=== PATIENT | female | born 1940 | race Caucasian/White ===

== ENCOUNTER 2018-04-22 18:18 | Inpatient (IN) | payer OTHER, MEDICARE ==
[2018-04-22] MEDS ORDERED: ACETAMINOPHEN 500 MG TAB PO PRN (19:53)
[2018-04-22] MEDS ORDERED: MAGNESIUM HYDROXIDE 8% 30 ML PO PRN (19:53)
[2018-04-22] MEDS ORDERED: MAGNES/ALUMIN/SIMET 30ML UCUP PO PRN (19:53)
[2018-04-22] MEDS ORDERED: ONDANSETRON 4 MG (ODT) TAB PO PRN (19:53)
[2018-04-22 20:25] LABS: Absolute Lymphocytes (CBC) 1.5 K/uL (0.7-4.9); Absolute Monocytes 0.5 K/uL (0.1-1.3); Absolute Neutrophil 3.7 K/uL (1.8-8.0); Basophils % 0.6 % (0-1.3); Eosinophils % 1.9 % (0-4.4); Hematocrit 38.8 % (36.0-45.0); MPV 8.1 fL (7.6-11.3); Monocytes % 8.4 % (3.3-12.3)
[2018-04-22] MEDS: IPRATROPIUM BROM 0.5MG/2.5ML NEB SCH (20:35)
[2018-04-22] MEDS: ALBUTEROL 2.5 MG/3 ML NEB SOL NEB SCH (20:35)
--- NOTE | 2018-04-22 20:47 | RAD REPORT ---
EXAM DESCRIPTION: Makenzie Sanderson (2 Views)04/22/2018 8:24 pm CLINICAL HISTORY: Cough COMPARISON: April 2017 FINDINGS: The lungs appear clear of acute infiltrate. The heart is borderline enlarged IMPRESSION: No acute abnormalities displayed
[2018-04-22 20:55] LABS: Albumin 3.6 g/dL (3.4-5.0); Bilirubin Total 0.2 mg/dL (0.2-1.0); Magnesium 2.1 mg/dL (1.8-2.4); Potassium 4.1 mmol/L (3.5-5.1); Protein, Total 7.3 g/dL (6.4-8.2); Thyroid Stimulating Hormone 0.398 uIU/mL (0.360-3.740)
[2018-04-22] MEDS ORDERED: CEFTRIAXONE 1 GM/NS 50 ML 1 GM/50 ML BAG IV SCH (21:00)
[2018-04-22] MEDS: DULERA 200/5 (MOMETASONE/FORMOTEROL) INHALER IH SCH (21:00)
[2018-04-22] MEDS: LISINOPRIL 20 MG TAB PO SCH (22:00)
[2018-04-22] MEDS: CEFTRIAXONE/SWI 1gm 1 GM/10 ML SYR IV SCH (22:43)
[2018-04-22] MEDS: ENOXAPARIN 40 MG/0.4 ML SQ SCH (22:55)
[2018-04-22] MEDS: METHYLPREDNISOLONE 40 MG INJ IV SCH (23:31)
[2018-04-22 23:47] VITALS: BMI 27.3
[2018-04-23 00:22] LABS: Urine Appearance CLOUDY; Urine Bilirubin NEGATIVE (NEG); Urine Blood NEGATIVE (NEG); Urine Color YELLOW; Urine Glucose NEGATIVE (NEG); Urine Protein NEGATIVE (NEG)
[2018-04-23 00:24] LABS: Urine Microscopic Reflex ORDER UMIC
[2018-04-23 00:35] LABS: Urine Bacteria LOADED /HPF (<20); Urine Culture Reflex Order REFLEXED; Urine RBC NONE SEEN /HPF (NONE SEEN)
[2018-04-23] MEDS: ALBUTEROL 2.5 MG/3 ML NEB SOL NEB SCH ×4 (02:25→20:50)
[2018-04-23] MEDS: IPRATROPIUM BROM 0.5MG/2.5ML NEB SCH ×4 (02:25→20:50)
[2018-04-23] MEDS: METHYLPREDNISOLONE 40 MG INJ IV SCH ×3 (06:10→17:15)
--- NOTE | 2018-04-23 07:15 | EKG ---
Test Date: 2018-04-22 Test Time: 20:35:57 Yard Hand: RT Zuniga MEASUREMENT RESULTS: Intervals: Rate: 65 MN: 202 QRSD: 86 QT: 404 QTc: 420 Nelson: P: 73 MN: 202 QRS: 12 T: 43 INTERPRETIVE STATEMENTS: Normal sinus rhythm Normal ECG Compared to ECG 12/29/2015 22:14:21 Ventricular premature complex(es) no longer present First degree AV block no longer present Left ventricular hypertrophy no longer present Myocardial infarct finding no longer present Electronically Signed On 04-23-18 07:14:55 [employer] WORK[employer] by Markel Salgado
--- NOTE | 2018-04-23 08:35 | HP ---
Date of Admission: 04/22/2018 Chief Complaint: Cough, congestion, shortness of breath. History Of Present Illness: This is an 78-year-old pleasant female patient who came into office toda y with almost 1-month history of cough, chest congestion, coughing up yellowish to greenish-colored m ucus, shortness of breath, and wheezing. The patient reported that she is having symptoms in last 1 month that some days she feels like she is better, other day she feels like she is worse, and in last few days she is increasingly getting worse, so she came into office today. [facility] until today when she called the office, she was asked to come in. After I evaluated h er, decision was made to admit her to hospital. The patient feels weaker than normal. Walking acros s the room causes her to have shortness of breath. She takes her medications regularly. Allergies: NO KNOWN ALLERGIES. Medications: Advair 500/50 one puff 2 times a day, Spiriva 1 puff daily, Tricor 145 mg daily, vitami n D 1000 unit daily, lisinopril 20 mg twice a day, ProAir inhaler p.r.n., diltiazem CD 240 mg p.o. da britton, Claritin 10 mg daily, Boniva 150 mg once a month, aspirin 81 mg daily, hydrochlorothiazide 12.5 mg p.o. daily. Review of Systems: Respiratory: As mentioned above. All other systems reviewed and negative. Social History: Prior history of smoking, not at present time. Family History: Significant for cervical cancer, lung cancer, and breast cancer. Past Surgical History: Significant for hysterectomy. Past Medical History: Significant for asthma, hypertension, hyperlipidemia, diverticulosis. Physical Examination: Vital Signs: When she came into office today, vital signs included height 62 inches, weight 153.8 po unds, blood pressure 127/81, pulse 100, respiratory rate 20, temperature 98. General: The patient awake, alert, appearing weaker than normal, not in any distress at rest, but wh ile talking to me she was getting into mild respiratory distress. HEENT: Head atraumatic, normocephalic. Conjunctivae nonerythematous. Sclerae white. Mouth, no thr ush or edema noted. Ears/Nose, no mass, lesion, discharge noted. Neck: Supple. No JVD, lymph nodes, bruit, thyromegaly noted. Lungs: Bilateral scattered wheezing and some rales in lower lung nicholson noted. Heart: Normal heart sounds, no murmur or gallop. Abdomen: Soft, bowel sounds normal. No guarding, rigidity, tenderness, mass, hepatosplenomegaly, dis tention, or bruit noted. Extremities: No leg edema. No calf tenderness. Skin: No rash, ulcer, cellulitis. Lymphatics: No lymph node enlargement in neck, supraclavicular, infraclavicular region. Neuro: No focal neurological deficit. Chest: Unremarkable. External Genitalia: Deferred. Rectal: Deferred. Labs: EKG normal sinus rhythm. White count 5.8, hemoglobin 13, platelets 304. Sodium 141, potassiu m 4.1, chloride 105, bicarb 29, BUN 24, creatinine 1.04, glucose 100. Liver function tests unremarka ble. Troponin less than 0.05. TSH 0.398. Chest x-ray, no acute abnormality detected. Impression: 1.Acute exacerbation of asthma. 2.Rule out pneumonia. 3.Hypertension. 4.Hyperlipidemia. 5.Diverticulosis. Plan: Admit the patient to hospital for further evaluation and management of this problem. The kal ent is appropriate for inpatient and is expected to spend 2 midnights in hospital. We will go ahead and continue her home medications per order. Give her oxygen nebulizer treatment, IV steroid, IV ant ibiotic. Sputum culture was ordered. DVT prophylaxis will be given using Lovenox. I will see her t omorrow for followup. The patient is appropriate for inpatient and is expected to spend 2 midnights in the hospital. Details and plan of treatment discussed with her. EMEKA/MODL Voice ID: [id number]
[2018-04-23] MEDS ORDERED: CEFTRIAXONE/SWI 1gm 1 GM/10 ML SYR IV SCH (09:00)
[2018-04-23] MEDS: DILTIAZEM HCL 120 MG SR CAP PO SCH (09:49)
[2018-04-23] MEDS: hydroCHLOROthiazide 12.5 MG CAP PO SCH (09:49)
[2018-04-23] MEDS: LISINOPRIL 20 MG TAB PO SCH ×2 (09:49→20:51)
[2018-04-23] MEDS: CEFTRIAXONE/SWI 1gm 1 GM/10 ML SYR IV SCH ×2 (09:50→21:00)
[2018-04-23] MEDS: TIOTROPIUM 5 SPRAYS/INHALER IH SCH (09:50)
[2018-04-23] MEDS: DULERA 200/5 (MOMETASONE/FORMOTEROL) INHALER IH SCH ×2 (09:50→20:53)
[2018-04-23] MEDS: ENOXAPARIN 40 MG/0.4 ML SQ SCH (20:51)
[2018-04-24] MEDS: METHYLPREDNISOLONE 40 MG INJ IV SCH ×4 (00:43→17:04)
--- NOTE | 2018-04-24 01:17 | PN ---
Date of Progress Note: 04/23/2018 Subjective: The patient was seen this morning for followup. She did get some sleep last night and f eels better today than yesterday. Still has lot of cough, chest congestion, wheezing, but overall sh marco antonio is doing better this morning compared to yesterday. Objective: Vital Signs: Reviewed. HEENT Examination: Unremarkable. Lungs: Bilateral good equal air entry. Scattered wheezing noted in all the lung nicholson which is bet ter today than yesterday. Some rales in lower lung nicholson, better today than yesterday. Heart: Sounds normal. Abdomen: Soft. Bowel sounds normal. No guarding, rigidity, tenderness, distention. Extremity Exam: No leg edema. Impression: 1.Acute exacerbation of asthma. 2.Acute bronchitis. 3.Hypertension. Plan: We will continue current medications. Continue antibiotic, IV steroid, nebulizer daily. Home medications per order. Ambulation was encouraged. I will see her tomorrow for followup. Possible discharge to go home in next 1 or 2 days depending on her condition. EMEKA/MODL Voice ID: [id number] Report ID: [id number]
[2018-04-24] MEDS: ALBUTEROL 2.5 MG/3 ML NEB SOL NEB SCH ×4 (01:55→20:45)
[2018-04-24] MEDS: IPRATROPIUM BROM 0.5MG/2.5ML NEB SCH ×4 (01:55→20:45)
[2018-04-24] MEDS: DULERA 200/5 (MOMETASONE/FORMOTEROL) INHALER IH SCH ×2 (08:38→20:43)
[2018-04-24] MEDS: CEFTRIAXONE/SWI 1gm 1 GM/10 ML SYR IV SCH ×2 (08:39→20:42)
[2018-04-24] MEDS: TIOTROPIUM 5 SPRAYS/INHALER IH SCH (08:40)
[2018-04-24] MEDS: SERTRALINE HCL 50 MG TAB PO SCH (10:06)
[2018-04-24] MEDS: DILTIAZEM HCL 120 MG SR CAP PO SCH (10:07)
[2018-04-24] MEDS: hydroCHLOROthiazide 12.5 MG CAP PO SCH (10:07)
[2018-04-24] MEDS: LISINOPRIL 20 MG TAB PO SCH ×2 (10:08→20:40)
[2018-04-24 18:23] VITALS: O2SAT 92
[2018-04-24] MEDS: ENOXAPARIN 40 MG/0.4 ML SQ SCH (20:42)
[2018-04-25] MEDS: METHYLPREDNISOLONE 40 MG INJ IV SCH ×2 (00:25→06:01)
--- NOTE | 2018-04-25 01:15 | PN ---
Date of Progress Note: 04/24/2018 Subjective: The patient was seen this morning for followup. Her cough, congestion, wheezing, and sh ortness of breath are improving on a nebulizer treatment. She did ambulate well yesterday, 2 to 3 bl ocks. The patient is reporting having some depression problem and tends to cry easily, has been unde r lot of stress lately, and is requesting some medications to help her with this difficult time. No homicidal or suicidal ideation. Objective: Vital Signs: Reviewed. HEENT: Unremarkable. Lungs: Clear to auscultation except bilateral scattered wheezing noted. No rales, not in any respir atory distress, and her wheezing is better today compared to yesterday. Heart: Heart sounds are normal. Abdomen: Soft. Bowel sounds are normal. No guarding, rigidity, tenderness, or distention. Extremities: No leg edema. Impression: 1.Acute exacerbation of asthma. 2.Depression. 3.Acute bronchitis. 4.Hypertension. Plan: We will continue current medication, steroid, antibiotics, nebulizer treatment, inhaler; and w e will go ahead and add Zoloft 25 mg p.o. daily. I will see her tomorrow for followup and possible d ischarge to home tomorrow depending on her condition. EMEKA/MODL Voice ID: [id number] Report ID: [id number]
[2018-04-25] MEDS: IPRATROPIUM BROM 0.5MG/2.5ML NEB SCH ×2 (02:20→07:35)
[2018-04-25] MEDS: ALBUTEROL 2.5 MG/3 ML NEB SOL NEB SCH ×2 (02:20→07:35)
[2018-04-25] MEDS: CEFTRIAXONE/SWI 1gm 1 GM/10 ML SYR IV SCH (08:53)
[2018-04-25] MEDS: DILTIAZEM HCL 120 MG SR CAP PO SCH (08:54)
[2018-04-25] MEDS: LISINOPRIL 20 MG TAB PO SCH (08:55)
[2018-04-25] MEDS: hydroCHLOROthiazide 12.5 MG CAP PO SCH (08:55)
[2018-04-25] MEDS: SERTRALINE HCL 50 MG TAB PO SCH (08:56)
[2018-04-25] MEDS: DULERA 200/5 (MOMETASONE/FORMOTEROL) INHALER IH SCH (08:56)
[2018-04-25] MEDS: TIOTROPIUM 5 SPRAYS/INHALER IH SCH (08:57)
[2018-04-25 08:59] VITALS: BP 148/71
[2018-04-25 10:12] VITALS: TEMP 98
[2018-04-25] MEDS ORDERED: ALBUTEROL 2.5 MG/3 ML NEB SOL NEB ONE (10:44)
== END 2018-04-25 11:50 | disposition home or self-care (01) | DRG 203 ==
LOC: 2ND 18:55
PROVIDERS: ADMIT Internal Medicine; ATTEND Internal Medicine
DX: J45.901 Unspecified asthma with (acute) exacerbation (principal); J20.9 Acute bronchitis, unspecified; I10 Essential (primary) hypertension; E78.5 Hyperlipidemia, unspecified; K57.90 Diverticulosis of intestine, part unspecified, without perforation or abscess without bleeding; F32.9 Major depressive disorder, single episode, unspecified
CPT/HCPCS: 36415; 71046; 80053; 81003; 81015; 83735; 84145; 84443; 85025; 87077; 87086; 87088; 87186; 93005; 94640; J0696; J1650; J2920; J7606

== ENCOUNTER 2018-06-26 14:01 | Emergency (ER) | payer OTHER, MEDICARE ==
[2018-06-26] MEDS ORDERED: CIPROFLOXACIN 400mg IV 400 MG/200 ML BAG IV ONE (18:31)
[2018-06-26] MEDS ORDERED: PANTOPRAZOLE 40 MG INJ ONE (18:31)
[2018-06-26] MEDS ORDERED: NA CHLORIDE 0.9% 1,000 ML ONE (18:31)
[2018-06-26] MEDS ORDERED: NA CHLORIDE 0.9% 250 ML ONE (18:31)
[2018-06-26] MEDS ORDERED: METRONIDAZOLE 500mg IVPB 500 MG/100 ML BAG IV ONE (18:31)
[2018-06-26 18:41] LABS: Absolute Lymphocytes (CBC) 1.6 K/uL (0.7-4.9); Absolute Monocytes 0.5 K/uL (0.1-1.3); Absolute Neutrophil 3.7 K/uL (1.8-8.0); Basophils % 0.8 % (0-1.3); Eosinophils % 1.6 % (0-4.4); Hematocrit 32.7 % (36.0-45.0); Lymphocytes % 26.2 % (15.3-44.8); MPV 9.5 fL (7.6-11.3); RBC Red Blood Cell Count 3.53 M/uL (3.86-4.86)
--- NOTE | 2018-06-26 18:45 | EDPHYS ---
Physician Documentation [facility] Name: Radha Corcoran Age: 78 yrs Sex: Female : 1940 Arrival Date: 06/26/2018 Time: 14:07 Bed 25 Private MD: ED Physician Sam Montiel HPI: 06/26 18:10 This 78 yrs old Female presents to ER via Ambulatory with complaints of checo Bloody Stools. 18:10 The patient presents with abdominal pain in the upper abdomen. Onset: The checo symptoms/episode began/occurred 2 day(s) ago. The patient presents to the emergency department with rectal bleeding, melena. Onset: The symptoms/episode began/occurred. Abdominal pain: none is appreciated. Modifying factors: The symptoms are alleviated by nothing, the symptoms are aggravated by nothing. Associated signs and symptoms: Pertinent positives: dizziness when standing. Modifying factors: The symptoms are alleviated by nothing, the symptoms are aggravated by nothing. Historical: - Allergies: 15:36 No Known Allergies; ph - PMHx: 15:36 Asthma; Hypertension; ph - PSHx: 15:36 Hysterectomy; ph - Immunization history:: Adult Immunizations unknown. - Social history:: Smoking status: Patient uses tobacco products. - Ebola Screening: : Patient negative for fever greater than or equal to 101.5 degrees Fahrenheit, and additional compatible Ebola Virus Disease symptoms Patient denies exposure to infectious person Patient denies travel to an Ebola-affected area in the 21 days before illness onset. ROS: 18:10 Constitutional: Negative for fever, chills, and weight loss, Eyes: Negative for injury, checo pain, redness, and discharge, ENT: Negative for injury, pain, and discharge, Neck: Negative for injury, pain, and swelling, Cardiovascular: Negative for chest pain, palpitations, and edema, Respiratory: Negative for shortness of breath, cough, wheezing, and pleuritic chest pain, Back: Negative for injury and pain, : Negative for injury, bleeding, discharge, and swelling, MS/Extremity: Negative for injury and deformity, Skin: Negative for injury, rash, and discoloration, Neuro: Negative for headache, weakness, numbness, tingling, and seizure. 18:10 Abdomen/GI: Positive for abdominal pain, black/tarry stool. Exam: 18:10 Constitutional: This is a well developed, well nourished patient who is awake, alert, checo and in no acute distress. Head/Face: Normocephalic, atraumatic. Eyes: Pupils equal round and reactive to light, extra-ocular motions intact. Lids and lashes normal. Conjunctiva and sclera are non-icteric and not injected. Cornea within normal limits. Periorbital areas with no swelling, redness, or edema. ENT: Nares patent. No nasal discharge, no septal abnormalities noted. Tympanic membranes are normal and external auditory canals are clear. Oropharynx with no redness, swelling, or masses, exudates, or evidence of obstruction, uvula midline. Mucous membranes moist. Neck: Trachea midline, no thyromegaly or masses palpated, and no cervical lymphadenopathy. Supple, full range of motion without nuchal rigidity, or vertebral point tenderness. No Meningismus. Chest/axilla: Normal chest wall appearance and motion. Nontender with no deformity. No lesions are appreciated. Cardiovascular: Regular rate and rhythm with a normal S1 and S2. No gallops, murmurs, or rubs. Normal PMI, no JVD. No pulse deficits. Respiratory: Lungs have equal breath sounds bilaterally, clear to auscultation and percussion. No rales, rhonchi or wheezes noted. No increased work of breathing, no retractions or nasal flaring. Back: No spinal tenderness. No costovertebral tenderness. Full range of motion. Female : Normal external genitalia. Skin: Warm, dry with normal turgor. Normal color with no rashes, no lesions, and no evidence of cellulitis. MS/ Extremity: Pulses equal, no cyanosis. Neurovascular intact. Full, normal range of motion. Neuro: Awake and alert, GCS 15, oriented to person, place, time, and situation. Cranial nerves II-XII grossly intact. Motor strength 5/5 in all extremities. Sensory grossly intact. Cerebellar exam normal. Normal gait. Psych: Awake, alert, with orientation to person, place and time. Behavior, mood, and affect are within normal limits. 18:10 Abdomen/GI: Inspection: abdomen appears normal, Bowel sounds: normal, Palpation: mild abdominal tenderness, in the epigastric area, right upper quadrant and left upper quadrant. Vital Signs: 15:36 BP 189 / 61; Pulse 76; Resp 18; Temp 98.2; Pulse Ox 97% on R/A; Weight 68.04 kg; Height ph 5 ft. 1 in. (154.94 cm); 17:59 BP 133 / 61 RA; Pulse 64; Resp 16 S; Pulse Ox 98% on R/A; rv 18:55 BP 148 / 82; Pulse 66; Resp 21; Pulse Ox 94% on R/A; ca1 19:50 BP 139 / 59; Pulse 69; Resp 19; Pulse Ox 100% on 2 lpm NC; ca1 20:55 BP 158 / 70; Pulse 70; Resp 19; Pulse Ox 100% on 2 lpm NC; ca1 21:50 BP 143 / 72; Pulse 71; Resp 19; Pulse Ox 100% on 2 lpm NC; ca1 15:36 Body Mass Index 28.34 (68.04 kg, 154.94 cm) ph MDM: 17:50 Patient medically screened. [facility] 18:14 Data reviewed: vital signs, nurses notes, lab test result(s), EKG, radiologic studies, [facility] CT scan, plain films. 06/26 18:10 Order name: Basic Metabolic Panel; Complete Time: 19:13 [facility] 06/26 18:10 Order name: CBC with Diff; Complete Time: 19:13 [facility] 06/26 18:10 Order name: LFT's; Complete Time: 19:13 [facility] 06/26 18:10 Order name: Magnesium; Complete Time: 19:13 [facility] 06/26 18:10 Order name: NT PRO-BNP; Complete Time: 19:13 [facility] 06/26 18:10 Order name: PT-INR; Complete Time: 19:13 [facility] 06/26 18:10 Order name: Troponin (emerg Dept Use Only); Complete Time: 19:13 [facility] 06/26 18:10 Order name: XRAY Chest (1 view); Complete Time: 19:13 [facility] 06/26 18:10 Order name: Lipase; Complete Time: 19:13 [facility] 06/26 18:10 Order name: CT Abd/Pelvis - W/Contrast [facility] 06/26 18:10 Order name: Type And Screen [facility] 06/26 19:55 Order name: ABO/RH no charge [facility] 06/26 20:20 Order name: Urine Dipstick--Ancillary (enter results) mw2 06/26 18:10 Order name: EKG; Complete Time: 18:11 [facility] 06/26 18:10 Order name: Cardiac monitoring; Complete Time: 18:46 [facility] 06/26 18:10 Order name: EKG - Nurse/Tech; Complete Time: 20:21 [facility] 06/26 18:10 Order name: IV Saline Lock; Complete Time: 18:47 [facility] 06/26 18:10 Order name: Labs collected and sent; Complete Time: 18:47 [facility] 06/26 18:10 Order name: O2 Per Protocol; Complete Time: 18:47 [facility] 06/26 18:10 Order name: O2 Sat Monitoring; Complete Time: 18:47 [facility] 06/26 18:10 Order name: Urine Dipstick-Ancillary (obtain specimen); Complete Time: 20:21 [facility] 06/26 18:10 Order name: IV Saline Lock - Large Bore; Complete Time: 18:32 [facility] Administered Medications: Discontinued: NS 0.9% 1000 ml IV at 125 ml/hr continuous 09:50 Drug: NS 0.9% 500 ml Route: IV; Rate: bolus; Site: right antecubital; ca1 21:27 Follow up: Response: No adverse reaction; IV Status: Completed infusion ca1 18:30 Drug: ProTONIX 80 mg Route: IVP; Site: left antecubital; rv 21:28 Follow up: Response: No adverse reaction ca1 18:33 Drug: ProTONIX 8 mg/hr Route: IV; Rate: 25 ml/hr; Site: left antecubital; rv 21:28 Follow up: Response: No adverse reaction; IV Status: Infusion continued upon transfer ca1 18:33 Drug: NS 0.9% 1000 ml Route: IV; Rate: 125 ml/hr; Site: left antecubital; rv 18:35 Drug: Flagyl 500 mg Volume: 100 ml; Route: IVPB; Rate: 200 ml/hr; Infused Over: 30 ca1 mins; Site: right antecubital; 19:10 Follow up: Response: No adverse reaction; IV Status: Completed infusion ca1 19:30 Drug: Cipro 400 mg Volume: 200 ml; Route: IVPB; Infused Over: 60 mins; Site: right ca1 antecubital; 21:27 Follow up: Response: No adverse reaction; IV Status: Completed infusion ca1 19:53 Drug: NS 0.9% with KCl 20 mEq/L 1000 ml Route: IV; Rate: 125 ml/hr; Site: left ca1 antecubital; 21:28 Follow up: IV Status: Infusion continued upon transfer ca1 22:01 Drug: Zofran 4 mg Route: IVP; Site: right antecubital; ca1 22:00 Follow up: Response: Medication administered at discharge. ca1 Disposition: 06/26/18 18:45 Transfer ordered to [facility]. Diagnosis are Abdominal tenderness, Gastrointestinal hemorrhage, unspecified, Anemia, unspecified. - Reason for transfer: Higher level of care. - Accepting physician is to [facility]. - Condition is Stable. - Problem is new. - Symptoms have improved. Signatures: Dispatcher [employer] EDSam Roberts MD MD cha Hall, Patricia, RN RN Richie Higgins RN RN Beba Astudillo RN RN ca1 Corrections: (The following items were deleted from the chart) 19:15 18:45 06/26/2018 18:45 Transfer ordered to [facility]. Diagnosis is checo Abdominal tenderness; Gastrointestinal hemorrhage, unspecified. Reason for transfer: Higher level of care. Accepting physician is to [facility]. Condition is Stable. Problem is new. Symptoms have improved. checo 22:03 19:15 06/26/2018 18:45 Transfer ordered to [facility]. Diagnosis is ca1 Abdominal tenderness; Gastrointestinal hemorrhage, unspecified; Anemia, unspecified. Reason for transfer: Higher level of care. Accepting physician is to [facility]. Condition is Stable. Problem is new. Symptoms have improved. checo
--- NOTE | 2018-06-26 18:45 | ER ---
Nurse's Notes [facility] Name: Radha Corcoran Age: 78 yrs Sex: Female : 1940 Arrival Date: 06/26/2018 Time: 14:07 Bed 25 Private MD: Diagnosis: Abdominal tenderness;Gastrointestinal hemorrhage, unspecified;Anemia, unspecified Presentation: 06/26 15:32 Presenting complaint: Patient states: Abdominal bloating x 1 week and diarrhea, last ph night stools were normal consistency w/ some blood noted, today stools normal w/ " a lot" of bright red in toilet, reports diffuse abdominal pain, worse in RLQ, and dizziness. Transition of care: patient was not received from another setting of care. Onset of symptoms was June 26, 2018. Risk Assessment: Do you want to hurt yourself or someone else? Patient reports no desire to harm self or others. Care prior to arrival: None. 15:32 Method Of Arrival: Ambulatory ph 15:32 Acuity: [facility]I 3 ph 17:36 Initial Sepsis Screen: Does the patient meet any 2 criteria? No. Patient's initial rv sepsis screen is negative. Does the patient have a suspected source of infection? No. Patient's initial sepsis screen is negative. Historical: - Allergies: 15:36 No Known Allergies; ph - PMHx: 15:36 Asthma; Hypertension; ph - PSHx: 15:36 Hysterectomy; ph - Immunization history:: Adult Immunizations unknown. - Social history:: Smoking status: Patient uses tobacco products. - Ebola Screening: : Patient negative for fever greater than or equal to 101.5 degrees Fahrenheit, and additional compatible Ebola Virus Disease symptoms Patient denies exposure to infectious person Patient denies travel to an Ebola-affected area in the 21 days before illness onset. Screenin:35 Abuse screen: Denies threats or abuse. Denies injuries from another. Nutritional rv screening: No deficits noted. Tuberculosis screening: No symptoms or risk factors identified. Fall Risk None identified. Assessment: 17:34 General: Appears in no apparent distress. comfortable, Behavior is calm, cooperative. rv Pain: Denies pain. Neuro: Level of Consciousness is awake, alert, obeys commands, Oriented to person, place, time, situation. Cardiovascular: Capillary refill < 3 seconds. Respiratory: Reports Airway is patent. GI: Reports diarrhea, bloody stool. : No signs and/or symptoms were reported regarding the genitourinary system. EENT: No signs and/or symptoms were reported regarding the EENT system. Derm: Skin is intact. Musculoskeletal: No signs and/or symptoms reported regarding the musculoskeletal system. 18:20 Reassessment: Patient appears in no apparent distress at this time. Patient and/or ca1 family updated on plan of care and expected duration. Pain level reassessed. Patient is alert, oriented x 3, equal unlabored respirations, skin warm/dry/pink. Patient denies pain at this time. 19:25 Reassessment: Patient appears in no apparent distress at this time. Patient and/or ca1 family updated on plan of care and expected duration. Pain level reassessed. Patient is alert, oriented x 3, equal unlabored respirations, skin warm/dry/pink. 20:20 Reassessment: Patient appears in no apparent distress at this time. Patient and/or ca1 family updated on plan of care and expected duration. Pain level reassessed. Patient is alert, oriented x 3, equal unlabored respirations, skin warm/dry/pink. 20:25 Reassessment: Pt to CT scan. ca1 20:35 Reassessment: Called report to Fauzia Green RN at [facility]. ca1 21:21 Reassessment: Patient appears in no apparent distress at this time. Patient and/or ca1 family updated on plan of care and expected duration. Pain level reassessed. Patient is alert, oriented x 3, equal unlabored respirations, skin warm/dry/pink. Awaiting ambulance. 22:01 Reassessment: Patient appears in no apparent distress at this time. Hand off to EMS ca1 [place]. Vital Signs: 15:36 BP 189 / 61; Pulse 76; Resp 18; Temp 98.2; Pulse Ox 97% on R/A; Weight 68.04 kg; Height ph 5 ft. 1 in. (154.94 cm); 17:59 BP 133 / 61 RA; Pulse 64; Resp 16 S; Pulse Ox 98% on R/A; rv 18:55 BP 148 / 82; Pulse 66; Resp 21; Pulse Ox 94% on R/A; ca1 19:50 BP 139 / 59; Pulse 69; Resp 19; Pulse Ox 100% on 2 lpm NC; ca1 20:55 BP 158 / 70; Pulse 70; Resp 19; Pulse Ox 100% on 2 lpm NC; ca1 21:50 BP 143 / 72; Pulse 71; Resp 19; Pulse Ox 100% on 2 lpm NC; ca1 15:36 Body Mass Index 28.34 (68.04 kg, 154.94 cm) ph ED Course: 14:07 Patient arrived in ED. tw3 15:36 Triage completed. ph 15:36 Arm band placed on Patient placed in waiting room, Patient notified of wait time. ph 17:29 Beba Astudillo, RN is Primary Nurse. ca1 17:35 Patient has correct armband on for positive identification. Bed in low position. Call rv light in reach. Side rails up X 1. Pulse ox on. NIBP on. 17:50 Sam Montiel MD is Attending Physician. checo 18:18 Oral contrast given. vm2 18:20 Inserted saline lock: 18 gauge in left antecubital area, using aseptic technique. Blood rv collected. 18:45 XRAY Chest (1 view) In Process Unspecified. EDMS 19:00 Inserted saline lock: 20 gauge in right antecubital area, using aseptic technique. ca1 20:[address] via wheelchair. nj 20:36 CT completed. Patient tolerated procedure well. Patient moved back from CT. nj 20:36 CT Abd/Pelvis - W/Contrast In Process Unspecified. EDMS 22:02 No provider procedures requiring assistance completed. Patient transferred, IV remains ca1 in place. Administered Medications: Discontinued: NS 0.9% 1000 ml IV at 125 ml/hr continuous 09:50 Drug: NS 0.9% 500 ml Route: IV; Rate: bolus; Site: right antecubital; ca1 21:27 Follow up: Response: No adverse reaction; IV Status: Completed infusion ca1 18:30 Drug: ProTONIX 80 mg Route: IVP; Site: left antecubital; rv 21:28 Follow up: Response: No adverse reaction ca1 18:33 Drug: ProTONIX 8 mg/hr Route: IV; Rate: 25 ml/hr; Site: left antecubital; rv 21:28 Follow up: Response: No adverse reaction; IV Status: Infusion continued upon transfer ca1 18:33 Drug: NS 0.9% 1000 ml Route: IV; Rate: 125 ml/hr; Site: left antecubital; rv 18:35 Drug: Flagyl 500 mg Volume: 100 ml; Route: IVPB; Rate: 200 ml/hr; Infused Over: 30 ca1 mins; Site: right antecubital; 19:10 Follow up: Response: No adverse reaction; IV Status: Completed infusion ca1 19:30 Drug: Cipro 400 mg Volume: 200 ml; Route: IVPB; Infused Over: 60 mins; Site: right ca1 antecubital; 21:27 Follow up: Response: No adverse reaction; IV Status: Completed infusion ca1 19:53 Drug: NS 0.9% with KCl 20 mEq/L 1000 ml Route: IV; Rate: 125 ml/hr; Site: left ca1 antecubital; 21:28 Follow up: IV Status: Infusion continued upon transfer ca1 22:01 Drug: Zofran 4 mg Route: IVP; Site: right antecubital; ca1 22:00 Follow up: Response: Medication administered at discharge. ca1 Outcome: 18:45 ER care complete, transfer ordered by . checo 22:03 Transferred by ground EMS to [facility], Transfer form completed. ca1 X-rays sent w/ patient. 22:03 Condition: stable 22:03 Instructed on the need for transfer. 22:03 Patient left the ED. ca1 Signatures: Dispatcher [employer] EDMS Sam Montiel MD MD cha Hall, Patricia, RN RN [facility], Erica Reza 3 Nyla Love 2 Richie Higgins RN RN rv Acob, Cheryl, RN RN ca1 Corrections: (The following items were deleted from the chart) 21:20 17:34 GI: Reports diarrhea, bloody stool, rv ca1 06/27 00:04 00:02 Response: Medication administered at discharge. ca1 ca1
[2018-06-26 18:49] LABS: Protime INR 0.97
--- NOTE | 2018-06-26 18:51 | RAD REPORT ---
EXAM DESCRIPTION: RAD - Chest Single View - 06/26/2018 6:45 pm CLINICAL HISTORY: Cough;Abdominal distention Chest pain. COMPARISON: Chest Pa And Lat (2 Views) dated 04/22/2018; Chest Pa And Lat (2 Views) dated 05/03/2017; C hest Single View dated 12/29/2015; CHEST PA AND LAT 2 VIEW dated 01/20/2014 FINDINGS: Portable technique limits examination quality. The lungs are grossly clear. The heart is normal in size. No displaced fractures.Aortic atheroscleros is. IMPRESSION: No acute intrathoracic process suspected.
[2018-06-26 19:04] LABS: ALT/SGPT 24 U/L (12-78); AST/SGOT 16 U/L (15-37); Albumin 3.5 g/dL (3.4-5.0); Alkaline Phosphatase 25 U/L (45-117); BUN Blood Urea Nitrogen 35 mg/dL (7-18); Bicarbonate 30 mmol/L (21-32); Bilirubin Direct < 0.1 mg/dL (0-0.2); Bilirubin Total 0.2 mg/dL (0.2-1.0); Glucose Level 118 mg/dL (74-106); Lipase 85 U/L (73-393); Magnesium 2.2 mg/dL (1.8-2.4); NT PRO-BNP 280 pg/mL (<450); Potassium 3.2 mmol/L (3.5-5.1); Protein, Total 6.5 g/dL (6.4-8.2); Sodium Level 141 mmol/L (136-145); Troponin (Emerg Dept Use Only) 0.02 ng/mL (0.0-0.045)
[2018-06-26] MEDS ORDERED: NS KCL 20MEQ 1,000 ML IV ONE (20:00)
[2018-06-26] MEDS ORDERED: NA CHLORIDE 0.9% 500 ML ONE ×2 (20:00→20:01)
[2018-06-26 20:36] LABS: Urine Blood 1+ (NEG); Urine Glucose NEGATIVE (NEG); Urine Protein NEGATIVE (NEG); Urine Specific Gravity 1.015 (1.005-1.030); Urine pH 5.5 (5.0-7.0)
--- NOTE | 2018-06-26 20:47 | RAD REPORT ---
EXAM DESCRIPTION: CTAbdomen Pelvis W Contrast - 06/26/2018 8:36 pm CLINICAL HISTORY: Abdominal pain. ABD PAIN COMPARISON: CT ABD PELVIS W CONTRAST dated 08/31/2008 TECHNIQUE: Biphasic CT imaging of the abdomen and pelvis was performed with 100 ml non-ionic IV cont rast. All CT scans are performed using dose optimization technique as appropriate and may include automated exposure control or mA/KV adjustment according to patient size. FINDINGS: The lung bases are clear. Mild diffuse fatty liver is present. No aggressive liver lesion or biliary dilatation. The spleen, ad renal glands are normal. Several cysts are present in both kidneys. No hydronephrosis. The pancreas c ontains a few calcifications likely indicating chronic pancreatitis. No pancreatic ductal dilatation. No bowel obstruction, free air, free fluid or abscess. Prominent diverticulosis is present throughout the colon. No evidence of diverticulitis. The appendix is not identified as a discrete structure, ho wever, no secondary findings of appendicitis are identified. Aortic atherosclerosis is present. No e vidence of significant lymphadenopathy. Moderate lumbosacral degenerative changes. IMPRESSION: Extensive colonic diverticulosis without diverticulitis. No acute intra-abdominal or pel lexx abnormality seen.
[2018-06-26] MEDS ORDERED: ONDANSETRON 4 MG/2 ML VIAL ONE (22:09)
[2018-06-26 23:31] VITALS: TEMP 98.2
[2018-06-26 23:37] VITALS: O2SAT 100
[2018-06-26 23:39] VITALS: BP 158/70
--- NOTE | 2018-06-27 05:32 | EKG ---
Test Date: 2018-06-26 Test Time: 19:24:26 Human Resources Operations Specialist: MILTON MEASUREMENT RESULTS: Intervals: Rate: 65 IN: 134 QRSD: 98 QT: 452 QTc: 470 [place]: P: IN: 134 QRS: 26 T: 158 INTERPRETIVE STATEMENTS: Normal sinus rhythm T wave abnormality, consider anterolateral ischemia Prolonged QT Abnormal ECG Compared to ECG 04/22/2018 20:35:57 T-wave abnormality now present Possible ischemia now present Prolonged QT interval now present Electronically Signed On 06-27-18 05:31:26 CDT by Markel Salgado
== END 2018-06-26 22:03 | disposition short-term general hospital (02) ==
LOC: ER 14:01
DX: D64.9 Anemia, unspecified (principal); K92.2 Gastrointestinal hemorrhage, unspecified; I10 Essential (primary) hypertension; Z72.0 Tobacco use
CPT/HCPCS: 93005; 85025; 80048; 36415; 86900; 83735; 86850; 85610; 86901; 80076; 81003; 84484; 83690; 83880; 74177; 71045; 99285; Q9967; C9113; J7030; J2405; J0744

== ENCOUNTER 2019-02-16 13:17 | Inpatient (IN) | payer OTHER, MEDICARE ==
[2019-02-16 14:11] LABS: Absolute Lymphocytes (CBC) 1.1 K/uL (0.7-4.9); Basophils % 0.7 % (0-1.3); Hematocrit 39.8 % (36.0-45.0); MPV 8.8 fL (7.6-11.3); RBC Red Blood Cell Count 4.47 M/uL (3.86-4.86)
[2019-02-16 14:29] LABS: Albumin 3.9 g/dL (3.4-5.0); Bilirubin Total 0.4 mg/dL (0.2-1.0); Magnesium 1.9 mg/dL (1.8-2.4); Potassium 3.7 mmol/L (3.5-5.1); Protein, Total 6.9 g/dL (6.4-8.2)
--- NOTE | 2019-02-16 14:36 | RAD REPORT ---
EXAM DESCRIPTION: RAD - Chest Pa And Lat (2 Views) - 02/16/2019 2:31 pm CLINICAL HISTORY: afib Chest pain. COMPARISON: Chest Single View dated 06/26/2018; Chest Pa And Lat (2 Views) dated 04/22/2018; Chest Pa A nd Lat (2 Views) dated 05/03/2017; Chest Single View dated 12/29/2015 FINDINGS: The lungs are mildly emphysematous but clear. The heart is mildly enlarged in size. No dis placed fractures. Aortic atherosclerosis.
[2019-02-16 14:38] VITALS: BMI 27.2
[2019-02-16 15:14] LABS: Troponin I < 0.02 ng/mL (0.0-0.045)
[2019-02-16] MEDS: APIXABAN 5 MG TABLET PO SCH ×2 (15:14→22:30)
[2019-02-16] MEDS: SOTALOL HCL 80 MG TAB PO SCH ×2 (15:14→22:30)
--- NOTE | 2019-02-16 15:54 | ECHO ---
HEIGHT: 5 ft 2 in WEIGHT: 149 lb 0 oz DATE OF STUDY: 02/16/[address]: Todd Hameed MD 2-DIMENSIONAL: YES M.MODE: YES DOPPLER: YES COLOR FLOW: YES TDS: NO PORTABLE: NO DEFINITY: NO BUBBLE STUDY: NO DIAGNOSIS: ATRIAL FIBRILLATION CARDIAC HISTORY: CATHERIZATION: NO SURGERY: NO PROSTHETIC VALVE: NO PACEMAKER: NO MEASUREMENTS (cm) DIASTOLIC (NORMALS) SYSTOLIC (NORMALS) IVSd 0.9 (0.6-1.2) LA Diam 3.2 (1.9-4.0) LVEF 52% LVIDd 5.1 (3.5-5.7) LVIDs 3.7 (2.0-3.5) %FS 27% LVPWd 1.0 (0.6-1.2) Ao Diam 2.9 (2.0-3.7) 2 DIMENSIONAL ASSESSMENT: RIGHT ATRIUM: NORAML LEFT ATRIUM: NORMAL RIGHT VENTRICLE: NORMAL LEFT VENTRICLE: NORMAL TRICUSPID VALVE: NORMAL MITRAL VALVE: NORMAL PULMONIC VALVE: NORMAL AORTIC VALVE: MILD SCLEROSIS PERICARDIAL EFFUSION: NONE AORTIC ROOT: NORMAL LEFT VENTRICULAR WALL MOTION: NORMAL DOPPLER/COLOR FLOW: MILD MITRAL AND TRICUSPID REGURGITATION. NORMAL RIGHT VENTRICULAR SYSTOLIC PRESSURE. COMMENTS: NORMAL LEFT VENTRICULAR EJECTION FRACTION. AORTIC SCLEROSIS WITH NO AORTIC STENOSIS OR AORTIC REGURGITATION. MILD MITRAL AND TRICUSPID REGURGITATION. TECHNOLOGIST: Sammy MARTINEZ
--- NOTE | 2019-02-16 21:15 | CON ---
History Of Present Illness: Ms. Corcoran was feeling a little dyspneic for several days. She thought she had a cold, but no fevers or chills or sore throat. She was just more short of breath and fatigued than usual. She saw Dr. Hameed and was found to be in atrial fib. We do not know how long she might have been in atrial fib. We do have electrocardiograms from June of this year when she was in sinus rhythm and she is in atrial fib now. She denies having any diagnosis of atrial fib in the past. She has asthma, onset age 23. She was a cigarette smoker, but stopped more than 30 years ago. Outpatient Medications: Albuterol, diltiazem, fenofibrate, hydrochlorothiazide , tiotropium bromide, vitamin D, acetaminophen, lisinopril, omega-3 fatty acids , fluticasone with salmeterol, sertraline, lansoprazole, multivitamin with iron , benzonatate, lactobacillus acidophilus, probiotic capsules, and docusate sodium. About 10 months ago she had GI bleeding, was found to have severe diverticulosis , diverticulitis. She was transferred to one of the hospitals in [place], underwent a procedure, but she does not know what was done. I assume resection of the worst part of the colon was done. It was a surgical procedure with general anesthesia, laparoscopic, but I do not have any of the results. Physical Examination: General: Patient is 5 feet 2, 149 pounds. Alert, oriented, pleasant, not in distress. Vital Signs: Her heart rate is about 110, irregularly irregular. Abdomen: Soft. Extremities: Trace edema, distal pulses normal. Heart: Irregularly irregular, otherwise normal. An echocardiogram was in progress while I was examining her. Her ejection fraction is normal. She seemed to have mild mitral and tricuspid regurgitation without pulmonary hypertension. Impression: The patient has atrial fibrillation, duration unknown. I would not recommend doing a cardioversion, although she has already received Betapace and Eliquis. I think that is fine, but I would not recommend doing a cardioversion until she has been on Eliquis for a couple of weeks and demonstrated her ability to tolerate it. I say that given her history of diverticulitis, diverticulosis. Her hemoglobin today was 13.4, creatinine 0.72 , blood sugar 91. Troponins are normal. TSH is normal. Thank you very much for your kind referral of Ms. Corcoran. I will follow her with you. CHRISTY Voice ID: [id number] Report ID: [id number]
[2019-02-17 00:59] VITALS: O2SAT 94
[2019-02-17] MEDS: SOTALOL HCL 80 MG TAB PO SCH (10:21)
[2019-02-17] MEDS: APIXABAN 5 MG TABLET PO SCH (10:21)
--- NOTE | 2019-02-17 15:31 | PN ---
Date of Progress Note: 02/17/2019 Ms. Corcoran was admitted by Dr. Hameed on 02/16/[address] Salgado for new onset atrial fibrillat ion. She has a history of asthma and hypertension. There was some question of GI bleed, but her hem oglobin was 13.8. Her EKG showed atrial fibrillation at a rate of 100, but she is now on sotalol and Eliquis. Her heart rate today is in the 80s. She is still in atrial fibrillation. She has receive d 2 doses of that. Echocardiogram with normal ejection fraction with aortic sclerosis, mitral annula r calcification. Chest x-ray shows COPD. She is fairly asymptomatic today from an atrial fibrillati on standpoint. We will give her 1 more dose of sotalol. After that, she can go home on sotalol and Eliquis and if she remains in atrial fibrillation over the next 2 to 3 weeks, we will plan a cardiove rsion then. I will discuss the case further with Dr. Hameed. MARCIA/JADE Voice ID: [id number] Report ID: [id number]
[2019-02-17 17:05] VITALS: BP 119/86; TEMP 97.9
--- NOTE | 2019-02-18 03:47 | DS ---
Date of Discharge: 02/17/2019 Disposition: Discharged home. Physical Examination: HEENT: Unremarkable. Lungs: Clear to auscultation. Heart: Sounds normal. Abdomen: Soft. Bowel sounds normal. No guarding, rigidity, tenderness, or distention. Extremities: No leg edema. Laboratory Data: Labs done during this hospitalization, sodium 142, potassium 3.7, chloride 105, bic arb 31, BUN 17, creatinine 0.82, glucose 91. Liver function tests unremarkable. TSH normal. Tropon ins normal. White count 4.5, hemoglobin 13.4, platelets 236. Echocardiogram done during this hospital stay shows normal ejection fraction 52%. Discharge Medications: Continue prior home medications except stop diltiazem, start sotalol 80 mg tw ice a day, Eliquis 5 mg twice a day. Followup: Follow up with [facility] in 2-3 weeks and follow up in my office on 02/23/2019, at 9 a.m. Discharge Diagnoses: 1.Atrial fibrillation, chronic. 2.Chronic obstructive pulmonary disease. 3.Hypertension. 4.Hyperlipidemia. 5.Diverticulosis. EMEKA/MODL Voice ID: [id number] Report ID: [id number]
--- NOTE | 2019-02-18 04:56 | HP ---
Date of Admission: 02/16/2019 Chief Complaint: Irregular heartbeats. History Of Present Illness: An 78-year-old very pleasant female, regular followup visit. She did no t have any chest pain, palpitations, shortness of breath, or any other specific complaints. Upon exa mination, she was noted to have irregular heartbeats and rapid heart rate. She was sent for a stat E KG. EKG came back atrial fibrillation and she was admitted to the hospital. She denies any recent f ebrile illness. No vomiting or diarrhea type of problem. Medications: List reviewed. Review of Systems: Cardiovascular: As mentioned above, all other systems reviewed and negative. Allergies: NO KNOWN DRUG ALLERGIES. Social History: Prior history of smoking, not at present time. Use of alcohol, negative. Family History: Significant for cervical cancer, lung cancer, breast cancer. Past Surgical History: Significant for hysterectomy. Past Medical History: Asthma, COPD, hypertension, hyperlipidemia, diverticulosis. Physical Examination: Vital Signs: Temperature 98.2, pulse 109, respiratory rate 18, blood pressure 143/103, oxygen satura tion 97%, height 5 feet 3 inches, weight 149 pounds, blood pressure . General: Awake, alert, oriented, not in distress. HEENT: Head atraumatic, normocephalic. Conjunctivae nonerythematous. Sclerae white. Mouth, no thr ush or edema noted. Ears/Nose, no mass, lesion, discharge noted. Neck: Supple. No JVD, lymph nodes, bruit, thyromegaly noted. Lungs: Bilateral good equal air entry. Clear to auscultation. No rhonchi. No rales. Heart: Presence of irregular heartbeats. Abdomen: Soft, bowel sounds normal. No guarding, rigidity, tenderness, mass, hepatosplenomegaly, dis tention, or bruit noted. Extremities: No leg edema. No calf tenderness. Skin: No rash, ulcer, cellulitis. Lymphatics: No lymph node enlargement in neck, supraclavicular, infraclavicular region. Neuro: No focal neurological deficit. Chest: Unremarkable. External Genitalia: Deferred. Rectal: Deferred. Laboratory Data: White count 4.5, hemoglobin 13.4, platelets 236. Sodium 132, potassium 3.7, chlori de 105, bicarb 31, BUN 17, creatinine 0.82, glucose 91. Liver function tests unremarkable. Troponin less than 0.03. TSH 1.67. Chest x-ray, no acute cardiopulmonary changes. Impression: 1.Atrial fibrillation . 2.Hypertension. 3.Hyperlipidemia. 4.Chronic obstructive pulmonary disease. 5.Asthma. 6.Diverticulosis. Plan: Admit the patient to the hospital for further evaluation and management of this problem. The patient is appropriate for inpatient. An injection of start her on anticoagulant medicati on Eliquis and risk and benefit of anticoagulation therapy explained to her. We will start her on an tiarrhythmic medication sotalol. Monitor on telemetry unit. If her condition is stable after 3 dose s, we will plan to discharge her to go home if okay with the paediatric thoracic physician. Echocardiogram was ordere d to be done today. Details of plan of treatment discussed with the patient. I will see her tomorrow for followup. EMEKA/MODL Voice ID: [id number]
--- OUTSIDE RECORDS SUMMARY | 2019-02-22 21:24 | XMS REPORT ---
:1940 [facility] Address [address] [place] [address] Care Team Providers Name Role Phone CHITRA FRENCH Unavailable Unavailable Problems This patient has no known problems. Allergies, Adverse Reactions, Alerts This patient has no known allergies or adverse reactions. Medications This patient has no known medications. Results Test Description Test Time Test Comments Text Results Atomic Results Result Comments BLOOD CULTURE 2018-07-10 20:01:00 Test Item Value Reference Range Comments CULTURE (BEAKER) (test vvsb=3884) No growth in 5 days BLOOD [id number] 20:01:00 Test Item Value Reference Range Comments CULTURE (BEAKER) (test lfua=8404) No growth in 5 days BASIC METABOLIC [id number] 07:48:00 Test Item Value Reference Range Comments SODIUM (BEAKER) (test 134 meq/L 136-145 gvvz=321) POTASSIUM (BEAKER) (test 4.9 meq/L 3.5-5.1 stoc=237) CHLORIDE (BEAKER) (test 101 meq/L 98-107 ezqj=799) CO2 (BEAKER) (test 26 meq/L 22-29 bruz=432) BLOOD UREA NITROGEN 27 mg/dL 7-21 (BEAKER) (test knnc=957) CREATININE (BEAKER) (test 0.67 mg/dL 0.57-1.25 gjcx=119) GLUCOSE RANDOM (BEAKER) 161 mg/dL 70-105 (test cpss=717) CALCIUM (BEAKER) (test 9.1 mg/dL 8.4-10.2 kact=518) EGFR (BEAKER) (test 85 mL/min/1.73 sq m ESTIMATED GFR IS NOT pnpq=8946) ACCURATE CREATININE CLEARANCE IN PREDICTING GLOMERULAR FILTRATION RATE. ESTIMATED GFR IS NOT APPLICABLE FOR DIALYSIS PATIENTS. CBC (HEMOGRAM ONLY)2018-07-09 06:36:00 Test Item Value Reference Range Comments WHITE BLOOD CELL COUNT (BEAKER) (test kewb=085) 5.9 K/ L 3.5-10.5 RED BLOOD CELL COUNT (BEAKER) (test qszl=447) 3.11 M/ L 3.93-5.22 HEMOGLOBIN (BEAKER) (test jcxs=496) 9.7 GM/DL 11.2-15.7 HEMATOCRIT (BEAKER) (test icfi=798) 29.9 % 34.1-44.9 MEAN CORPUSCULAR VOLUME (BEAKER) (test ufwv=855) 96.1 fL 79.4-94.8 MEAN CORPUSCULAR HEMOGLOBIN (BEAKER) (test 31.2 pg 25.6-32.2 gmkm=563) MEAN CORPUSCULAR HEMOGLOBIN CONC (BEAKER) (test 32.4 GM/DL 32.2-35.5 yhpx=533) RED CELL DISTRIBUTION WIDTH (BEAKER) (test 14.9 % 11.7-14.4 xhun=490) PLATELET COUNT (BEAKER) (test kgfx=512) 422 K/CU MM 150-450 MEAN PLATELET VOLUME (BEAKER) (test bhvb=833) 10.4 fL 9.4-12.3 NUCLEATED RED BLOOD CELLS (BEAKER) (test 0 /100 WBC 0-0 eltb=642) BASIC METABOLIC [id number] 05:52:00 Test Item Value Reference Range Comments SODIUM (BEAKER) (test 134 meq/L 136-145 ediq=352) POTASSIUM (BEAKER) (test 4.3 meq/L 3.5-5.1 mlop=060) CHLORIDE (BEAKER) (test 100 meq/L 98-107 pvjn=270) CO2 (BEAKER) (test 25 meq/L 22-29 rjfe=983) BLOOD UREA NITROGEN 21 mg/dL 7-21 (BEAKER) (test rnau=243) CREATININE (BEAKER) (test 0.74 mg/dL 0.57-1.25 usbx=525) GLUCOSE RANDOM (BEAKER) 176 mg/dL 70-105 (test bebe=062) CALCIUM (BEAKER) (test 9.2 mg/dL 8.4-10.2 jaln=242) EGFR (BEAKER) (test 76 mL/min/1.73 sq m ESTIMATED GFR IS NOT rfcg=2181) ACCURATE CREATININE CLEARANCE IN PREDICTING GLOMERULAR FILTRATION RATE. ESTIMATED GFR IS NOT APPLICABLE FOR DIALYSIS PATIENTS. CBC (HEMOGRAM ONLY)2018-07-08 05:16:00 Test Item Value Reference Range Comments WHITE BLOOD CELL COUNT (BEAKER) (test gcah=862) 5.7 K/ L 3.5-10.5 RED BLOOD CELL COUNT (BEAKER) (test xlgi=185) 3.26 M/ L 3.93-5.22 HEMOGLOBIN (BEAKER) (test xaro=224) 10.1 GM/DL 11.2-15.7 HEMATOCRIT (BEAKER) (test ytzz=248) 31.5 % 34.1-44.9 MEAN CORPUSCULAR VOLUME (BEAKER) (test yttw=842) 96.6 fL 79.4-94.8 MEAN CORPUSCULAR HEMOGLOBIN (BEAKER) (test 31.0 pg 25.6-32.2 pbdr=850) MEAN CORPUSCULAR HEMOGLOBIN CONC (BEAKER) (test 32.1 GM/DL 32.2-35.5 eoas=011) RED CELL DISTRIBUTION WIDTH (BEAKER) (test 14.7 % 11.7-14.4 spys=224) PLATELET COUNT (BEAKER) (test emut=356) 386 K/CU MM 150-450 MEAN PLATELET VOLUME (BEAKER) (test qpzj=039) 10.7 fL 9.4-12.3 NUCLEATED RED BLOOD CELLS (BEAKER) (test 0 /100 WBC 0-0 csug=286) BLOOD GAS, [id number] 18:38:00 Test Item Value Reference Range Comments PH ARTERIAL (BEAKER) (test qchb=626) 7.49 7.35-7.45 PCO2 ARTERIAL (BEAKER) (test rhki=723) 37 mmHg 35-45 PO2 ARTERIAL (BEAKER) (test tqjs=261) 76 mmHg 80-90 O2 SATURATION ARTERIAL (BEAKER) (test xpij=573) 95.8 % 96.0-97.0 HCO3 ARTERIAL (BEAKER) (test zrgz=134) 27 mmol/L 21-29 BASE EXCESS ARTERIAL (BEAKER) (test mjrj=074) 3.8 mmol/L -2.0-3.0 PATIENT TEMPERATURE (BEAKER) (test krnz=1433) 37.7 C FIO2 (BEAKER) (test shey=7187) 28.0 % B-TYPE NATRIURETIC FACTOR (BNP)2018-07-06 18:34:00 Test Item Value Reference Range Comments B-TYPE NATRIURETIC PEPTIDE (BEAKER) (test 248 pg/mL 0-100 yvbp=114) RAD, CHEST, 1 VIEW, NON [id number] 17:51:00Reason for exam:->SOBShould this be performed at the bedside?->YesFINAL REPORT History: Shortness of breath. Comparison: 07/02/2018 Findings: Asingle view of the chest is submitted. The patient is rotated to the right. The cardiac silhouette is within normal limits for size. There is atherosclerotic calcification of the elongated aorta. Blunting of the right costophrenic sulcus is similar to previous and suggests a small effusion versus pleural thickening. Adjacent opacity may reflect atelectasis but pneumonitis should be excluded clinically. There is no pneumothorax, evidence of overt pulmonary edema or acute bony abnormality. Signed: Liane Arora MDReport Verified Date/ Time: 07/06/2018 17:51:18 Reading Location: [address] Reading Room BASI METABOLIC [id number] 06:27:00 Test Item Value Reference Range Comments SODIUM (BEAKER) (test 133 meq/L 136-145 aayd=711) POTASSIUM (BEAKER) (test 3.4 meq/L 3.5-5.1 Specimen slightly khei=722) hemolyzed CHLORIDE (BEAKER) (test 97 meq/L 98-107 rhkt=496) CO2 (BEAKER) (test 25 meq/L 22-29 ilfa=059) BLOOD UREA NITROGEN 14 mg/dL 7-21 (BEAKER) (test fhln=127) CREATININE (BEAKER) (test 0.70 mg/dL 0.57-1.25 Specimen slightly xotr=085) hemolyzed GLUCOSE RANDOM (BEAKER) 100 mg/dL 70-105 (test ghxz=716) CALCIUM (BEAKER) (test 9.0 mg/dL 8.4-10.2 vzae=844) EGFR (BEAKER) (test 81 mL/min/1.73 sq m ESTIMATED GFR IS NOT pjyz=2872) ACCURATE CREATININE CLEARANCE IN PREDICTING GLOMERULAR FILTRATION RATE. ESTIMATED GFR IS NOT APPLICABLE FOR DIALYSIS PATIENTS. CBC W/PLT COUNT & AUTO [id number] 05:54:00 Test Item Value Reference Range Comments WHITE BLOOD CELL COUNT (BEAKER) (test aath=767) 6.9 K/ L 3.5-10.5 RED BLOOD CELL COUNT (BEAKER) (test phio=244) 3.18 M/ L 3.93-5.22 HEMOGLOBIN (BEAKER) (test lcje=366) 9.7 GM/DL 11.2-15.7 HEMATOCRIT (BEAKER) (test eltd=692) 30.2 % 34.1-44.9 MEAN CORPUSCULAR VOLUME (BEAKER) (test cdvt=063) 95.0 fL 79.4-94.8 MEAN CORPUSCULAR HEMOGLOBIN (BEAKER) (test 30.5 pg 25.6-32.2 zghi=195) MEAN CORPUSCULAR HEMOGLOBIN CONC (BEAKER) (test 32.1 GM/DL 32.2-35.5 acxq=797) RED CELL DISTRIBUTION WIDTH (BEAKER) (test 14.3 % 11.7-14.4 nlcv=169) PLATELET COUNT (BEAKER) (test daga=173) 327 K/CU MM 150-450 MEAN PLATELET VOLUME (BEAKER) (test tacw=742) 10.5 fL 9.4-12.3 NUCLEATED RED BLOOD CELLS (BEAKER) (test 0 /100 WBC 0-0 zgja=284) NEUTROPHILS RELATIVE PERCENT (BEAKER) (test 74 % zezq=584) LYMPHOCYTES RELATIVE PERCENT (BEAKER) (test 15 % hrem=212) MONOCYTES RELATIVE PERCENT (BEAKER) (test 8 % swgt=724) EOSINOPHILS RELATIVE PERCENT (BEAKER) (test 2 % rxyu=794) BASOPHILS RELATIVE PERCENT (BEAKER) (test 1 % jmtx=655) NEUTROPHILS ABSOLUTE COUNT (BEAKER) (test 5.06 K/ L 1.56-6.13 rmub=517) LYMPHOCYTES ABSOLUTE COUNT (BEAKER) (test 1.04 K/ L 1.18-3.74 mztk=458) MONOCYTES ABSOLUTE COUNT (BEAKER) (test 0.58 K/ L 0.24-0.36 crfx=380) EOSINOPHILS ABSOLUTE COUNT (BEAKER) (test 0.12 K/ L 0.04-0.36 jncg=064) BASOPHILS ABSOLUTE COUNT (BEAKER) (test 0.04 K/ L 0.01-0.08 vgeo=658) IMMATURE GRANULOCYTES-RELATIVE PERCENT (BEAKER) 0 % 0-1 (test ewby=2163) [id number] 09:53:00 Test Item Value Reference Range Comments PROCALCITONIN (BEAKER) (test whkn=8179) 0.12 ng/mL <0.05 SEPSIS RISK (ng/mL)Low: 0.05-0.50Intermediate: 0.51-2.00High: & gt;=2.01CBC W/PLT COUNT & AUTO [id number] 06:33:00 Test Item Value Reference Range Comments WHITE BLOOD CELL COUNT (BEAKER) (test prbh=738) 5.5 K/ L 3.5-10.5 RED BLOOD CELL COUNT (BEAKER) (test dpgy=048) 2.85 M/ L 3.93-5.22 HEMOGLOBIN (BEAKER) (test cjss=182) 8.7 GM/DL 11.2-15.7 HEMATOCRIT (BEAKER) (test xfqz=906) 26.8 % 34.1-44.9 MEAN CORPUSCULAR VOLUME (BEAKER) (test nsyt=046) 94.0 fL 79.4-94.8 MEAN CORPUSCULAR HEMOGLOBIN (BEAKER) (test 30.5 pg 25.6-32.2 jdie=490) MEAN CORPUSCULAR HEMOGLOBIN CONC (BEAKER) (test 32.5 GM/DL 32.2-35.5 vjet=102) RED CELL DISTRIBUTION WIDTH (BEAKER) (test 14.5 % 11.7-14.4 xmvb=425) PLATELET COUNT (BEAKER) (test zyba=976) 292 K/CU MM 150-450 MEAN PLATELET VOLUME (BEAKER) (test avwz=110) 10.6 fL 9.4-12.3 NUCLEATED RED BLOOD CELLS (BEAKER) (test 0 /100 WBC 0-0 dzhx=188) NEUTROPHILS RELATIVE PERCENT (BEAKER) (test 72 % sazx=621) LYMPHOCYTES RELATIVE PERCENT (BEAKER) (test 15 % xypz=129) MONOCYTES RELATIVE PERCENT (BEAKER) (test 10 % grwp=958) EOSINOPHILS RELATIVE PERCENT (BEAKER) (test 2 % taxr=604) BASOPHILS RELATIVE PERCENT (BEAKER) (test 1 % hlis=302) NEUTROPHILS ABSOLUTE COUNT (BEAKER) (test 3.96 K/ L 1.56-6.13 kksi=473) LYMPHOCYTES ABSOLUTE COUNT (BEAKER) (test 0.80 K/ L 1.18-3.74 ztrd=734) MONOCYTES ABSOLUTE COUNT (BEAKER) (test 0.53 K/ L 0.24-0.36 jzxe=773) EOSINOPHILS ABSOLUTE COUNT (BEAKER) (test 0.13 K/ L 0.04-0.36 cutq=070) BASOPHILS ABSOLUTE COUNT (BEAKER) (test 0.04 K/ L 0.01-0.08 cxue=404) IMMATURE GRANULOCYTES-RELATIVE PERCENT (BEAKER) 0 % 0-1 (test mfto=5111) CBC W/PLT COUNT & AUTO [id number] 04:59:00 Test Item Value Reference Range Comments WHITE BLOOD CELL COUNT (BEAKER) (test frbr=204) 6.7 K/ L 3.5-10.5 RED BLOOD CELL COUNT (BEAKER) (test hlti=833) 3.04 M/ L 3.93-5.22 HEMOGLOBIN (BEAKER) (test wbwu=168) 9.3 GM/DL 11.2-15.7 HEMATOCRIT (BEAKER) (test sryg=292) 29.1 % 34.1-44.9 MEAN CORPUSCULAR VOLUME (BEAKER) (test wjcm=947) 95.7 fL 79.4-94.8 MEAN CORPUSCULAR HEMOGLOBIN (BEAKER) (test 30.6 pg 25.6-32.2 onmr=140) MEAN CORPUSCULAR HEMOGLOBIN CONC (BEAKER) (test 32.0 GM/DL 32.2-35.5 lylu=135) RED CELL DISTRIBUTION WIDTH (BEAKER) (test 14.8 % 11.7-14.4 zwjt=148) PLATELET COUNT (BEAKER) (test mqvk=603) 296 K/CU MM 150-450 MEAN PLATELET VOLUME (BEAKER) (test wbcp=278) 10.6 fL 9.4-12.3 NUCLEATED RED BLOOD CELLS (BEAKER) (test 0 /100 WBC 0-0 nwji=782) NEUTROPHILS RELATIVE PERCENT (BEAKER) (test 67 % ohxu=780) LYMPHOCYTES RELATIVE PERCENT (BEAKER) (test 19 % fmiv=395) MONOCYTES RELATIVE PERCENT (BEAKER) (test 10 % dsbe=368) EOSINOPHILS RELATIVE PERCENT (BEAKER) (test 3 % oslk=575) BASOPHILS RELATIVE PERCENT (BEAKER) (test 1 % zxau=842) NEUTROPHILS ABSOLUTE COUNT (BEAKER) (test 4.49 K/ L 1.56-6.13 hxyn=679) LYMPHOCYTES ABSOLUTE COUNT (BEAKER) (test 1.27 K/ L 1.18-3.74 vlqj=395) MONOCYTES ABSOLUTE COUNT (BEAKER) (test 0.66 K/ L 0.24-0.36 ukwz=785) EOSINOPHILS ABSOLUTE COUNT (BEAKER) (test 0.22 K/ L 0.04-0.36 htpm=102) BASOPHILS ABSOLUTE COUNT (BEAKER) (test 0.04 K/ L 0.01-0.08 xbui=248) IMMATURE GRANULOCYTES-RELATIVE PERCENT (BEAKER) 0 % 0-1 (test vujg=3600) B-TYPE NATRIURETIC FACTOR (BNP)2018-07-03 12:21:00 Test Item Value Reference Range Comments B-TYPE NATRIURETIC PEPTIDE (BEAKER) (test 385 pg/mL 0-100 dkgi=165) BASIC METABOLIC [id number] 03:44:00 Test Item Value Reference Range Comments SODIUM (BEAKER) (test 133 meq/L 136-145 bnwa=119) POTASSIUM (BEAKER) (test 4.1 meq/L 3.5-5.1 bvzq=313) CHLORIDE (BEAKER) (test 103 meq/L 98-107 sfsg=057) CO2 (BEAKER) (test 22 meq/L 22-29 hbbt=046) BLOOD UREA NITROGEN 12 mg/dL 7-21 (BEAKER) (test pylw=285) CREATININE (BEAKER) (test 0.62 mg/dL 0.57-1.25 rpls=780) GLUCOSE RANDOM (BEAKER) 102 mg/dL 70-105 (test krgz=869) CALCIUM (BEAKER) (test 8.4 mg/dL 8.4-10.2 ysqg=435) EGFR (BEAKER) (test 93 mL/min/1.73 sq m ESTIMATED GFR IS NOT szeo=9603) ACCURATE CREATININE CLEARANCE IN PREDICTING GLOMERULAR FILTRATION RATE. ESTIMATED GFR IS NOT APPLICABLE FOR DIALYSIS PATIENTS. LACTIC ACID, [id number] 03:39:00 Test Item Value Reference Range Comments LACTATE BLOOD VENOUS (2) (BEAKER) (test 0.7 mmol/L 0.5-2.2 awzu=3370) CBC W/PLT COUNT & AUTO [id number] 03:22:00 Test Item Value Reference Range Comments WHITE BLOOD CELL COUNT (BEAKER) (test evfz=549) 7.2 K/ L 3.5-10.5 RED BLOOD CELL COUNT (BEAKER) (test oyes=147) 2.87 M/ L 3.93-5.22 HEMOGLOBIN (BEAKER) (test swhu=869) 8.8 GM/DL 11.2-15.7 HEMATOCRIT (BEAKER) (test symy=454) 27.0 % 34.1-44.9 MEAN CORPUSCULAR VOLUME (BEAKER) (test nuda=281) 94.1 fL 79.4-94.8 MEAN CORPUSCULAR HEMOGLOBIN (BEAKER) (test 30.7 pg 25.6-32.2 bvdy=334) MEAN CORPUSCULAR HEMOGLOBIN CONC (BEAKER) (test 32.6 GM/DL 32.2-35.5 siub=904) RED CELL DISTRIBUTION WIDTH (BEAKER) (test 14.6 % 11.7-14.4 hehl=633) PLATELET COUNT (BEAKER) (test otxu=946) 224 K/CU MM 150-450 MEAN PLATELET VOLUME (BEAKER) (test swjr=283) 10.3 fL 9.4-12.3 NUCLEATED RED BLOOD CELLS (BEAKER) (test 0 /100 WBC 0-0 ynzb=018) NEUTROPHILS RELATIVE PERCENT (BEAKER) (test 76 % mynt=304) LYMPHOCYTES RELATIVE PERCENT (BEAKER) (test 13 % gbzj=596) MONOCYTES RELATIVE PERCENT (BEAKER) (test 9 % rqfj=246) EOSINOPHILS RELATIVE PERCENT (BEAKER) (test 1 % gpwt=281) BASOPHILS RELATIVE PERCENT (BEAKER) (test 0 % dmka=346) NEUTROPHILS ABSOLUTE COUNT (BEAKER) (test 5.45 K/ L 1.56-6.13 hnqk=568) LYMPHOCYTES ABSOLUTE COUNT (BEAKER) (test 0.91 K/ L 1.18-3.74 msxf=956) MONOCYTES ABSOLUTE COUNT (BEAKER) (test 0.64 K/ L 0.24-0.36 civj=700) EOSINOPHILS ABSOLUTE COUNT (BEAKER) (test 0.08 K/ L 0.04-0.36 gldk=663) BASOPHILS ABSOLUTE COUNT (BEAKER) (test 0.03 K/ L 0.01-0.08 ytbu=264) IMMATURE GRANULOCYTES-RELATIVE PERCENT (BEAKER) 1 % 0-1 (test uyhw=8390) RAD, CHEST, 1 VIEW, NON [id number] 00:41:00Reason for exam:->acute hypoxiaShould this be performed at the bedside?->YesFINAL REPORT History: Hypoxia. Comparison: Same date at 1300 hours Findings:A single view of the chest is submitted. The examination is limited by low lung volumes and rotationto the left. The cardiac silhouette is within normal limits for size. There is atherosclerotic calcification of the aorta. Central pulmonary vascular prominence and bilateral perihilar interstitial opacities suggest pulmonary edema. There is a small right pleural effusion. Hazy opacity in the right lung base may reflect a combination of atelectasis and edema but pneumonitis should be excluded clinically. There is no pneumothorax or acute bony abnormality. Signed: Liane Arora MDReport Verified Date/Time: 2018 00:41:40 Reading Location: [address] Reading Room POCT- LACTIC ACID, [id number] 20:45:00 Test Item Value Reference Range Comments POC-LACTIC ACID, ARTERIAL 2.1 mmol/L 0.4-1.3 TESTED AT [address] ([place]) (test jnzr=9610) [facility] [address] POCT-BLOOD GASES, [id number] 20:45:00 Test Item Value Reference Range Comments TEMP, CELSIUS-POC (BEAKER) 37.0 (test sxji=5967) FIO2-POC (BEAKER) (test TESTED AT [address] suyt=5265) [place] [id number] PH, ARTERIAL-POC (BEAKER) 7.371 7.350-7.450 (test fjnn=9524) PCO2, ARTERIAL-POC (BEAKER) 37.7 mm Hg 35.0-45.0 (test ppck=5331) PO2, ARTERIAL-POC (BEAKER) 78.0 mm Hg 80.0-90.0 (test qqli=6590) SO2, ARTERIAL-POC (BEAKER) 95.0 % 96.0-97.0 (test fbuv=1410) HCO3, ARTERIAL-POC (BEAKER) 21.9 meq/L 21.0-29.0 (test nbfm=5034) BASE EXCESS, ARTERIAL-POC -3.0 meq/L -2.0-3.0 (BEAKER) (test kkrf=2082) [id number] 20:45:00 Test Item Value Reference Range Comments POC-SODIUM (BEAKER) (test 133 meq/L 135-148 TESTED AT [address] eqzl=1015) [place] [address] [id number] 20:45:00 Test Item Value Reference Range Comments POC-POTASSIUM (BEAKER) (test 3.9 meq/L 3.6-5.5 TESTED AT [address] ckwc=1552) [place] [address] [id number] 20:45:00 Test Item Value Reference Range Comments POC-GLUCOSE (BEAKER) (test 142 mg/dL 70-110 TESTED AT [address] lriz=6966) [place] [address] POCT-CALCIUM [id number] 20:45:00 Test Item Value Reference Range Comments POC-CALCIUM IONIZED (BEAKER) 1.18 mmol/L 1.12-1.27 TESTED AT [address] (test vllp=2956) [place] [address] [id number] 20:45:00 Test Item Value Reference Range Comments POC-HEMATOCRIT (BEAKER) (test 28 % 36-45 TESTED AT [address] piti=3714) [place] [address] [id number] 20:45:00 Test Item Value Reference Range Comments POC-HEMOGLOBIN (BEAKER) 9.5 g/dL 12.0-15.0 TESTED AT [address] (test suer=8317) [place] [address]TESTED AT [place] [address] RESPIRATORY PANEL [id number] 17:58:00 Test Item Value Reference Range Comments HUMAN METAPNEUMOVIRUS (BEAKER) (test Not detected Not detected, Equivocal qadj=6459) RHINOVIRUS (BEAKER) (test kdiq=0240) Not detected Not detected, Equivocal INFLUENZA A (BEAKER) (test mkfl=1984) Not detected Not detected, Equivocal INFLUENZA A (NO SUBTYPE) (test Not detected, Equivocal gsea=5224) INFLUENZA A SUBTYPE H1 (BEAKER) (test Not detected, Equivocal ybxw=3576) INFLUENZA A SUBTYPE H3 (BEAKER) (test Not detected, Equivocal yusj=4744) INFLUENZA A SUBTYPE H1-2009 (BEAKER) Not detected, Equivocal (test vscv=6106) INFLUENZA B (BEAKER) (test anwp=4056) Not detected Not detected, Equivocal RESPIRATORY SYNCYTIAL VIRUS (BEAKER) Not detected Not detected, Equivocal (test usdj=2499) PARAINFLUENZA VIRUS 1 (BEAKER) (test Not detected Not detected, Equivocal adpl=7337) PARAINFLUENZA VIRUS 2 (BEAKER) (test Not detected Not detected, Equivocal cqvj=1561) PARAINFLUENZA VIRUS 3 (BEAKER) (test Not detected Not detected, Equivocal ozhq=0496) PARAINFLUENZA VIRUS 4 (BEAKER) (test Not detected Not detected, Equivocal cffw=2729) ADENOVIRUS (BEAKER) (test oiip=3927) Not detected Not detected, Equivocal CORONAVIRUS 229E (BEAKER) (test Not detected Not detected, Equivocal cppo=6960) CORONAVIRUS HKU1 (BEAKER) (test Not detected Not detected, Equivocal uhlj=9516) CORONAVIRUS NL63 (BEAKER) (test Not detected Not detected, Equivocal rzoj=1915) CORONAVIRUS OC43 (BEAKER) (test Not detected Not detected, Equivocal revk=6636) BORDETELLA PERTUSSIS (BEAKER) (test Not detected Not detected, Equivocal wkcv=3136) CHLAMYDOPHILA PNEUMONIAE (BEAKER) (test Not detected Not detected, Equivocal lpzc=7615) MYCOPLASMA PNEUMONIAE (BEAKER) (test Not detected Not detected, Equivocal yewl=8522) Other viruses and bacteria not targeted by this PCR panel cannot be excluded; therefore clinical correlation and follow up of serology, culture results, and other molecular studies is required. The results are not intended to be used as the sole means for clinical diagnosis or patient management decisions. This sample was tested at the [facility] using the [employer] Respiratory Panel. It is FDA cleared and has been verified and approved by the [facility] for clinical use on nasal swab specimens. It is not FDA-cleared for use on bronchial wash/lavage samples. However, for this sample type, validation was performed and test characteristics were determined and approved, by [facility] for clinical use under the Clinical Laboratory Improvement Amendments (CLIA) of 1988 requirements. Therefore, FDA clearance isnot required. This laboratory is CLIA-certified and [employer] ([employer])-accredited to perform high complexity testing.RAD, CHEST, 1 VIEW, NON [id number] 15:35:00Reason for exam:->feverShould this be performed at the bedside?->YesFINAL REPORT Portable chest. CLINICAL HISTORY: fever. COMPARISON STUDY: 2018. FINDINGS: The cardiac silhouette is enlarged. The pulmonary parenchyma demonstrates bibasilar atelectasis or consolidation with costophrenic angle blunting. No pneumothorax is seen. Degenerative changes are noted. IMPRESSION: Bibasilar atelectasis or consolidation with costophrenic angleblunting, slightly more pronounced on the right side than on previous. In the right clinical setting, a superimposed infection would be difficult to exclude. Clinical correlation and short term imagingfollow-up could be made to exclude other etiologies. Signed: Zen Aguilar MDReport Verified Date/Time: 07/02/2018 15:35:00 Reading Location: [address] Consult Reading Room HEMOGLOBIN AND [id number] 14:58 :00 Test Item Value Reference Range Comments HEMOGLOBIN (BEAKER) (test jvap=353) 8.9 GM/DL 11.2-15.7 HEMATOCRIT (BEAKER) (test tnum=717) 26.5 % 34.1-44.9 RAPID INFLUENZA A&B [id number] 11:44:00 Test Item Value Reference Range Comments RAPID INFLUENZA A AG (BEAKER) (test Negative Negative, Inconclusive dioq=3028) RAPID INFLUENZA B AG (BEAKER) (test Negative Negative, Inconclusive rqyp=3955) URINALYSIS W/ REFLEX URINE [id number] 11:38:00 Test Item Value Reference Range Comments COLOR (BEAKER) (test syet=370) Yellow CLARITY (BEAKER) (test bgmu=456) Clear SPECIFIC GRAVITY UA (BEAKER) (test blye=474) 1.016 1.001-1.035 PH UA (BEAKER) (test flzk=625) 6.0 5.0-8.0 PROTEIN UA (BEAKER) (test uupe=586) Negative Negative GLUCOSE UA (BEAKER) (test dgfn=068) Negative Negative KETONES UA (BEAKER) (test eulu=710) Negative Negative BILIRUBIN UA (BEAKER) (test mrzb=784) Negative Negative BLOOD UA (BEAKER) (test radq=510) Negative Negative NITRITE UA (BEAKER) (test dqvv=580) Negative Negative LEUKOCYTE ESTERASE UA (BEAKER) (test rmkq=901) Moderate Negative UROBILINOGEN UA (BEAKER) (test eals=257) 0.2 mg/dL 0.2-1.0 RBC UA (BEAKER) (test uefs=244) 1 /HPF WBC UA (BEAKER) (test yzal=720) 13 /HPF MUCUS (BEAKER) (test wabx=9229) Occasional SQUAMOUS EPITHELIAL (BEAKER) (test fyoo=223) 1 /HPF SOURCE(BEAKER) (test jxci=5322) BASIC METABOLIC [id number] 06:10:00 Test Item Value Reference Range Comments SODIUM (BEAKER) (test 133 meq/L 136-145 iuau=659) POTASSIUM (BEAKER) (test 4.2 meq/L 3.5-5.1 mxvx=784) CHLORIDE (BEAKER) (test 104 meq/L 98-107 cnyn=570) CO2 (BEAKER) (test 23 meq/L 22-29 dtdp=035) BLOOD UREA NITROGEN 11 mg/dL 7-21 (BEAKER) (test mjcz=013) CREATININE (BEAKER) (test 0.63 mg/dL 0.57-1.25 xqkw=748) GLUCOSE RANDOM (BEAKER) 94 mg/dL 70-105 (test pvib=681) CALCIUM (BEAKER) (test 8.5 mg/dL 8.4-10.2 jckb=764) EGFR (BEAKER) (test 91 mL/min/1.73 sq m ESTIMATED GFR IS NOT ngql=3188) ACCURATE CREATININE CLEARANCE IN PREDICTING GLOMERULAR FILTRATION RATE. ESTIMATED GFR IS NOT APPLICABLE FOR DIALYSIS PATIENTS. CBC W/PLT COUNT & AUTO [id number] 05:38:00 Test Item Value Reference Range Comments WHITE BLOOD CELL COUNT (BEAKER) (test kaxm=015) 7.0 K/ L 3.5-10.5 RED BLOOD CELL COUNT (BEAKER) (test xfea=471) 3.18 M/ L 3.93-5.22 HEMOGLOBIN (BEAKER) (test mtbf=693) 9.6 GM/DL 11.2-15.7 HEMATOCRIT (BEAKER) (test qpef=739) 29.8 % 34.1-44.9 MEAN CORPUSCULAR VOLUME (BEAKER) (test gjhk=808) 93.7 fL 79.4-94.8 MEAN CORPUSCULAR HEMOGLOBIN (BEAKER) (test 30.2 pg 25.6-32.2 sxnn=688) MEAN CORPUSCULAR HEMOGLOBIN CONC (BEAKER) (test 32.2 GM/DL 32.2-35.5 tlnb=864) RED CELL DISTRIBUTION WIDTH (BEAKER) (test 14.7 % 11.7-14.4 szmx=814) PLATELET COUNT (BEAKER) (test rljd=717) 215 K/CU MM 150-450 MEAN PLATELET VOLUME (BEAKER) (test brwo=802) 10.3 fL 9.4-12.3 NUCLEATED RED BLOOD CELLS (BEAKER) (test 0 /100 WBC 0-0 qvxu=808) NEUTROPHILS RELATIVE PERCENT (BEAKER) (test 78 % wttr=056) LYMPHOCYTES RELATIVE PERCENT (BEAKER) (test 12 % hmzu=555) MONOCYTES RELATIVE PERCENT (BEAKER) (test 8 % fbxb=908) EOSINOPHILS RELATIVE PERCENT (BEAKER) (test 2 % ncmx=976) BASOPHILS RELATIVE PERCENT (BEAKER) (test 0 % hzkq=694) NEUTROPHILS ABSOLUTE COUNT (BEAKER) (test 5.43 K/ L 1.56-6.13 orsz=067) LYMPHOCYTES ABSOLUTE COUNT (BEAKER) (test 0.81 K/ L 1.18-3.74 nkmv=547) MONOCYTES ABSOLUTE COUNT (BEAKER) (test 0.56 K/ L 0.24-0.36 hfnb=567) EOSINOPHILS ABSOLUTE COUNT (BEAKER) (test 0.11 K/ L 0.04-0.36 kowr=525) BASOPHILS ABSOLUTE COUNT (BEAKER) (test 0.02 K/ L 0.01-0.08 bicj=566) IMMATURE GRANULOCYTES-RELATIVE PERCENT (BEAKER) 0 % 0-1 (test soxl=7626) HEMOGLOBIN AND [id number] 00:52:00 Test Item Value Reference Range Comments HEMOGLOBIN (BEAKER) (test qbpe=536) 9.3 GM/DL 11.2-15.7 HEMATOCRIT (BEAKER) (test noqb=461) 28.1 % 34.1-44.9 U/S, [id number] 11:14:00Reason for exam:->?stenosis of Aortic branches noted on ECHOFINAL REPORT Aorta Ultrasound: Clinical Indication: Stenosis of aortic branches noted on echo Comparison: No comparison at this institution Technique:Multiple transaxial and longitudinal images were obtained through the aorta using a five MHz transducer. Spectral and colorflow Doppler images were submitted for interpretation. 56 images were submitted for interpretation. Proximal aorta (at celiac axis): AP measurement 1.9 cm Transverse measurement 2.2 cm Mid aorta (at renalarteries): AP measurement 1.6 cm Transverse measurement 1.9 cm Distal aorta (above iliac bifurcation): AP measurement 1.6 cm Transverse measurement 1.6cm Right Common Iliac Artery: 1.0 cmLeft Common Iliac Artery: 0.9 cm Aorta Color Doppler: Within normal limitsArterial Waveform: NormalPeriaortic Fluid: NegativeAscites: Negative Impression:There no evidence of an aortic aneurysm. There no evidence ofa common iliac artery aneurysm. The origins of the celiac axis, superior mesenteric artery and inferior mesenteric artery are not adequately evaluated. If a hemodynamically significant stenosis is suspected correlation with a CTA or angiogram is recommended if clinically appropriate. Signed: Keisha Lucero MDReport Verified Date/Time: 07/01/2018 11:14:28 Reading Location: [address] Ultrasound Reading Room HEMOGLOBIN AND [id number] 10:42:00 Test Item Value Reference Range Comments HEMOGLOBIN (BEAKER) (test tdsd=858) 7.4 GM/DL 11.2-15.7 HEMATOCRIT (BEAKER) (test lxpn=722) 22.7 % 34.1-44.9 HEMOGLOBIN AND [id number] 22:49:00 Test Item Value Reference Range Comments HEMOGLOBIN (BEAKER) (test qvjz=515) 7.2 GM/DL 11.2-15.7 HEMATOCRIT (BEAKER) (test foby=463) 23.0 % 34.1-44.9 HEMOGLOBIN AND [id number] 11:52:00 Test Item Value Reference Range Comments HEMOGLOBIN (BEAKER) (test tgwv=838) 8.4 GM/DL 11.2-15.7 HEMATOCRIT (BEAKER) (test tluf=563) 28.5 % 34.1-44.9 BASIC METABOLIC [id number] 05:57:00 Test Item Value Reference Range Comments SODIUM (BEAKER) (test 136 meq/L 136-145 pdaf=518) POTASSIUM (BEAKER) (test 3.9 meq/L 3.5-5.1 cohw=344) CHLORIDE (BEAKER) (test 105 meq/L 98-107 qtvy=993) CO2 (BEAKER) (test 25 meq/L 22-29 eprv=935) BLOOD UREA NITROGEN 15 mg/dL 7-21 (BEAKER) (test pxaa=075) CREATININE (BEAKER) (test 0.73 mg/dL 0.57-1.25 hsbw=029) GLUCOSE RANDOM (BEAKER) 107 mg/dL 70-105 (test qmvi=314) CALCIUM (BEAKER) (test 8.2 mg/dL 8.4-10.2 apbi=489) EGFR (BEAKER) (test 77 mL/min/1.73 sq m ESTIMATED GFR IS NOT ezjx=3014) ACCURATE CREATININE CLEARANCE IN PREDICTING GLOMERULAR FILTRATION RATE. ESTIMATED GFR IS NOT APPLICABLE FOR DIALYSIS PATIENTS. CBC (HEMOGRAM ONLY)2018-06-30 05:18:00 Test Item Value Reference Range Comments WHITE BLOOD CELL COUNT (BEAKER) (test lqeq=695) 5.6 K/ L 3.5-10.5 RED BLOOD CELL COUNT (BEAKER) (test nrvi=286) 2.62 M/ L 3.93-5.22 HEMOGLOBIN (BEAKER) (test gqez=596) 8.1 GM/DL 11.2-15.7 HEMATOCRIT (BEAKER) (test whjv=887) 25.0 % 34.1-44.9 MEAN CORPUSCULAR VOLUME (BEAKER) (test xeno=229) 95.4 fL 79.4-94.8 MEAN CORPUSCULAR HEMOGLOBIN (BEAKER) (test 30.9 pg 25.6-32.2 nkri=090) MEAN CORPUSCULAR HEMOGLOBIN CONC (BEAKER) (test 32.4 GM/DL 32.2-35.5 dqhk=781) RED CELL DISTRIBUTION WIDTH (BEAKER) (test 14.8 % 11.7-14.4 qxoo=288) PLATELET COUNT (BEAKER) (test cdzu=148) 208 K/CU MM 150-450 MEAN PLATELET VOLUME (BEAKER) (test jkdw=443) 10.4 fL 9.4-12.3 NUCLEATED RED BLOOD CELLS (BEAKER) (test 0 /100 WBC 0-0 kavp=160) [id number] 06:00:00 Test Item Value Reference Range Comments MAGNESIUM (BEAKER) (test pumu=099) 2.0 mg/dL 1.6-2.6 BASIC METABOLIC [id number] 06:00:00 Test Item Value Reference Range Comments SODIUM (BEAKER) (test 141 meq/L 136-145 bosn=673) POTASSIUM (BEAKER) (test 3.7 meq/L 3.5-5.1 hbvy=699) CHLORIDE (BEAKER) (test 110 meq/L 98-107 lgql=369) CO2 (BEAKER) (test 24 meq/L 22-29 qzrb=356) BLOOD UREA NITROGEN 8 mg/dL 7-21 (BEAKER) (test vyoq=270) CREATININE (BEAKER) (test 0.70 mg/dL 0.57-1.25 ezed=149) GLUCOSE RANDOM (BEAKER) 93 mg/dL 70-105 (test nrpe=233) CALCIUM (BEAKER) (test 8.5 mg/dL 8.4-10.2 puxy=176) EGFR (BEAKER) (test 81 mL/min/1.73 sq m ESTIMATED GFR IS NOT cjgt=9336) ACCURATE CREATININE CLEARANCE IN PREDICTING GLOMERULAR FILTRATION RATE. ESTIMATED GFR IS NOT APPLICABLE FOR DIALYSIS PATIENTS. CBC (HEMOGRAM ONLY)2018-06-29 05:27:00 Test Item Value Reference Range Comments WHITE BLOOD CELL COUNT (BEAKER) (test kbfw=370) 4.5 K/ L 3.5-10.5 RED BLOOD CELL COUNT (BEAKER) (test emxy=454) 3.09 M/ L 3.93-5.22 HEMOGLOBIN (BEAKER) (test sjjb=566) 9.4 GM/DL 11.2-15.7 HEMATOCRIT (BEAKER) (test zyhu=705) 28.8 % 34.1-44.9 MEAN CORPUSCULAR VOLUME (BEAKER) (test zkyq=124) 93.2 fL 79.4-94.8 MEAN CORPUSCULAR HEMOGLOBIN (BEAKER) (test 30.4 pg 25.6-32.2 bfhe=021) MEAN CORPUSCULAR HEMOGLOBIN CONC (BEAKER) (test 32.6 GM/DL 32.2-35.5 hzly=117) RED CELL DISTRIBUTION WIDTH (BEAKER) (test 14.9 % 11.7-14.4 sjmk=102) PLATELET COUNT (BEAKER) (test bwof=512) 205 K/CU MM 150-450 MEAN PLATELET VOLUME (BEAKER) (test xboz=689) 10.7 fL 9.4-12.3 NUCLEATED RED BLOOD CELLS (BEAKER) (test 0 /100 WBC 0-0 bcws=884) RAD, ABDOMEN/KUB, 1 VIEW [id number] 23:50:00Reason for exam:->evaluate for obstruction; acute onset abdominal pain with decreased flatusFINAL REPORT CLINICAL HISTORY: [place] pain with decreased flatus, concern for bowel obstruction COMPARISON: None. FINDINGS: A single supine view of the abdomen is submitted. Theabdominal bowel gas pattern is nonspecific but grossly unobstructed. There is gas and enteric contrast in normal caliber large intestine, which extends to the rectum. No focus of gas dilated small bowel is identified. There is no evidence of organomegaly or significant ascites. No abnormal calcification is noted. There is no acute bony abnormality. Signed: Liane Arora MDReport Verified Date/Time: 06/28/2018 23:50:09 Reading Location : [address] Reading Room Electronically signedby: LIANE ARORA M.D. on 06/28/2018 11:50 PMHEMOGLOBIN AND [id number] 13:24:00 Test Item Value Reference Range Comments HEMOGLOBIN (BEAKER) (test idpb=109) 9.6 GM/DL 11.2-15.7 HEMATOCRIT (BEAKER) (test uahn=545) 29.3 % 34.1-44.9 BASIC METABOLIC [id number] 05:37:00 Test Item Value Reference Range Comments SODIUM (BEAKER) (test 141 meq/L 136-145 rwaj=118) POTASSIUM (BEAKER) (test 4.0 meq/L 3.5-5.1 hbhp=342) CHLORIDE (BEAKER) (test 110 meq/L 98-107 fpvo=093) CO2 (BEAKER) (test 23 meq/L 22-29 upjt=269) BLOOD UREA NITROGEN 13 mg/dL 7-21 (BEAKER) (test bxta=726) CREATININE (BEAKER) (test 0.73 mg/dL 0.57-1.25 skmu=803) GLUCOSE RANDOM (BEAKER) 100 mg/dL 70-105 (test hwrt=607) CALCIUM (BEAKER) (test 8.4 mg/dL 8.4-10.2 irxr=517) EGFR (BEAKER) (test 77 mL/min/1.73 sq m ESTIMATED GFR IS NOT iebb=8627) ACCURATE CREATININE CLEARANCE IN PREDICTING GLOMERULAR FILTRATION RATE. ESTIMATED GFR IS NOT APPLICABLE FOR DIALYSIS PATIENTS. B-TYPE NATRIURETIC FACTOR (BNP)2018-06-28 04:57:00 Test Item Value Reference Range Comments B-TYPE NATRIURETIC PEPTIDE (BEAKER) (test 291 pg/mL 0-100 qqbm=098) [id number] 04:52:00 Test Item Value Reference Range Comments MAGNESIUM (BEAKER) (test mkrd=296) 2.3 mg/dL 1.6-2.6 CBC (HEMOGRAM ONLY)2018-06-28 04:37:00 Test Item Value Reference Range Comments WHITE BLOOD CELL COUNT 6.2 K/ L 3.5-10.5 (BEAKER) (test zbwd=797) RED BLOOD CELL COUNT (BEAKER) 3.36 M/ L 3.93-5.22 (test joup=282) HEMOGLOBIN (BEAKER) (test 10.2 GM/DL 11.2-15.7 nfim=115) HEMATOCRIT (BEAKER) (test 31.1 % 34.1-44.9 vnqq=387) MEAN CORPUSCULAR VOLUME 92.6 fL 79.4-94.8 Discordant MCV results (BEAKER) (test hovz=020) compared to previous results; clinical correlation required. MEAN CORPUSCULAR HEMOGLOBIN 30.4 pg 25.6-32.2 (BEAKER) (test ftrd=058) MEAN CORPUSCULAR HEMOGLOBIN 32.8 GM/DL 32.2-35.5 CONC (BEAKER) (test djbz=065) RED CELL DISTRIBUTION WIDTH 15.4 % 11.7-14.4 (BEAKER) (test ugav=311) PLATELET COUNT (BEAKER) (test 198 K/CU MM 150-450 nhbt=526) MEAN PLATELET VOLUME (BEAKER) 10.8 fL 9.4-12.3 (test gqdr=703) NUCLEATED RED BLOOD CELLS 0 /100 WBC 0-0 (BEAKER) (test kcox=699) HEMOGLOBIN AND [id number] 20:46:00 Test Item Value Reference Range Comments HEMOGLOBIN (BEAKER) (test cpit=734) 10.5 GM/DL 11.2-15.7 HEMATOCRIT (BEAKER) (test wkrc=882) 31.5 % 34.1-44.9 RAD, CHEST, 1 VIEW, NON [id number] 15:18:00Reason for exam:-> dyspneaShould this be performed at the bedside?->YesFINAL REPORT CLINICAL HISTORY: dyspnea TECHNIQUE: 1 view of the chest. COMPARISON: None IMPRESSION: There are no focal infiltrates or effusions. The cardiomediastinal silhouetteis magnified by technique. The osseous structures appear intact. Signed: Ashleigh Aburto MDReport Verified Date/Time: 06/27/2018 15 :18:20 Reading Location: [address] Consult Reading Room HEMOGLOBIN AND [id number] 14:44:00 Test Item Value Reference Range Comments HEMOGLOBIN (BEAKER) (test nqwp=895) 8.6 GM/DL 11.2-15.7 HEMATOCRIT (BEAKER) (test ccby=548) 26.5 % 34.1-44.9 POCT-LACTIC ACID, [id number] 13:49:00 Test Item Value Reference Range Comments POC-LACTIC ACID, VENOUS 0.7 mmol/L 0.9-1.7 TESTED AT [facility] [address] (BEAKER) (test dtqh=7161) [place] [address] [id number] 10:25:00 Test Item Value Reference Range Comments PROTIME (BEAKER) (test pxsp=457) 14.0 seconds 11.7-14.7 INR (BEAKER) (test arbo=405) 1.1 <=5.9 PARTIAL THROMBOPLASTIN TIME (BEAKER) (test 24.6 seconds 22.5-36.0 npqc=395) RECOMMENDED COUMADIN/WARFARIN INR THERAPY RANGESSTANDARD DOSE: 2.0 - 3.0 Includes: PROPHYLAXIS forvenous thrombosis, systemic embolization; TREATMENT for venous thrombosis and/or pulmonary embolus.HIGH RISK: Target INR is 2.5-3.5 for patients with mechanical heart valves.HEMOGLOBIN AND [id number] 09 :55:00 Test Item Value Reference Range Comments HEMOGLOBIN (BEAKER) (test ksdn=211) 7.1 GM/DL 11.2-15.7 HEMATOCRIT (BEAKER) (test jlvh=969) 22.4 % 34.1-44.9 CBC (HEMOGRAM ONLY)2018-06-27 06:28:00 Test Item Value Reference Range Comments WHITE BLOOD CELL COUNT (BEAKER) (test nktm=682) 6.2 K/ L 3.5-10.5 RED BLOOD CELL COUNT (BEAKER) (test ahze=227) 2.21 M/ L 3.93-5.22 HEMOGLOBIN (BEAKER) (test tbou=538) 6.7 GM/DL 11.2-15.7 HEMATOCRIT (BEAKER) (test abvo=264) 23.4 % 34.1-44.9 MEAN CORPUSCULAR VOLUME (BEAKER) (test ctah=243) 105.9 fL 79.4-94.8 MEAN CORPUSCULAR HEMOGLOBIN (BEAKER) (test 30.3 pg 25.6-32.2 shpu=014) MEAN CORPUSCULAR HEMOGLOBIN CONC (BEAKER) (test 28.6 GM/DL 32.2-35.5 rjaq=086) RED CELL DISTRIBUTION WIDTH (BEAKER) (test 14.1 % 11.7-14.4 urlf=340) PLATELET COUNT (BEAKER) (test jokg=754) 180 K/CU MM 150-450 MEAN PLATELET VOLUME (BEAKER) (test tgbz=270) 10.9 fL 9.4-12.3 NUCLEATED RED BLOOD CELLS (BEAKER) (test 0 /100 WBC 0-0 zwzp=397) BASIC METABOLIC [id number] 06:28:00 Test Item Value Reference Range Comments SODIUM (BEAKER) (test 137 meq/L 136-145 huxy=751) POTASSIUM (BEAKER) (test 4.3 meq/L 3.5-5.1 eqsc=568) CHLORIDE (BEAKER) (test 110 meq/L 98-107 msxu=309) CO2 (BEAKER) (test 20 meq/L 22-29 kixb=014) BLOOD UREA NITROGEN 31 mg/dL 7-21 (BEAKER) (test eazi=864) CREATININE (BEAKER) (test 0.72 mg/dL 0.57-1.25 vtud=310) GLUCOSE RANDOM (BEAKER) 130 mg/dL 70-105 (test dcdi=455) CALCIUM (BEAKER) (test 7.3 mg/dL 8.4-10.2 sokn=894) EGFR (BEAKER) (test 78 mL/min/1.73 sq m ESTIMATED GFR IS NOT vjdb=5402) ACCURATE CREATININE CLEARANCE IN PREDICTING GLOMERULAR FILTRATION RATE. ESTIMATED GFR IS NOT APPLICABLE FOR DIALYSIS PATIENTS. HEPATIC FUNCTION [id number] 06:28:00 Test Item Value Reference Range Comments TOTAL PROTEIN (BEAKER) (test muuu=732) 4.4 gm/dL 6.0-8.3 ALBUMIN (BEAKER) (test llbf=7980) 2.8 g/dL 3.5-5.0 BILIRUBIN TOTAL (BEAKER) (test crzs=888) 0.2 mg/dL 0.2-1.2 BILIRUBIN DIRECT (BEAKER) (test wwcn=804) 0.1 mg/dL 0.1-0.5 ALKALINE PHOSPHATASE (BEAKER) (test wcxj=101) 15 U/L 40-150 AST (SGOT) (BEAKER) (test sadx=887) 14 U/L 5-34 ALT (SGPT) (BEAKER) (test rwkq=833) 12 U/L 6-55 [id number] 06:27:00 Test Item Value Reference Range Comments MAGNESIUM (BEAKER) (test msta=000) 1.8 mg/dL 1.6-2.6
== END 2019-02-17 18:45 | disposition home or self-care (01) | DRG 310 ==
LOC: INTOOBSV 13:17 → 4TH 13:17 → OBSVTOIN 13:17
PROVIDERS: ADMIT Internal Medicine; ATTEND Internal Medicine
DX: I48.20 Chronic atrial fibrillation, unspecified (principal); J44.9 Chronic obstructive pulmonary disease, unspecified; I10 Essential (primary) hypertension; E78.5 Hyperlipidemia, unspecified; K57.90 Diverticulosis of intestine, part unspecified, without perforation or abscess without bleeding
CPT/HCPCS: 36415; 71046; 80048; 80053; 83735; 84443; 84484; 85025; 93005; 93306

== ENCOUNTER 2019-02-23 10:44 | Inpatient (IN) | payer OTHER, MEDICARE ==
--- OUTSIDE RECORDS SUMMARY | 2019-02-23 11:15 | XMS REPORT ---
:1940 Author Organization [facility]3 Michele Booth. [address] [place] [id number] Care Team Providers Name Role Phone CHITRA FRENCH Unavailable Unavailable Problems This patient has no known problems. Allergies, Adverse Reactions, Alerts This patient has no known allergies or adverse reactions. Medications This patient has no known medications. Results Test Description Test Time Test Comments Text Results Atomic Results Result Comments BLOOD CULTURE 2018-07-10 20:01:00 Test Item Value Reference Range Comments CULTURE (BEAKER) (test ngtl=5508) No growth in 5 days BLOOD [id number] 20:01:00 Test Item Value Reference Range Comments CULTURE (BEAKER) (test dakp=1396) No growth in 5 days BASIC METABOLIC [id number] 07:48:00 Test Item Value Reference Range Comments SODIUM (BEAKER) (test 134 meq/L 136-145 quid=369) POTASSIUM (BEAKER) (test 4.9 meq/L 3.5-5.1 hmjo=786) CHLORIDE (BEAKER) (test 101 meq/L 98-107 wztg=663) CO2 (BEAKER) (test 26 meq/L 22-29 hbpq=479) BLOOD UREA NITROGEN 27 mg/dL 7-21 (BEAKER) (test qrlx=406) CREATININE (BEAKER) (test 0.67 mg/dL 0.57-1.25 djxh=319) GLUCOSE RANDOM (BEAKER) 161 mg/dL 70-105 (test klkt=999) CALCIUM (BEAKER) (test 9.1 mg/dL 8.4-10.2 jrpu=668) EGFR (BEAKER) (test 85 mL/min/1.73 sq m ESTIMATED GFR IS NOT ugzp=4423) ACCURATE CREATININE CLEARANCE IN PREDICTING GLOMERULAR FILTRATION RATE. ESTIMATED GFR IS NOT APPLICABLE FOR DIALYSIS PATIENTS. CBC (HEMOGRAM ONLY)2018-07-09 06:36:00 Test Item Value Reference Range Comments WHITE BLOOD CELL COUNT (BEAKER) (test howq=995) 5.9 K/ L 3.5-10.5 RED BLOOD CELL COUNT (BEAKER) (test yzpn=554) 3.11 M/ L 3.93-5.22 HEMOGLOBIN (BEAKER) (test vhtq=127) 9.7 GM/DL 11.2-15.7 HEMATOCRIT (BEAKER) (test xpsf=046) 29.9 % 34.1-44.9 MEAN CORPUSCULAR VOLUME (BEAKER) (test dnmi=142) 96.1 fL 79.4-94.8 MEAN CORPUSCULAR HEMOGLOBIN (BEAKER) (test 31.2 pg 25.6-32.2 hhiq=717) MEAN CORPUSCULAR HEMOGLOBIN CONC (BEAKER) (test 32.4 GM/DL 32.2-35.5 htgn=109) RED CELL DISTRIBUTION WIDTH (BEAKER) (test 14.9 % 11.7-14.4 ieby=019) PLATELET COUNT (BEAKER) (test siff=460) 422 K/CU MM 150-450 MEAN PLATELET VOLUME (BEAKER) (test nrei=952) 10.4 fL 9.4-12.3 NUCLEATED RED BLOOD CELLS (BEAKER) (test 0 /100 WBC 0-0 borr=911) BASIC METABOLIC [id number] 05:52:00 Test Item Value Reference Range Comments SODIUM (BEAKER) (test 134 meq/L 136-145 xizm=430) POTASSIUM (BEAKER) (test 4.3 meq/L 3.5-5.1 rrgc=675) CHLORIDE (BEAKER) (test 100 meq/L 98-107 mhkz=492) CO2 (BEAKER) (test 25 meq/L 22-29 gapa=070) BLOOD UREA NITROGEN 21 mg/dL 7-21 (BEAKER) (test fzqj=755) CREATININE (BEAKER) (test 0.74 mg/dL 0.57-1.25 cvns=069) GLUCOSE RANDOM (BEAKER) 176 mg/dL 70-105 (test owwe=194) CALCIUM (BEAKER) (test 9.2 mg/dL 8.4-10.2 pspq=684) EGFR (BEAKER) (test 76 mL/min/1.73 sq m ESTIMATED GFR IS NOT ixgq=1616) ACCURATE CREATININE CLEARANCE IN PREDICTING GLOMERULAR FILTRATION RATE. ESTIMATED GFR IS NOT APPLICABLE FOR DIALYSIS PATIENTS. CBC (HEMOGRAM ONLY)2018-07-08 05:16:00 Test Item Value Reference Range Comments WHITE BLOOD CELL COUNT (BEAKER) (test anoa=018) 5.7 K/ L 3.5-10.5 RED BLOOD CELL COUNT (BEAKER) (test zhgh=459) 3.26 M/ L 3.93-5.22 HEMOGLOBIN (BEAKER) (test urcv=597) 10.1 GM/DL 11.2-15.7 HEMATOCRIT (BEAKER) (test hzfl=586) 31.5 % 34.1-44.9 MEAN CORPUSCULAR VOLUME (BEAKER) (test pyrt=978) 96.6 fL 79.4-94.8 MEAN CORPUSCULAR HEMOGLOBIN (BEAKER) (test 31.0 pg 25.6-32.2 bqtk=701) MEAN CORPUSCULAR HEMOGLOBIN CONC (BEAKER) (test 32.1 GM/DL 32.2-35.5 zlsj=619) RED CELL DISTRIBUTION WIDTH (BEAKER) (test 14.7 % 11.7-14.4 icvu=391) PLATELET COUNT (BEAKER) (test epws=645) 386 K/CU MM 150-450 MEAN PLATELET VOLUME (BEAKER) (test ndhp=514) 10.7 fL 9.4-12.3 NUCLEATED RED BLOOD CELLS (BEAKER) (test 0 /100 WBC 0-0 rxpz=912) BLOOD GAS, [id number] 18:38:00 Test Item Value Reference Range Comments PH ARTERIAL (BEAKER) (test wilf=561) 7.49 7.35-7.45 PCO2 ARTERIAL (BEAKER) (test bpvl=330) 37 mmHg 35-45 PO2 ARTERIAL (BEAKER) (test xngz=551) 76 mmHg 80-90 O2 SATURATION ARTERIAL (BEAKER) (test sbqn=615) 95.8 % 96.0-97.0 HCO3 ARTERIAL (BEAKER) (test tbwz=223) 27 mmol/L 21-29 BASE EXCESS ARTERIAL (BEAKER) (test hhla=167) 3.8 mmol/L -2.0-3.0 PATIENT TEMPERATURE (BEAKER) (test xusd=9982) 37.7 C FIO2 (BEAKER) (test qqzy=0747) 28.0 % B-TYPE NATRIURETIC FACTOR (BNP)2018-07-06 18:34:00 Test Item Value Reference Range Comments B-TYPE NATRIURETIC PEPTIDE (BEAKER) (test 248 pg/mL 0-100 vahd=532) RAD, CHEST, 1 VIEW, NON [id number] 17:51:00Reason for exam:->SOBShould this be performed at [...] Verified Date/ Time: 07/06/2018 17:51:18 Reading Location: [address] Reading Room [facility] METABOLIC [id number] 06:27:00 Test Item Value Reference Range Comments SODIUM (BEAKER) (test 133 meq/L 136-145 oazq=414) POTASSIUM (BEAKER) (test 3.4 meq/L 3.5-5.1 Specimen slightly rpki=194) hemolyzed CHLORIDE (BEAKER) (test 97 meq/L 98-107 atms=820) CO2 (BEAKER) (test 25 meq/L 22-29 dtmo=451) BLOOD UREA NITROGEN 14 mg/dL 7-21 (BEAKER) (test dypn=155) CREATININE (BEAKER) (test 0.70 mg/dL 0.57-1.25 Specimen slightly udoa=619) hemolyzed GLUCOSE RANDOM (BEAKER) 100 mg/dL 70-105 (test jsnz=376) CALCIUM (BEAKER) (test 9.0 mg/dL 8.4-10.2 aidr=856) EGFR (BEAKER) (test 81 mL/min/1.73 sq m ESTIMATED GFR IS NOT hotw=2637) ACCURATE CREATININE CLEARANCE IN PREDICTING GLOMERULAR FILTRATION RATE. ESTIMATED GFR IS NOT APPLICABLE FOR DIALYSIS PATIENTS. CBC W/PLT COUNT & AUTO [id number] 05:54:00 Test Item Value Reference Range Comments WHITE BLOOD CELL COUNT (BEAKER) (test cbdp=604) 6.9 K/ L 3.5-10.5 RED BLOOD CELL COUNT (BEAKER) (test zpfr=392) 3.18 M/ L 3.93-5.22 HEMOGLOBIN (BEAKER) (test vofi=998) 9.7 GM/DL 11.2-15.7 HEMATOCRIT (BEAKER) (test onxe=059) 30.2 % 34.1-44.9 MEAN CORPUSCULAR VOLUME (BEAKER) (test ualg=450) 95.0 fL 79.4-94.8 MEAN CORPUSCULAR HEMOGLOBIN (BEAKER) (test 30.5 pg 25.6-32.2 dnjy=934) MEAN CORPUSCULAR HEMOGLOBIN CONC (BEAKER) (test 32.1 GM/DL 32.2-35.5 rmed=549) RED CELL DISTRIBUTION WIDTH (BEAKER) (test 14.3 % 11.7-14.4 clhu=831) PLATELET COUNT (BEAKER) (test etvs=632) 327 K/CU MM 150-450 MEAN PLATELET VOLUME (BEAKER) (test vfrs=553) 10.5 fL 9.4-12.3 NUCLEATED RED BLOOD CELLS (BEAKER) (test 0 /100 WBC 0-0 uxiz=158) NEUTROPHILS RELATIVE PERCENT (BEAKER) (test 74 % cljv=226) LYMPHOCYTES RELATIVE PERCENT (BEAKER) (test 15 % xknv=707) MONOCYTES RELATIVE PERCENT (BEAKER) (test 8 % kicj=912) EOSINOPHILS RELATIVE PERCENT (BEAKER) (test 2 % wsma=364) BASOPHILS RELATIVE PERCENT (BEAKER) (test 1 % tdig=425) NEUTROPHILS ABSOLUTE COUNT (BEAKER) (test 5.06 K/ L 1.56-6.13 wowd=931) LYMPHOCYTES ABSOLUTE COUNT (BEAKER) (test 1.04 K/ L 1.18-3.74 mpsv=209) MONOCYTES ABSOLUTE COUNT (BEAKER) (test 0.58 K/ L 0.24-0.36 okca=951) EOSINOPHILS ABSOLUTE COUNT (BEAKER) (test 0.12 K/ L 0.04-0.36 ujzl=149) BASOPHILS ABSOLUTE COUNT (BEAKER) (test 0.04 K/ L 0.01-0.08 jkcv=004) IMMATURE GRANULOCYTES-RELATIVE PERCENT (BEAKER) 0 % 0-1 (test ctyw=4712) [id number] 09:53:00 Test Item Value Reference Range Comments PROCALCITONIN (BEAKER) (test tjca=9983) 0.12 ng/mL <0.05 SEPSIS RISK (ng/mL)Low: 0.05-0.50Intermediate: 0.51-2.00High: & gt;=2.01CBC W/PLT COUNT & AUTO [id number] 06:33:00 Test Item Value Reference Range Comments WHITE BLOOD CELL COUNT (BEAKER) (test vlvp=739) 5.5 K/ L 3.5-10.5 RED BLOOD CELL COUNT (BEAKER) (test rjzr=880) 2.85 M/ L 3.93-5.22 HEMOGLOBIN (BEAKER) (test tehn=989) 8.7 GM/DL 11.2-15.7 HEMATOCRIT (BEAKER) (test gjfc=479) 26.8 % 34.1-44.9 MEAN CORPUSCULAR VOLUME (BEAKER) (test emlo=410) 94.0 fL 79.4-94.8 MEAN CORPUSCULAR HEMOGLOBIN (BEAKER) (test 30.5 pg 25.6-32.2 dmqz=317) MEAN CORPUSCULAR HEMOGLOBIN CONC (BEAKER) (test 32.5 GM/DL 32.2-35.5 vvpo=800) RED CELL DISTRIBUTION WIDTH (BEAKER) (test 14.5 % 11.7-14.4 smpe=811) PLATELET COUNT (BEAKER) (test clac=473) 292 K/CU MM 150-450 MEAN PLATELET VOLUME (BEAKER) (test eoiq=139) 10.6 fL 9.4-12.3 NUCLEATED RED BLOOD CELLS (BEAKER) (test 0 /100 WBC 0-0 stoh=182) NEUTROPHILS RELATIVE PERCENT (BEAKER) (test 72 % tnzs=805) LYMPHOCYTES RELATIVE PERCENT (BEAKER) (test 15 % lfhk=303) MONOCYTES RELATIVE PERCENT (BEAKER) (test 10 % wmsz=708) EOSINOPHILS RELATIVE PERCENT (BEAKER) (test 2 % iehf=414) BASOPHILS RELATIVE PERCENT (BEAKER) (test 1 % ocyz=472) NEUTROPHILS ABSOLUTE COUNT (BEAKER) (test 3.96 K/ L 1.56-6.13 uzma=996) LYMPHOCYTES ABSOLUTE COUNT (BEAKER) (test 0.80 K/ L 1.18-3.74 oztp=305) MONOCYTES ABSOLUTE COUNT (BEAKER) (test 0.53 K/ L 0.24-0.36 dhwp=537) EOSINOPHILS ABSOLUTE COUNT (BEAKER) (test 0.13 K/ L 0.04-0.36 sekv=403) BASOPHILS ABSOLUTE COUNT (BEAKER) (test 0.04 K/ L 0.01-0.08 tucm=049) IMMATURE GRANULOCYTES-RELATIVE PERCENT (BEAKER) 0 % 0-1 (test izbk=9440) CBC W/PLT COUNT & AUTO [id number] 04:59:00 Test Item Value Reference Range Comments WHITE BLOOD CELL COUNT (BEAKER) (test hpie=245) 6.7 K/ L 3.5-10.5 RED BLOOD CELL COUNT (BEAKER) (test etdk=679) 3.04 M/ L 3.93-5.22 HEMOGLOBIN (BEAKER) (test asgt=999) 9.3 GM/DL 11.2-15.7 HEMATOCRIT (BEAKER) (test fcfi=993) 29.1 % 34.1-44.9 MEAN CORPUSCULAR VOLUME (BEAKER) (test aict=477) 95.7 fL 79.4-94.8 MEAN CORPUSCULAR HEMOGLOBIN (BEAKER) (test 30.6 pg 25.6-32.2 rbmh=486) MEAN CORPUSCULAR HEMOGLOBIN CONC (BEAKER) (test 32.0 GM/DL 32.2-35.5 kvll=499) RED CELL DISTRIBUTION WIDTH (BEAKER) (test 14.8 % 11.7-14.4 ldjt=234) PLATELET COUNT (BEAKER) (test uezn=384) 296 K/CU MM 150-450 MEAN PLATELET VOLUME (BEAKER) (test vsiv=299) 10.6 fL 9.4-12.3 NUCLEATED RED BLOOD CELLS (BEAKER) (test 0 /100 WBC 0-0 fomk=982) NEUTROPHILS RELATIVE PERCENT (BEAKER) (test 67 % zetd=533) LYMPHOCYTES RELATIVE PERCENT (BEAKER) (test 19 % sizz=639) MONOCYTES RELATIVE PERCENT (BEAKER) (test 10 % exof=324) EOSINOPHILS RELATIVE PERCENT (BEAKER) (test 3 % mcoh=389) BASOPHILS RELATIVE PERCENT (BEAKER) (test 1 % kryp=339) NEUTROPHILS ABSOLUTE COUNT (BEAKER) (test 4.49 K/ L 1.56-6.13 gwqc=264) LYMPHOCYTES ABSOLUTE COUNT (BEAKER) (test 1.27 K/ L 1.18-3.74 udrq=812) MONOCYTES ABSOLUTE COUNT (BEAKER) (test 0.66 K/ L 0.24-0.36 majb=760) EOSINOPHILS ABSOLUTE COUNT (BEAKER) (test 0.22 K/ L 0.04-0.36 gmhc=771) BASOPHILS ABSOLUTE COUNT (BEAKER) (test 0.04 K/ L 0.01-0.08 lukn=827) IMMATURE GRANULOCYTES-RELATIVE PERCENT (BEAKER) 0 % 0-1 (test senw=1398) B-TYPE NATRIURETIC FACTOR (BNP)2018-07-03 12:21:00 Test Item Value Reference Range Comments B-TYPE NATRIURETIC PEPTIDE (BEAKER) (test 385 pg/mL 0-100 ndek=678) BASIC METABOLIC [id number] 03:44:00 Test Item Value Reference Range Comments SODIUM (BEAKER) (test 133 meq/L 136-145 vtmt=060) POTASSIUM (BEAKER) (test 4.1 meq/L 3.5-5.1 nqfi=919) CHLORIDE (BEAKER) (test 103 meq/L 98-107 axle=295) CO2 (BEAKER) (test 22 meq/L 22-29 sure=518) BLOOD UREA NITROGEN 12 mg/dL 7-21 (BEAKER) (test xuml=083) CREATININE (BEAKER) (test 0.62 mg/dL 0.57-1.25 szne=840) GLUCOSE RANDOM (BEAKER) 102 mg/dL 70-105 (test uczc=035) CALCIUM (BEAKER) (test 8.4 mg/dL 8.4-10.2 jmti=323) EGFR (BEAKER) (test 93 mL/min/1.73 sq m ESTIMATED GFR IS NOT tort=3733) ACCURATE CREATININE CLEARANCE IN PREDICTING GLOMERULAR FILTRATION RATE. ESTIMATED GFR IS NOT APPLICABLE FOR DIALYSIS PATIENTS. LACTIC ACID, [id number] 03:39:00 Test Item Value Reference Range Comments LACTATE BLOOD VENOUS (2) (BEAKER) (test 0.7 mmol/L 0.5-2.2 ypvs=0455) CBC W/PLT COUNT & AUTO [id number] 03:22:00 Test Item Value Reference Range Comments WHITE BLOOD CELL COUNT (BEAKER) (test bbhr=501) 7.2 K/ L 3.5-10.5 RED BLOOD CELL COUNT (BEAKER) (test waqr=813) 2.87 M/ L 3.93-5.22 HEMOGLOBIN (BEAKER) (test eyno=356) 8.8 GM/DL 11.2-15.7 HEMATOCRIT (BEAKER) (test cnzd=573) 27.0 % 34.1-44.9 MEAN CORPUSCULAR VOLUME (BEAKER) (test hnub=280) 94.1 fL 79.4-94.8 MEAN CORPUSCULAR HEMOGLOBIN (BEAKER) (test 30.7 pg 25.6-32.2 xabx=117) MEAN CORPUSCULAR HEMOGLOBIN CONC (BEAKER) (test 32.6 GM/DL 32.2-35.5 purk=874) RED CELL DISTRIBUTION WIDTH (BEAKER) (test 14.6 % 11.7-14.4 kkmd=433) PLATELET COUNT (BEAKER) (test bmqq=160) 224 K/CU MM 150-450 MEAN PLATELET VOLUME (BEAKER) (test hnwe=994) 10.3 fL 9.4-12.3 NUCLEATED RED BLOOD CELLS (BEAKER) (test 0 /100 WBC 0-0 plxs=035) NEUTROPHILS RELATIVE PERCENT (BEAKER) (test 76 % sjmr=137) LYMPHOCYTES RELATIVE PERCENT (BEAKER) (test 13 % ykgj=562) MONOCYTES RELATIVE PERCENT (BEAKER) (test 9 % poeb=186) EOSINOPHILS RELATIVE PERCENT (BEAKER) (test 1 % qyod=918) BASOPHILS RELATIVE PERCENT (BEAKER) (test 0 % mteu=102) NEUTROPHILS ABSOLUTE COUNT (BEAKER) (test 5.45 K/ L 1.56-6.13 hhbr=809) LYMPHOCYTES ABSOLUTE COUNT (BEAKER) (test 0.91 K/ L 1.18-3.74 uwli=498) MONOCYTES ABSOLUTE COUNT (BEAKER) (test 0.64 K/ L 0.24-0.36 bbdw=897) EOSINOPHILS ABSOLUTE COUNT (BEAKER) (test 0.08 K/ L 0.04-0.36 cuti=068) BASOPHILS ABSOLUTE COUNT (BEAKER) (test 0.03 K/ L 0.01-0.08 bwfc=053) IMMATURE GRANULOCYTES-RELATIVE PERCENT (BEAKER) 1 % 0-1 (test yrpi=4447) RAD, CHEST, 1 VIEW, NON [id number] 00:41:00Reason for exam:->acute hypoxiaShould this be performed [...] MDReport Verified Date/Time: 2018 00:41:40 Reading Location: [address] Reading Room POCT- LACTIC ACID, [id number] 20:45:00 Test Item Value Reference Range Comments POC-LACTIC ACID, ARTERIAL 2.1 mmol/L 0.4-1.3 TESTED AT [address] ([facility]) (test aosm=1776) [facility] [address] POCT-BLOOD GASES, [id number] 20:45:00 Test Item Value Reference Range Comments TEMP, CELSIUS-POC (BEAKER) 37.0 (test fhdq=1500) FIO2-POC (BEAKER) (test TESTED AT [address] krft=9909) [place] [id number] PH, ARTERIAL-POC (BEAKER) 7.371 7.350-7.450 (test tgke=3637) PCO2, ARTERIAL-POC (BEAKER) 37.7 mm Hg 35.0-45.0 (test milo=6351) PO2, ARTERIAL-POC (BEAKER) 78.0 mm Hg 80.0-90.0 (test ufax=3248) SO2, ARTERIAL-POC (BEAKER) 95.0 % 96.0-97.0 (test svoq=7517) HCO3, ARTERIAL-POC (BEAKER) 21.9 meq/L 21.0-29.0 (test vylj=7114) BASE EXCESS, ARTERIAL-POC -3.0 meq/L -2.0-3.0 (BEAKER) (test awwt=0792) [id number] 20:45:00 Test Item Value Reference Range Comments POC-SODIUM (BEAKER) (test 133 meq/L 135-148 TESTED AT [address] pozr=7457) [place] [address] [id number] 20:45:00 Test Item Value Reference Range Comments POC-POTASSIUM (BEAKER) (test 3.9 meq/L 3.6-5.5 TESTED AT [address] mvjj=5590) [place] [address] [id number] 20:45:00 Test Item Value Reference Range Comments POC-GLUCOSE (BEAKER) (test 142 mg/dL 70-110 TESTED AT [address] kyja=5724) [place] [address] POCT-CALCIUM [id number] 20:45:00 Test Item Value Reference Range Comments POC-CALCIUM IONIZED (BEAKER) 1.18 mmol/L 1.12-1.27 TESTED AT [address] (test hpin=0826) [place] [address] [id number] 20:45:00 Test Item Value Reference Range Comments POC-HEMATOCRIT (BEAKER) (test 28 % 36-45 TESTED AT [address] cavk=7483) [place] [address] [id number] 20:45:00 Test Item Value Reference Range Comments POC-HEMOGLOBIN (BEAKER) 9.5 g/dL 12.0-15.0 TESTED AT [address] (test ukcp=6475) [place] [address]TESTED AT [place] [address] RESPIRATORY PANEL [id number] 17:58:00 Test Item Value Reference Range Comments HUMAN METAPNEUMOVIRUS (BEAKER) (test Not detected Not detected, Equivocal anxz=7446) RHINOVIRUS (BEAKER) (test nliy=6789) Not detected Not detected, Equivocal INFLUENZA A (BEAKER) (test uoti=6416) Not detected Not detected, Equivocal INFLUENZA A (NO SUBTYPE) (test Not detected, Equivocal uosw=2423) INFLUENZA A SUBTYPE H1 (BEAKER) (test Not detected, Equivocal lqqj=0147) INFLUENZA A SUBTYPE H3 (BEAKER) (test Not detected, Equivocal xwbp=4740) INFLUENZA A SUBTYPE H1-2009 (BEAKER) Not detected, Equivocal (test pdpn=7649) INFLUENZA B (BEAKER) (test woes=8382) Not detected Not detected, Equivocal RESPIRATORY SYNCYTIAL VIRUS (BEAKER) Not detected Not detected, Equivocal (test xadc=3451) PARAINFLUENZA VIRUS 1 (BEAKER) (test Not detected Not detected, Equivocal rsll=3262) PARAINFLUENZA VIRUS 2 (BEAKER) (test Not detected Not detected, Equivocal ixcp=4854) PARAINFLUENZA VIRUS 3 (BEAKER) (test Not detected Not detected, Equivocal yiic=0583) PARAINFLUENZA VIRUS 4 (BEAKER) (test Not detected Not detected, Equivocal muwj=3463) ADENOVIRUS (BEAKER) (test zwdk=7886) Not detected Not detected, Equivocal CORONAVIRUS 229E (BEAKER) (test Not detected Not detected, Equivocal hudd=3560) CORONAVIRUS HKU1 (BEAKER) (test Not detected Not detected, Equivocal fwsd=9003) CORONAVIRUS NL63 (BEAKER) (test Not detected Not detected, Equivocal czlg=8312) CORONAVIRUS OC43 (BEAKER) (test Not detected Not detected, Equivocal gnhi=3503) BORDETELLA PERTUSSIS (BEAKER) (test Not detected Not detected, Equivocal hcqo=1541) CHLAMYDOPHILA PNEUMONIAE (BEAKER) (test Not detected Not detected, Equivocal kfzk=6326) MYCOPLASMA PNEUMONIAE (BEAKER) (test Not detected Not detected, Equivocal ispv=8290) Other viruses and bacteria not targeted by this PCR panel cannot be excluded; therefore clinical correlation and follow up of serology, culture results, and other molecular studies is required. The results are not intended to be used as the sole means for clinical diagnosis or patient management decisions. This sample was tested at the [facility] Molecular Diagnostics Laboratory using the [employer] FilmArray Respiratory Panel. It is FDA cleared and has been verified and approved by the [facility] Molecular Diagnostics Laboratory for clinical use on nasal swab specimens. It is not FDA-cleared for use on bronchial wash/lavage samples. However, for this sample type, validation was performed and test characteristics were determined and approved, by [facility] Molecular Diagnostics laboratory for clinical use under the Clinical Laboratory Improvement Amendments (CLIA) of 1988 requirements. Therefore, FDA clearance isnot required. This laboratory is CLIA-certified and [employer] ([employer])-accredited to perform high complexity testing.RAD, CHEST, 1 VIEW, NON [id number] 15:35:00Reason for exam:->feverShould this be performed at [...] MDReport Verified Date/Time: 07/02/2018 15:35:00 Reading Location: [address] Consult Reading Room HEMOGLOBIN AND [id number] 14:58 :00 Test Item Value Reference Range Comments HEMOGLOBIN (BEAKER) (test udat=646) 8.9 GM/DL 11.2-15.7 HEMATOCRIT (BEAKER) (test yzot=145) 26.5 % 34.1-44.9 RAPID INFLUENZA A&B [id number] 11:44:00 Test Item Value Reference Range Comments RAPID INFLUENZA A AG (BEAKER) (test Negative Negative, Inconclusive phrs=6857) RAPID INFLUENZA B AG (BEAKER) (test Negative Negative, Inconclusive xujh=5799) URINALYSIS W/ REFLEX URINE [id number] 11:38:00 Test Item Value Reference Range Comments COLOR (BEAKER) (test nxja=424) Yellow CLARITY (BEAKER) (test ikea=577) Clear SPECIFIC GRAVITY UA (BEAKER) (test ggkj=050) 1.016 1.001-1.035 PH UA (BEAKER) (test coat=538) 6.0 5.0-8.0 PROTEIN UA (BEAKER) (test tptx=651) Negative Negative GLUCOSE UA (BEAKER) (test uwte=484) Negative Negative KETONES UA (BEAKER) (test hxwa=632) Negative Negative BILIRUBIN UA (BEAKER) (test rmtv=899) Negative Negative BLOOD UA (BEAKER) (test drvf=419) Negative Negative NITRITE UA (BEAKER) (test urap=826) Negative Negative LEUKOCYTE ESTERASE UA (BEAKER) (test mxwe=100) Moderate Negative UROBILINOGEN UA (BEAKER) (test xvgt=844) 0.2 mg/dL 0.2-1.0 RBC UA (BEAKER) (test etvd=769) 1 /HPF WBC UA (BEAKER) (test frvw=696) 13 /HPF MUCUS (BEAKER) (test minh=1574) Occasional SQUAMOUS EPITHELIAL (BEAKER) (test tvhc=085) 1 /HPF SOURCE(BEAKER) (test dfhe=3681) BASIC METABOLIC [id number] 06:10:00 Test Item Value Reference Range Comments SODIUM (BEAKER) (test 133 meq/L 136-145 wsrj=387) POTASSIUM (BEAKER) (test 4.2 meq/L 3.5-5.1 rilu=235) CHLORIDE (BEAKER) (test 104 meq/L 98-107 tvio=150) CO2 (BEAKER) (test 23 meq/L 22-29 yxsp=192) BLOOD UREA NITROGEN 11 mg/dL 7-21 (BEAKER) (test nqnj=392) CREATININE (BEAKER) (test 0.63 mg/dL 0.57-1.25 erek=379) GLUCOSE RANDOM (BEAKER) 94 mg/dL 70-105 (test tbpd=215) CALCIUM (BEAKER) (test 8.5 mg/dL 8.4-10.2 vbpo=439) EGFR (BEAKER) (test 91 mL/min/1.73 sq m ESTIMATED GFR IS NOT qdmk=4838) ACCURATE CREATININE CLEARANCE IN PREDICTING GLOMERULAR FILTRATION RATE. ESTIMATED GFR IS NOT APPLICABLE FOR DIALYSIS PATIENTS. CBC W/PLT COUNT & AUTO [id number] 05:38:00 Test Item Value Reference Range Comments WHITE BLOOD CELL COUNT (BEAKER) (test vkei=137) 7.0 K/ L 3.5-10.5 RED BLOOD CELL COUNT (BEAKER) (test xkyx=465) 3.18 M/ L 3.93-5.22 HEMOGLOBIN (BEAKER) (test zcuj=622) 9.6 GM/DL 11.2-15.7 HEMATOCRIT (BEAKER) (test wgqc=442) 29.8 % 34.1-44.9 MEAN CORPUSCULAR VOLUME (BEAKER) (test hyto=216) 93.7 fL 79.4-94.8 MEAN CORPUSCULAR HEMOGLOBIN (BEAKER) (test 30.2 pg 25.6-32.2 qtve=679) MEAN CORPUSCULAR HEMOGLOBIN CONC (BEAKER) (test 32.2 GM/DL 32.2-35.5 jszi=602) RED CELL DISTRIBUTION WIDTH (BEAKER) (test 14.7 % 11.7-14.4 dvcx=892) PLATELET COUNT (BEAKER) (test vpmr=441) 215 K/CU MM 150-450 MEAN PLATELET VOLUME (BEAKER) (test aksk=763) 10.3 fL 9.4-12.3 NUCLEATED RED BLOOD CELLS (BEAKER) (test 0 /100 WBC 0-0 ccbl=881) NEUTROPHILS RELATIVE PERCENT (BEAKER) (test 78 % btwy=352) LYMPHOCYTES RELATIVE PERCENT (BEAKER) (test 12 % gdvf=035) MONOCYTES RELATIVE PERCENT (BEAKER) (test 8 % yxwp=250) EOSINOPHILS RELATIVE PERCENT (BEAKER) (test 2 % kmko=113) BASOPHILS RELATIVE PERCENT (BEAKER) (test 0 % yyoy=259) NEUTROPHILS ABSOLUTE COUNT (BEAKER) (test 5.43 K/ L 1.56-6.13 tuub=563) LYMPHOCYTES ABSOLUTE COUNT (BEAKER) (test 0.81 K/ L 1.18-3.74 vnjk=943) MONOCYTES ABSOLUTE COUNT (BEAKER) (test 0.56 K/ L 0.24-0.36 pnlx=150) EOSINOPHILS ABSOLUTE COUNT (BEAKER) (test 0.11 K/ L 0.04-0.36 srpt=715) BASOPHILS ABSOLUTE COUNT (BEAKER) (test 0.02 K/ L 0.01-0.08 uffc=727) IMMATURE GRANULOCYTES-RELATIVE PERCENT (BEAKER) 0 % 0-1 (test xxca=1977) HEMOGLOBIN AND [id number] 00:52:00 Test Item Value Reference Range Comments HEMOGLOBIN (BEAKER) (test buqh=544) 9.3 GM/DL 11.2-15.7 HEMATOCRIT (BEAKER) (test albd=005) 28.1 % 34.1-44.9 U/S, [id number] 11:14:00Reason for exam:->?stenosis of Aortic branches noted [...] is recommended if clinically appropriate. Signed: Keisha Luceroeport Verified Date/Time: 07/01/2018 11:14:28 Reading Location: [address] Ultrasound Reading Room HEMOGLOBIN AND [id number] 10:42:00 Test Item Value Reference Range Comments HEMOGLOBIN (BEAKER) (test tbna=044) 7.4 GM/DL 11.2-15.7 HEMATOCRIT (BEAKER) (test dzjt=398) 22.7 % 34.1-44.9 HEMOGLOBIN AND [id number] 22:49:00 Test Item Value Reference Range Comments HEMOGLOBIN (BEAKER) (test onpb=206) 7.2 GM/DL 11.2-15.7 HEMATOCRIT (BEAKER) (test exsg=360) 23.0 % 34.1-44.9 HEMOGLOBIN AND [id number] 11:52:00 Test Item Value Reference Range Comments HEMOGLOBIN (BEAKER) (test kzja=493) 8.4 GM/DL 11.2-15.7 HEMATOCRIT (BEAKER) (test rjnm=478) 28.5 % 34.1-44.9 BASIC METABOLIC [id number] 05:57:00 Test Item Value Reference Range Comments SODIUM (BEAKER) (test 136 meq/L 136-145 eqnn=388) POTASSIUM (BEAKER) (test 3.9 meq/L 3.5-5.1 ntqr=577) CHLORIDE (BEAKER) (test 105 meq/L 98-107 dzwi=051) CO2 (BEAKER) (test 25 meq/L 22-29 jfoz=081) BLOOD UREA NITROGEN 15 mg/dL 7-21 (BEAKER) (test khyi=315) CREATININE (BEAKER) (test 0.73 mg/dL 0.57-1.25 pjtc=547) GLUCOSE RANDOM (BEAKER) 107 mg/dL 70-105 (test rzqq=887) CALCIUM (BEAKER) (test 8.2 mg/dL 8.4-10.2 alcn=798) EGFR (BEAKER) (test 77 mL/min/1.73 sq m ESTIMATED GFR IS NOT khry=6939) ACCURATE CREATININE CLEARANCE IN PREDICTING GLOMERULAR FILTRATION RATE. ESTIMATED GFR IS NOT APPLICABLE FOR DIALYSIS PATIENTS. CBC (HEMOGRAM ONLY)2018-06-30 05:18:00 Test Item Value Reference Range Comments WHITE BLOOD CELL COUNT (BEAKER) (test rzyf=639) 5.6 K/ L 3.5-10.5 RED BLOOD CELL COUNT (BEAKER) (test ptjz=260) 2.62 M/ L 3.93-5.22 HEMOGLOBIN (BEAKER) (test zofh=970) 8.1 GM/DL 11.2-15.7 HEMATOCRIT (BEAKER) (test xugl=333) 25.0 % 34.1-44.9 MEAN CORPUSCULAR VOLUME (BEAKER) (test bhta=305) 95.4 fL 79.4-94.8 MEAN CORPUSCULAR HEMOGLOBIN (BEAKER) (test 30.9 pg 25.6-32.2 pbvy=719) MEAN CORPUSCULAR HEMOGLOBIN CONC (BEAKER) (test 32.4 GM/DL 32.2-35.5 tbcv=222) RED CELL DISTRIBUTION WIDTH (BEAKER) (test 14.8 % 11.7-14.4 ggyw=899) PLATELET COUNT (BEAKER) (test xeot=712) 208 K/CU MM 150-450 MEAN PLATELET VOLUME (BEAKER) (test hhjv=318) 10.4 fL 9.4-12.3 NUCLEATED RED BLOOD CELLS (BEAKER) (test 0 /100 WBC 0-0 aspk=040) [id number] 06:00:00 Test Item Value Reference Range Comments MAGNESIUM (BEAKER) (test kgkx=449) 2.0 mg/dL 1.6-2.6 BASIC METABOLIC [id number] 06:00:00 Test Item Value Reference Range Comments SODIUM (BEAKER) (test 141 meq/L 136-145 nfsq=080) POTASSIUM (BEAKER) (test 3.7 meq/L 3.5-5.1 xcuv=082) CHLORIDE (BEAKER) (test 110 meq/L 98-107 aqku=096) CO2 (BEAKER) (test 24 meq/L 22-29 boij=777) BLOOD UREA NITROGEN 8 mg/dL 7-21 (BEAKER) (test fbju=107) CREATININE (BEAKER) (test 0.70 mg/dL 0.57-1.25 fkcb=942) GLUCOSE RANDOM (BEAKER) 93 mg/dL 70-105 (test anuz=889) CALCIUM (BEAKER) (test 8.5 mg/dL 8.4-10.2 hlec=183) EGFR (BEAKER) (test 81 mL/min/1.73 sq m ESTIMATED GFR IS NOT prkr=3855) ACCURATE CREATININE CLEARANCE IN PREDICTING GLOMERULAR FILTRATION RATE. ESTIMATED GFR IS NOT APPLICABLE FOR DIALYSIS PATIENTS. CBC (HEMOGRAM ONLY)2018-06-29 05:27:00 Test Item Value Reference Range Comments WHITE BLOOD CELL COUNT (BEAKER) (test mqrk=674) 4.5 K/ L 3.5-10.5 RED BLOOD CELL COUNT (BEAKER) (test afwa=795) 3.09 M/ L 3.93-5.22 HEMOGLOBIN (BEAKER) (test dpjy=842) 9.4 GM/DL 11.2-15.7 HEMATOCRIT (BEAKER) (test lutv=243) 28.8 % 34.1-44.9 MEAN CORPUSCULAR VOLUME (BEAKER) (test bfoa=476) 93.2 fL 79.4-94.8 MEAN CORPUSCULAR HEMOGLOBIN (BEAKER) (test 30.4 pg 25.6-32.2 jngm=606) MEAN CORPUSCULAR HEMOGLOBIN CONC (BEAKER) (test 32.6 GM/DL 32.2-35.5 fvvx=374) RED CELL DISTRIBUTION WIDTH (BEAKER) (test 14.9 % 11.7-14.4 qkid=784) PLATELET COUNT (BEAKER) (test fyre=664) 205 K/CU MM 150-450 MEAN PLATELET VOLUME (BEAKER) (test jcnu=267) 10.7 fL 9.4-12.3 NUCLEATED RED BLOOD CELLS (BEAKER) (test 0 /100 WBC 0-0 tgjt=159) RAD, ABDOMEN/KUB, 1 VIEW [id number] 23:50:00Reason for exam:->evaluate for obstruction; acute onset abdominal pain with decreased flatusFINAL REPORT CLINICAL HISTORY: Aris pain with decreased flatus, concern for bowel [...] Verified Date/Time: 06/28/2018 23:50:09 Reading Location : [address] Reading Room Electronically signedby: LIANE ARORA M.D. on 06/28/2018 11:50 PMHEMOGLOBIN AND [id number] 13:24:00 Test Item Value Reference Range Comments HEMOGLOBIN (BEAKER) (test kult=533) 9.6 GM/DL 11.2-15.7 HEMATOCRIT (BEAKER) (test momj=827) 29.3 % 34.1-44.9 BASIC METABOLIC [id number] 05:37:00 Test Item Value Reference Range Comments SODIUM (BEAKER) (test 141 meq/L 136-145 vmeb=536) POTASSIUM (BEAKER) (test 4.0 meq/L 3.5-5.1 adej=743) CHLORIDE (BEAKER) (test 110 meq/L 98-107 pdvc=995) CO2 (BEAKER) (test 23 meq/L 22-29 abzv=668) BLOOD UREA NITROGEN 13 mg/dL 7-21 (BEAKER) (test owri=665) CREATININE (BEAKER) (test 0.73 mg/dL 0.57-1.25 xiuf=924) GLUCOSE RANDOM (BEAKER) 100 mg/dL 70-105 (test tjxu=855) CALCIUM (BEAKER) (test 8.4 mg/dL 8.4-10.2 ohyh=380) EGFR (BEAKER) (test 77 mL/min/1.73 sq m ESTIMATED GFR IS NOT mvno=9883) ACCURATE CREATININE CLEARANCE IN PREDICTING GLOMERULAR FILTRATION RATE. ESTIMATED GFR IS NOT APPLICABLE FOR DIALYSIS PATIENTS. B-TYPE NATRIURETIC FACTOR (BNP)2018-06-28 04:57:00 Test Item Value Reference Range Comments B-TYPE NATRIURETIC PEPTIDE (BEAKER) (test 291 pg/mL 0-100 fptd=923) [id number] 04:52:00 Test Item Value Reference Range Comments MAGNESIUM (BEAKER) (test hruh=000) 2.3 mg/dL 1.6-2.6 CBC (HEMOGRAM ONLY)2018-06-28 04:37:00 Test Item Value Reference Range Comments WHITE BLOOD CELL COUNT 6.2 K/ L 3.5-10.5 (BEAKER) (test rkbg=474) RED BLOOD CELL COUNT (BEAKER) 3.36 M/ L 3.93-5.22 (test pbkx=240) HEMOGLOBIN (BEAKER) (test 10.2 GM/DL 11.2-15.7 yfod=842) HEMATOCRIT (BEAKER) (test 31.1 % 34.1-44.9 emlo=984) MEAN CORPUSCULAR VOLUME 92.6 fL 79.4-94.8 Discordant MCV results (BEAKER) (test weom=463) compared to previous results; clinical correlation required. MEAN CORPUSCULAR HEMOGLOBIN 30.4 pg 25.6-32.2 (BEAKER) (test enxf=626) MEAN CORPUSCULAR HEMOGLOBIN 32.8 GM/DL 32.2-35.5 CONC (BEAKER) (test dhyp=094) RED CELL DISTRIBUTION WIDTH 15.4 % 11.7-14.4 (BEAKER) (test oiso=172) PLATELET COUNT (BEAKER) (test 198 K/CU MM 150-450 fwlf=916) MEAN PLATELET VOLUME (BEAKER) 10.8 fL 9.4-12.3 (test zgbp=336) NUCLEATED RED BLOOD CELLS 0 /100 WBC 0-0 (BEAKER) (test adid=411) HEMOGLOBIN AND [id number] 20:46:00 Test Item Value Reference Range Comments HEMOGLOBIN (BEAKER) (test ydcq=211) 10.5 GM/DL 11.2-15.7 HEMATOCRIT (BEAKER) (test afgr=864) 31.5 % 34.1-44.9 RAD, CHEST, 1 VIEW, NON [id number] 15:18:00Reason for exam:-> dyspneaShould this be performed at the bedside?->YesFINAL REPORT CLINICAL HISTORY: dyspnea TECHNIQUE: 1 view of the chest. COMPARISON: None IMPRESSION: There are no focal infiltrates or effusions. The cardiomediastinal silhouetteis magnified by technique. The osseous structures appear intact. Signed: Ashleigh Aburto MDReport Verified Date/Time: 06/27/2018 15 :18:20 Reading Location: [facility] C0W Consult Reading Room HEMOGLOBIN AND [id number] 14:44:00 Test Item Value Reference Range Comments HEMOGLOBIN (BEAKER) (test hrdn=294) 8.6 GM/DL 11.2-15.7 HEMATOCRIT (BEAKER) (test gpvq=112) 26.5 % 34.1-44.9 POCT-LACTIC ACID, [id number] 13:49:00 Test Item Value Reference Range Comments POC-LACTIC ACID, VENOUS 0.7 mmol/L 0.9-1.[address] [facility] [address] (BEAKER) (test ousj=9429) [place] [address] [id number] 10:25:00 Test Item Value Reference Range Comments PROTIME (BEAKER) (test hzte=295) 14.0 seconds 11.7-14.7 INR (BEAKER) (test yity=671) 1.1 <=5.9 PARTIAL THROMBOPLASTIN TIME (BEAKER) (test 24.6 seconds 22.5-36.0 fhah=589) RECOMMENDED COUMADIN/WARFARIN INR THERAPY RANGESSTANDARD DOSE: 2.0 - 3.0 Includes: PROPHYLAXIS forvenous thrombosis, systemic embolization; TREATMENT for venous thrombosis and/or pulmonary embolus.HIGH RISK: Target INR is 2.5-3.5 for patients with mechanical heart valves.HEMOGLOBIN AND [id number] 09 :55:00 Test Item Value Reference Range Comments HEMOGLOBIN (BEAKER) (test vvse=180) 7.1 GM/DL 11.2-15.7 HEMATOCRIT (BEAKER) (test auki=144) 22.4 % 34.1-44.9 CBC (HEMOGRAM ONLY)2018-06-27 06:28:00 Test Item Value Reference Range Comments WHITE BLOOD CELL COUNT (BEAKER) (test qqxs=042) 6.2 K/ L 3.5-10.5 RED BLOOD CELL COUNT (BEAKER) (test hlqz=042) 2.21 M/ L 3.93-5.22 HEMOGLOBIN (BEAKER) (test qsms=749) 6.7 GM/DL 11.2-15.7 HEMATOCRIT (BEAKER) (test utqc=226) 23.4 % 34.1-44.9 MEAN CORPUSCULAR VOLUME (BEAKER) (test lvyx=476) 105.9 fL 79.4-94.8 MEAN CORPUSCULAR HEMOGLOBIN (BEAKER) (test 30.3 pg 25.6-32.2 mgje=549) MEAN CORPUSCULAR HEMOGLOBIN CONC (BEAKER) (test 28.6 GM/DL 32.2-35.5 zqlw=617) RED CELL DISTRIBUTION WIDTH (BEAKER) (test 14.1 % 11.7-14.4 ctcq=312) PLATELET COUNT (BEAKER) (test meoy=532) 180 K/CU MM 150-450 MEAN PLATELET VOLUME (BEAKER) (test hpka=686) 10.9 fL 9.4-12.3 NUCLEATED RED BLOOD CELLS (BEAKER) (test 0 /100 WBC 0-0 dprv=392) BASIC METABOLIC [id number] 06:28:00 Test Item Value Reference Range Comments SODIUM (BEAKER) (test 137 meq/L 136-145 mpww=361) POTASSIUM (BEAKER) (test 4.3 meq/L 3.5-5.1 serf=315) CHLORIDE (BEAKER) (test 110 meq/L 98-107 zhlg=473) CO2 (BEAKER) (test 20 meq/L 22-29 gwxq=542) BLOOD UREA NITROGEN 31 mg/dL 7-21 (BEAKER) (test bvsa=856) CREATININE (BEAKER) (test 0.72 mg/dL 0.57-1.25 oebd=548) GLUCOSE RANDOM (BEAKER) 130 mg/dL 70-105 (test xami=754) CALCIUM (BEAKER) (test 7.3 mg/dL 8.4-10.2 ezrb=863) EGFR (BEAKER) (test 78 mL/min/1.73 sq m ESTIMATED GFR IS NOT axoi=1720) ACCURATE CREATININE CLEARANCE IN PREDICTING GLOMERULAR FILTRATION RATE. ESTIMATED GFR IS NOT APPLICABLE FOR DIALYSIS PATIENTS. HEPATIC FUNCTION [id number] 06:28:00 Test Item Value Reference Range Comments TOTAL PROTEIN (BEAKER) (test ixzl=125) 4.4 gm/dL 6.0-8.3 ALBUMIN (BEAKER) (test uuqb=5134) 2.8 g/dL 3.5-5.0 BILIRUBIN TOTAL (BEAKER) (test fzsy=173) 0.2 mg/dL 0.2-1.2 BILIRUBIN DIRECT (BEAKER) (test qyim=431) 0.1 mg/dL 0.1-0.5 ALKALINE PHOSPHATASE (BEAKER) (test epqs=141) 15 U/L 40-150 AST (SGOT) (BEAKER) (test lvdh=010) 14 U/L 5-34 ALT (SGPT) (BEAKER) (test gitz=897) 12 U/L 6-55 [id number] 06:27:00 Test Item Value Reference Range Comments MAGNESIUM (BEAKER) (test ojhv=650) 1.8 mg/dL 1.6-2.6
[2019-02-23] MEDS ORDERED: SOTALOL HCL 80 MG TAB PO ONE (11:55)
[2019-02-23] MEDS ORDERED: DOCUSATE NA 100 MG CAP PO PRN (12:04)
[2019-02-23] MEDS ORDERED: ALBUTEROL INHALER 60 PUFF/8 GM IH PRN (12:04)
[2019-02-23] MEDS: IPRATROPIUM BROM 0.5MG/2.5ML NEB SCH ×3 (12:15→20:00)
[2019-02-23] MEDS: ALBUTEROL 2.5 MG/3 ML NEB SOL NEB SCH ×3 (12:15→20:00)
[2019-02-23 12:23] LABS: Basophils % 0.5 % (0-1.3); Lymphocytes % 13.8 % (15.3-44.8); MPV 9.2 fL (7.6-11.3); RBC Red Blood Cell Count 4.63 M/uL (3.86-4.86)
[2019-02-23 12:29] VITALS: BMI 27.2
[2019-02-23] MEDS: METHYLPREDNISOLONE 40 MG INJ IV SCH ×2 (12:33→17:09)
--- NOTE | 2019-02-23 13:26 | RAD REPORT ---
EXAM DESCRIPTION: RAD - Chest Pa And Lat (2 Views) - 02/23/2019 1:19 pm CLINICAL HISTORY: COPD Chest pain. COMPARISON: Chest Pa And Lat (2 Views) dated 02/16/2019; Chest Single View dated 06/26/2018; Chest Pa And Lat (2 Views) dated 04/22/2018; Chest Pa And Lat (2 Views) dated 05/03/2017 FINDINGS: The lungs are diffusely emphysematous. The heart is moderately enlarged in size with a tor tuous and atherosclerotic aortic arch. No displaced fractures. IMPRESSION: Prominent COPD. Mild to moderate cardiomegaly.
[2019-02-23 13:49] LABS: Albumin 3.9 g/dL (3.4-5.0); Bilirubin Total 0.6 mg/dL (0.2-1.0); Potassium 3.8 mmol/L (3.5-5.1); Thyroid Stimulating Hormone 1.08 uIU/mL (0.360-3.740)
[2019-02-23] MEDS: BENZONATATE 100 MG CAP PO SCH ×2 (14:25→20:31)
[2019-02-23 14:58] LABS: Urine Appearance CLOUDY; Urine Bilirubin NEGATIVE (NEG); Urine Blood TRACE (NEG); Urine Color YELLOW; Urine Glucose NEGATIVE (NEG); Urine Protein NEGATIVE (NEG); Urine Specific Gravity 1.015 (1.005-1.030); Urine Urobilinogen 0.2 mg/dL (0.2-1.0); Urine pH 6.5 (5.0-7.0)
[2019-02-23 15:36] LABS: Urine Bacteria >50 /HPF (<20); Urine Culture Reflex Order REFLEXED; Urine Mucus 2+ /HPF (NONE SEEN)
--- NOTE | 2019-02-23 15:54 | EKG ---
Test Date: 2019-02-23 Test Time: 12:14:32 Frame Repairer: SAUMYA MEASUREMENT RESULTS: Intervals: Rate: 134 VT: QRSD: 86 QT: 248 QTc: 370 [place]: P: VT: QRS: 49 T: 214 INTERPRETIVE STATEMENTS: Atrial flutter with variable AV block Septal infarct, age undetermined Abnormal ECG Compared to ECG 02/16/2019 12:32:01 Myocardial infarct finding now present Atrial fibrillation no longer present ST (T wave) deviation no longer present Electronically Signed On 02-23-19 15:54:02 FASHION COORDINATOR by Markel Salgado
[2019-02-23] MEDS ORDERED: POTASSIUM CL SA 10 MEQ TAB PO ONE (16:00)
--- NOTE | 2019-02-23 18:55 | CON ---
History Of Present Illness: Mrs. Corcoran is 78. She was placed in the hospital by Dr. Hameed because of worsening dyspnea. She was in the hospital a week ago, she was having atrial fibrillation for unknown duration and was started on Betapace and Eliquis and she seems to be doing fairly well. She has severe asthma for many years. She tolerated the beta-patrick in the past. It could be that her asthma got worse because of the sotalol, in which case we have to switch gears and try another medication. We will see how much she clears up with bronchodilator therapy first. If we want to switch, I would recommend switching to a combination of diltiazem and flecainide 50 b.i.d. She is still in atrial fibrillation. We do not want to cardiovert her yet. If we determine this is all due to sotalol, we will not make changes, but not unless we need to. Physical Examination: General: She is alert, oriented, pleasant, mildly obese, in mild respiratory distress. The breathing mask with a nebulized medication is being administered through it. Vital Signs: Her heart rate is irregular about 100 beats per minute. Blood pressure 150/112. Plan: I think if we decide that the sotalol is the culprit, then we will switch to Cardizem CD 180 per rate controlled, blood pressure control, and flecainide 50 mg b.i.d. JUANA/JADE Voice ID: [id number] Report ID: [id number] MTDD
[2019-02-23] MEDS: SALMETEROL IH SCH (20:29)
[2019-02-23] MEDS: FLUTICASONE PROPION IH SCH (20:29)
[2019-02-23] MEDS: SOTALOL HCL 80 MG TAB PO SCH (20:30)
[2019-02-23] MEDS: APIXABAN 5 MG TABLET PO SCH (20:31)
[2019-02-23] MEDS: LISINOPRIL 20 MG TAB PO SCH (20:32)
[2019-02-23] MEDS ORDERED: ATORVASTATIN 20 MG TAB PO SCH (21:00)
[2019-02-24] MEDS: METHYLPREDNISOLONE 40 MG INJ IV SCH ×5 (00:25→23:29)
[2019-02-24] MEDS: ALBUTEROL 2.5 MG/3 ML NEB SOL NEB SCH ×7 (04:00→23:43)
[2019-02-24] MEDS: IPRATROPIUM BROM 0.5MG/2.5ML NEB SCH ×7 (04:00→23:43)
[2019-02-24 04:54] LABS: Potassium 5.2 mmol/L (3.5-5.1)
--- NOTE | 2019-02-24 04:56 | HP ---
Date of Admission: 02/23/2019 Chief Complaint: Not feeling good. History Of Present Illness: This is an 78-year-old very pleasant female patient who was diagnosed as having atrial fibrillation and was in the hospital overnight and this was last week. She was discha rged to go home with sotalol 80 mg twice a day and Eliquis 5 mg twice a day and her diltiazem that evelio bernard was taking was discontinued once sotalol was started. Her heart rate was well controlled when she was in the hospital. 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 Today, she came into office with her friend and informed me that after she went home, she has not been feeling good. She was having a tr ansient shortness of breath with or without activity and today she was at office in wheelchair. 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 Denies any fever, chills. Has cough, chest congestion, and coughs up some clear mucus from time to time. Denies any vomiting, diarrhea. With her worsening shortness of breath problem, we admitted h er to the hospital today with acute exacerbation of COPD and her atrial fibrillation was not well con trolled. Heart rate was around 120 and she was still in atrial fibrillation. Decision was made to a dmit her directly to the hospital for further management of this problem. Allergies: NO KNOWN ALLERGIES. Medications: List reviewed. Review of Systems: Respiratory: As mentioned above. Cardiovascular: As mentioned above. All other systems reviewed and negative. Medications: List reviewed. Allergies: NO KNOWN ALLERGIES. Social History: Prior history of smoking, not at present time. Use of alcohol, negative. Family History: Significant for cervical cancer, lung cancer, breast cancer. Past Surgical History: Significant for hysterectomy. Past Medical History: Significant for COPD, asthma, hypertension, hyperlipidemia, diverticulosis, an d atrial fibrillation, which was diagnosed 1 week ago. Physical Examination: Vital Signs: Temperature 97.7, pulse 123, respiratory rate 22, blood pressure 150/112, oxygen satura tion 99%, height 5 feet 2 inches, weight 148 pounds. General: Patient appears weaker than normal, not in any distress at rest. HEENT: Head atraumatic, normocephalic. Conjunctivae nonerythematous. Sclerae white. Mouth, no thr ush or edema noted. Ears/Nose, no mass, lesion, discharge noted. Neck: Supple. No JVD, lymph nodes, bruit, thyromegaly noted. Lungs: Bilateral scattered wheezing noted in both lung nicholson with some rales noted in lower lung fi elds. Heart: No heart murmur, but the patient's rhythm is irregularly irregular and rapid. Abdomen: Soft, bowel sounds normal. No guarding, rigidity, tenderness, mass, hepatosplenomegaly, dis tention, or bruit noted. Extremities: No leg edema. No calf tenderness. Skin: No rash, ulcer, cellulitis. Lymphatics: No lymph node enlargement in neck, supraclavicular, infraclavicular region. Neuro: No focal neurological deficit. Chest: Unremarkable. External Genitalia: Deferred. Rectal: Deferred. Laboratory Data: EKG; atrial fibrillation with rapid ventricular rate. Chest x-ray, no acute cardio pulmonary changes noted, but changes of extensive COPD noted. White count 7.6, hemoglobin 14.1, plat elets 281. Sodium 141, potassium 3.8, chloride 105, bicarb 30, BUN 17, creatinine 0.83, glucose 110. Liver function tests unremarkable except for SGOT 43. Procalcitonin less than 0.05. TSH of 1.080. Urinalysis; positive for nitrite, trace blood, 1+ esterase, 20-50 wbc, bacteria more than 50. Impression: 1.Acute exacerbation of chronic obstructive pulmonary disease. 2.Atrial fibrillation, chronic. 3.Hypertension. 4.Hyperlipidemia. 5.Diverticulosis. 6.Chronic anticoagulation therapy. Plan: Admit patient to hospital for further evaluation and management of this problem. The patient is appropriate for inpatient and is expected to spend 2 midnights in the hospital. Soon after she wa s admitted to the hospital, 1 extra dose of sotalol was given and we will consult Cardiology to see w hat other management that he would like to consider considering sotalol current dose has not worked. Options are either to increase the dose of sotalol or keep changing to different type of antiarrhyth pina medication. We will continue her Eliquis that she is currently taking for anticoagulation therap y. We will give her IV steroids. Again, home medications will be continued per order. No need for any IV antibiotics at this point, and I will see her tomorrow for followup. Details and plan of betzaida tment discussed with the patient. EMEKA/JADE Voice ID: [id number]
[2019-02-24] MEDS ORDERED: SOD POLYSTYREN SUL 15 GM/60 ML UCUP PO ONE (07:08)
[2019-02-24] MEDS ORDERED: SERTRALINE HCL 50 MG TAB PO SCH (08:00)
[2019-02-24] MEDS ORDERED: VITAMIN D 1000 UNIT TAB PO SCH (09:00)
[2019-02-24] MEDS ORDERED: FENOFIBRATE 160 MG TAB PO SCH (09:00)
[2019-02-24] MEDS ORDERED: hydroCHLOROthiazide 12.5 MG CAP PO SCH (09:00)
[2019-02-24] MEDS: LISINOPRIL 20 MG TAB PO SCH ×2 (09:43→20:05)
[2019-02-24] MEDS: SOTALOL HCL 80 MG TAB PO SCH ×2 (09:44→20:06)
[2019-02-24] MEDS: APIXABAN 5 MG TABLET PO SCH (09:44)
[2019-02-24] MEDS: PANTOPRAZOLE 40MG TABLET PO SCH (09:45)
[2019-02-24] MEDS: BENZONATATE 100 MG CAP PO SCH ×3 (09:47→20:05)
[2019-02-24] MEDS: SALMETEROL IH SCH ×2 (10:10→20:02)
[2019-02-24] MEDS: FLUTICASONE PROPION IH SCH ×2 (10:10→20:02)
[2019-02-24] MEDS: SPIRIVA IH SCH (10:11)
[2019-02-24] MEDS ORDERED: DOCUSATE NA 100 MG CAP PO PRN (14:42)
--- NOTE | 2019-02-24 19:50 | PN ---
Date of Progress Note: 02/24/2019 Ms. Corcoran was seen by Dr. Salgado for COPD exacerbation, atrial fibrillation. Patient is still in atri al fibrillation with a rate control. She is on Betapace and Eliquis. She is feeling much better thi s morning. She feels like she needs to stay in the hospital for 1 more day, but on examination, she did not have any wheezing. She still has her oxygen on. I was discussed with Dr. Hameed. I believe s he can probably stay on her Betapace and Eliquis at this point when she goes home. MARCIA/JADE Voice ID: [id number] Report ID: [id number]
[2019-02-24] MEDS: APIXABAN 5 MG PO SCH (20:04)
[2019-02-24] MEDS ORDERED: ATORVASTATIN 20 MG TAB PO SCH (21:00)
--- NOTE | 2019-02-25 00:49 | PN ---
Date of Progress Note: 02/24/2019 Subjective: Patient was seen this morning for followup. She was feeling overall better today compared to yesterday. No new complaints or problems reported. Objective: Vital Signs: Reviewed. HEENT: Unremarkable. Lungs: Bilateral good equal entry. Presence of some scattered wheezing noted. Overall significantly better today than yesterday, not in respiratory distress. Heart: Sounds normal. Abdomen: Soft. Bowel sounds normal. No guarding, rigidity, tenderness, or distention. Extremities: No leg edema. Laboratory Data: Sodium 143, potassium 5.2, chloride 109, bicarb 30, BUN 24, creatinine 0.85, glucose 155. Impression: 1. Acute exacerbation of chronic obstructive pulmonary disease. 2. Atrial fibrillation with rapid ventricular rate. 3. Chronic anticoagulation therapy. 4. Hypertension. Plan: Cardiology consultation from Dr. Salgado appreciated. Today, Dr. Carpenter called and informed me that his recommendation is to continue current sotalol dose and not to increase sotalol dose and no need to change it to different type of antiarrhythmic medication. Continue current Eliquis. Patient's breathing is better with IV steroid and nebulizer treatment, so we really believe that her problem was acute exacerbation of chronic obstructive pulmonary disease and we will see how she continues to tolerate current medication including sotalol; and if not, we will have to consider to change it to different type of antiarrhythmic medication, but at this point, plan is to continue current sotalol and Eliquis, possible discharge to go home tomorrow. EMEKA/MODL Voice ID: [id number] Report ID: [id number] MTDD
[2019-02-25] MEDS: ALBUTEROL 2.5 MG/3 ML NEB SOL NEB SCH ×2 (03:20→07:45)
[2019-02-25] MEDS: IPRATROPIUM BROM 0.5MG/2.5ML NEB SCH ×2 (03:20→07:45)
[2019-02-25] MEDS: METHYLPREDNISOLONE 40 MG INJ IV SCH (05:41)
[2019-02-25] MEDS ORDERED: SERTRALINE HCL 25 MG TAB PO SCH (08:00)
[2019-02-25] MEDS ORDERED: predniSONE 20 MG TAB PO ONE (08:03)
[2019-02-25] MEDS ORDERED: VITAMIN D 2000 UNIT PO SCH (09:00)
[2019-02-25] MEDS ORDERED: FENOFIBRATE 145 MG TAB PO SCH (09:00)
[2019-02-25 09:10] VITALS: TEMP 97.2
[2019-02-25 09:40] VITALS: O2SAT 95
[2019-02-25] MEDS: FLUTICASONE PROPION IH SCH (09:42)
[2019-02-25] MEDS: SALMETEROL IH SCH (09:42)
[2019-02-25] MEDS: SPIRIVA IH SCH (09:44)
[2019-02-25] MEDS: BENZONATATE 100 MG CAP PO SCH (09:46)
[2019-02-25] MEDS: APIXABAN 5 MG PO SCH (09:47)
[2019-02-25] MEDS: LISINOPRIL 20 MG TAB PO SCH (09:48)
[2019-02-25] MEDS: PANTOPRAZOLE 40MG TABLET PO SCH (09:49)
[2019-02-25] MEDS: SOTALOL HCL 80 MG TAB PO SCH (09:49)
[2019-02-25 09:52] VITALS: BP 144/75
--- NOTE | 2019-02-26 04:54 | DS ---
Date of Discharge: 02/25/2019 Disposition: Discharged to go home. Physical Examination: HEENT: Unremarkable. Lungs: Clear to auscultation. Heart: Sounds normal. Abdomen: Soft, bowel sounds normal. No guarding, rigidity, tenderness, distention. Extremities: No leg. Laboratory Data: White count 7.6, hemoglobin 14.1, platelets 281. Sodium 141, potassium 3.8, chlori de 105, bicarb 30, BUN 17, creatinine 0.83, glucose 110. Magnesium 2. TSH 1.080. Procalcitonin neg ative. Discharge Medications And Instructions: 1.Continue prior home medications. 2.Take prednisone as prescribed, which is 10 mg tablet. The patient is to take 3 tablets daily for 3 days, then 2 tablets daily for 3 days, then 1 tablet daily for 3 days, then stop. 3.Follow up at my office on 03/04/2019 at 9:00 a.m. Hospital Course: This is an 78-year-old female patient admitted to the hospital after she came into the office with complaints of not feeling good. Please see dictated H and P for more information. T he patient had atrial fibrillation with rapid ventricular rate when she was admitted to the hospital and acute exacerbation of chronic obstructive pulmonary disease. Her atrial fibrillation with rapid ventricular rate was thought to be secondary to acute exacerbation of chronic obstructive pulmonary d isease. With her recent hospital admission about a week prior to this admission, she was discharged to go home with sotalol and Eliquis and diltiazem was discontinued and she has been taking all of her medications as prescribed. Denies any fever, chills. No expectoration. Chest x-ray did not reveal any evidence of pneumonia. After she was admitted to the hospital, she was started on oxygen nebuli zer treatment, IV steroids. Home medications were continued. Sotalol was continued. Cardiology con sultation was obtained from Dr. Salgado. Dr. Salgado evaluated her and he entertained possibility of c hanging from sotalol to flecainide and put her back on her diltiazem, but day after that Dr. Carpenter saw her and he called and talked to me and informed me that at this point his recommendation will be to continue sotalol and Eliquis as prescribed. No need to increase the dose as we believe that the r kyle why she was feeling poorly and required this hospital admission is because of acute exacerbatio n of COPD and she has responded very well to the treatment so at this point our plan is to continue h er sotalol and Eliquis as prescribed. The patient was discharged to go home in stable and improved c ondition and I will see her next week for followup at office. Final Diagnoses: 1.Acute exacerbation of chronic obstructive pulmonary disease. 2.Atrial fibrillation, chronic. 3.Hypertension. 4.Hyperlipidemia. 5.Diverticulosis. 6.Chronic anticoagulation therapy. EMEKA/MODL Voice ID: [id number] Report ID: [id number]
== END 2019-02-25 10:31 | disposition home or self-care (01) | DRG 191 ==
LOC: 4TH 11:04
PROVIDERS: ADMIT Internal Medicine; ATTEND Internal Medicine
DX: J44.1 Chronic obstructive pulmonary disease with (acute) exacerbation (principal); I48.20 Chronic atrial fibrillation, unspecified; I10 Essential (primary) hypertension; E78.5 Hyperlipidemia, unspecified; K57.90 Diverticulosis of intestine, part unspecified, without perforation or abscess without bleeding; Z79.01 Long term (current) use of anticoagulants
CPT/HCPCS: 36415; 71046; 80048; 80053; 81001; 83735; 84145; 84443; 85025; 87077; 87086; 87088; 87186; 93005; 94640; J2920; J7512

== ENCOUNTER 2019-03-24 06:39 | Day surgery (SDC) | payer OTHER, MEDICARE ==
[2019-03-23 15:26] VITALS: BMI 27.6
[2019-03-23 16:19] LABS: Absolute Lymphocytes (CBC) 0.9 K/uL (0.7-4.9); Basophils % 0.6 % (0-1.3); Hematocrit 39.5 % (36.0-45.0); Lymphocytes % 16.2 % (15.3-44.8); RBC Red Blood Cell Count 4.38 M/uL (3.86-4.86)
[2019-03-23 16:22] LABS: Protime INR 1.74
[2019-03-23 16:35] LABS: Potassium 3.5 mmol/L (3.5-5.1)
--- OUTSIDE RECORDS SUMMARY | 2019-03-24 06:43 | XMS REPORT ---
:1940 [facility] Michele Booth. [address] [place] [address] Care Team Providers Name Role Phone CHITRA FRENCH Unavailable Unavailable Problems This patient has no known problems. Allergies, Adverse Reactions, Alerts This patient has no known allergies or adverse reactions. Medications This patient has no known medications. Results Test Description Test Time Test Comments Text Results Atomic Results Result Comments BLOOD CULTURE 2018-07-10 20:01:00 Test Item Value Reference Range Comments CULTURE (BEAKER) (test xsqd=5431) No growth in 5 days BLOOD [id number] 20:01:00 Test Item Value Reference Range Comments CULTURE (BEAKER) (test hybf=2443) No growth in 5 days BASIC METABOLIC [id number] 07:48:00 Test Item Value Reference Range Comments SODIUM (BEAKER) (test 134 meq/L 136-145 rcxc=935) POTASSIUM (BEAKER) (test 4.9 meq/L 3.5-5.1 llfs=367) CHLORIDE (BEAKER) (test 101 meq/L 98-107 hmkk=493) CO2 (BEAKER) (test 26 meq/L 22-29 ycdm=110) BLOOD UREA NITROGEN 27 mg/dL 7-21 (BEAKER) (test harh=190) CREATININE (BEAKER) (test 0.67 mg/dL 0.57-1.25 bpzk=075) GLUCOSE RANDOM (BEAKER) 161 mg/dL 70-105 (test kvyh=747) CALCIUM (BEAKER) (test 9.1 mg/dL 8.4-10.2 vskq=495) EGFR (BEAKER) (test 85 mL/min/1.73 sq m ESTIMATED GFR IS NOT ktac=6387) ACCURATE CREATININE CLEARANCE IN PREDICTING GLOMERULAR FILTRATION RATE. ESTIMATED GFR IS NOT APPLICABLE FOR DIALYSIS PATIENTS. CBC (HEMOGRAM ONLY)2018-07-09 06:36:00 Test Item Value Reference Range Comments WHITE BLOOD CELL COUNT (BEAKER) (test noet=938) 5.9 K/ L 3.5-10.5 RED BLOOD CELL COUNT (BEAKER) (test tomu=617) 3.11 M/ L 3.93-5.22 HEMOGLOBIN (BEAKER) (test ozxp=651) 9.7 GM/DL 11.2-15.7 HEMATOCRIT (BEAKER) (test vayl=630) 29.9 % 34.1-44.9 MEAN CORPUSCULAR VOLUME (BEAKER) (test fvlt=978) 96.1 fL 79.4-94.8 MEAN CORPUSCULAR HEMOGLOBIN (BEAKER) (test 31.2 pg 25.6-32.2 ybas=178) MEAN CORPUSCULAR HEMOGLOBIN CONC (BEAKER) (test 32.4 GM/DL 32.2-35.5 txbg=258) RED CELL DISTRIBUTION WIDTH (BEAKER) (test 14.9 % 11.7-14.4 ldiw=547) PLATELET COUNT (BEAKER) (test eglt=165) 422 K/CU MM 150-450 MEAN PLATELET VOLUME (BEAKER) (test jwje=125) 10.4 fL 9.4-12.3 NUCLEATED RED BLOOD CELLS (BEAKER) (test 0 /100 WBC 0-0 cbfp=210) BASIC METABOLIC [id number] 05:52:00 Test Item Value Reference Range Comments SODIUM (BEAKER) (test 134 meq/L 136-145 tqle=720) POTASSIUM (BEAKER) (test 4.3 meq/L 3.5-5.1 saml=876) CHLORIDE (BEAKER) (test 100 meq/L 98-107 nawj=870) CO2 (BEAKER) (test 25 meq/L 22-29 hwgk=353) BLOOD UREA NITROGEN 21 mg/dL 7-21 (BEAKER) (test fbga=550) CREATININE (BEAKER) (test 0.74 mg/dL 0.57-1.25 dtkg=767) GLUCOSE RANDOM (BEAKER) 176 mg/dL 70-105 (test wkwh=598) CALCIUM (BEAKER) (test 9.2 mg/dL 8.4-10.2 oeqw=110) EGFR (BEAKER) (test 76 mL/min/1.73 sq m ESTIMATED GFR IS NOT oskd=0918) ACCURATE CREATININE CLEARANCE IN PREDICTING GLOMERULAR FILTRATION RATE. ESTIMATED GFR IS NOT APPLICABLE FOR DIALYSIS PATIENTS. CBC (HEMOGRAM ONLY)2018-07-08 05:16:00 Test Item Value Reference Range Comments WHITE BLOOD CELL COUNT (BEAKER) (test ezgy=728) 5.7 K/ L 3.5-10.5 RED BLOOD CELL COUNT (BEAKER) (test kmdf=924) 3.26 M/ L 3.93-5.22 HEMOGLOBIN (BEAKER) (test otye=741) 10.1 GM/DL 11.2-15.7 HEMATOCRIT (BEAKER) (test sovu=316) 31.5 % 34.1-44.9 MEAN CORPUSCULAR VOLUME (BEAKER) (test mrfz=550) 96.6 fL 79.4-94.8 MEAN CORPUSCULAR HEMOGLOBIN (BEAKER) (test 31.0 pg 25.6-32.2 xofm=311) MEAN CORPUSCULAR HEMOGLOBIN CONC (BEAKER) (test 32.1 GM/DL 32.2-35.5 ppdx=586) RED CELL DISTRIBUTION WIDTH (BEAKER) (test 14.7 % 11.7-14.4 pftr=378) PLATELET COUNT (BEAKER) (test ruvt=057) 386 K/CU MM 150-450 MEAN PLATELET VOLUME (BEAKER) (test ednj=224) 10.7 fL 9.4-12.3 NUCLEATED RED BLOOD CELLS (BEAKER) (test 0 /100 WBC 0-0 bfwe=669) BLOOD GAS, [id number] 18:38:00 Test Item Value Reference Range Comments PH ARTERIAL (BEAKER) (test zeyk=807) 7.49 7.35-7.45 PCO2 ARTERIAL (BEAKER) (test qfxn=483) 37 mmHg 35-45 PO2 ARTERIAL (BEAKER) (test aroq=035) 76 mmHg 80-90 O2 SATURATION ARTERIAL (BEAKER) (test cors=126) 95.8 % 96.0-97.0 HCO3 ARTERIAL (BEAKER) (test lnec=799) 27 mmol/L 21-29 BASE EXCESS ARTERIAL (BEAKER) (test efvs=298) 3.8 mmol/L -2.0-3.0 PATIENT TEMPERATURE (BEAKER) (test kmfk=7137) 37.7 C FIO2 (BEAKER) (test ucex=4269) 28.0 % B-TYPE NATRIURETIC FACTOR (BNP)2018-07-06 18:34:00 Test Item Value Reference Range Comments B-TYPE NATRIURETIC PEPTIDE (BEAKER) (test 248 pg/mL 0-100 xteh=813) RAD, CHEST, 1 VIEW, NON [id number] 17:51:00Reason for exam:->SOBShould this be performed at [...] Verified Date/ Time: 07/06/2018 17:51:18 Reading Location: [address] Reading Room [facility] METABOLIC [id number] 06:27:00 Test Item Value Reference Range Comments SODIUM (BEAKER) (test 133 meq/L 136-145 giss=928) POTASSIUM (BEAKER) (test 3.4 meq/L 3.5-5.1 Specimen slightly mwhi=566) hemolyzed CHLORIDE (BEAKER) (test 97 meq/L 98-107 vjoc=231) CO2 (BEAKER) (test 25 meq/L 22-29 nryb=273) BLOOD UREA NITROGEN 14 mg/dL 7-21 (BEAKER) (test cmpg=952) CREATININE (BEAKER) (test 0.70 mg/dL 0.57-1.25 Specimen slightly dhci=796) hemolyzed GLUCOSE RANDOM (BEAKER) 100 mg/dL 70-105 (test vukb=076) CALCIUM (BEAKER) (test 9.0 mg/dL 8.4-10.2 xafv=630) EGFR (BEAKER) (test 81 mL/min/1.73 sq m ESTIMATED GFR IS NOT wbta=8886) ACCURATE CREATININE CLEARANCE IN PREDICTING GLOMERULAR FILTRATION RATE. ESTIMATED GFR IS NOT APPLICABLE FOR DIALYSIS PATIENTS. CBC W/PLT COUNT & AUTO [id number] 05:54:00 Test Item Value Reference Range Comments WHITE BLOOD CELL COUNT (BEAKER) (test daoe=238) 6.9 K/ L 3.5-10.5 RED BLOOD CELL COUNT (BEAKER) (test abbl=907) 3.18 M/ L 3.93-5.22 HEMOGLOBIN (BEAKER) (test oqbw=453) 9.7 GM/DL 11.2-15.7 HEMATOCRIT (BEAKER) (test aivt=910) 30.2 % 34.1-44.9 MEAN CORPUSCULAR VOLUME (BEAKER) (test bgmi=246) 95.0 fL 79.4-94.8 MEAN CORPUSCULAR HEMOGLOBIN (BEAKER) (test 30.5 pg 25.6-32.2 bkle=686) MEAN CORPUSCULAR HEMOGLOBIN CONC (BEAKER) (test 32.1 GM/DL 32.2-35.5 mkuc=915) RED CELL DISTRIBUTION WIDTH (BEAKER) (test 14.3 % 11.7-14.4 ptae=802) PLATELET COUNT (BEAKER) (test wodp=398) 327 K/CU MM 150-450 MEAN PLATELET VOLUME (BEAKER) (test bjte=628) 10.5 fL 9.4-12.3 NUCLEATED RED BLOOD CELLS (BEAKER) (test 0 /100 WBC 0-0 vqdo=159) NEUTROPHILS RELATIVE PERCENT (BEAKER) (test 74 % fiuj=185) LYMPHOCYTES RELATIVE PERCENT (BEAKER) (test 15 % xdvk=250) MONOCYTES RELATIVE PERCENT (BEAKER) (test 8 % luqj=750) EOSINOPHILS RELATIVE PERCENT (BEAKER) (test 2 % umrm=772) BASOPHILS RELATIVE PERCENT (BEAKER) (test 1 % jxwv=700) NEUTROPHILS ABSOLUTE COUNT (BEAKER) (test 5.06 K/ L 1.56-6.13 oiso=256) LYMPHOCYTES ABSOLUTE COUNT (BEAKER) (test 1.04 K/ L 1.18-3.74 qjbd=971) MONOCYTES ABSOLUTE COUNT (BEAKER) (test 0.58 K/ L 0.24-0.36 zids=336) EOSINOPHILS ABSOLUTE COUNT (BEAKER) (test 0.12 K/ L 0.04-0.36 fnvm=805) BASOPHILS ABSOLUTE COUNT (BEAKER) (test 0.04 K/ L 0.01-0.08 iqsi=336) IMMATURE GRANULOCYTES-RELATIVE PERCENT (BEAKER) 0 % 0-1 (test ioyx=3767) [id number] 09:53:00 Test Item Value Reference Range Comments PROCALCITONIN (BEAKER) (test iuqz=9665) 0.12 ng/mL <0.05 SEPSIS RISK (ng/mL)Low: 0.05-0.50Intermediate: 0.51-2.00High: & gt;=2.01CBC W/PLT COUNT & AUTO [id number] 06:33:00 Test Item Value Reference Range Comments WHITE BLOOD CELL COUNT (BEAKER) (test pkjp=455) 5.5 K/ L 3.5-10.5 RED BLOOD CELL COUNT (BEAKER) (test bxvu=274) 2.85 M/ L 3.93-5.22 HEMOGLOBIN (BEAKER) (test duli=636) 8.7 GM/DL 11.2-15.7 HEMATOCRIT (BEAKER) (test fofe=668) 26.8 % 34.1-44.9 MEAN CORPUSCULAR VOLUME (BEAKER) (test dlma=532) 94.0 fL 79.4-94.8 MEAN CORPUSCULAR HEMOGLOBIN (BEAKER) (test 30.5 pg 25.6-32.2 dexe=825) MEAN CORPUSCULAR HEMOGLOBIN CONC (BEAKER) (test 32.5 GM/DL 32.2-35.5 urqb=182) RED CELL DISTRIBUTION WIDTH (BEAKER) (test 14.5 % 11.7-14.4 lajq=049) PLATELET COUNT (BEAKER) (test ouwi=380) 292 K/CU MM 150-450 MEAN PLATELET VOLUME (BEAKER) (test rclk=541) 10.6 fL 9.4-12.3 NUCLEATED RED BLOOD CELLS (BEAKER) (test 0 /100 WBC 0-0 dcuw=244) NEUTROPHILS RELATIVE PERCENT (BEAKER) (test 72 % tqif=503) LYMPHOCYTES RELATIVE PERCENT (BEAKER) (test 15 % bcfe=409) MONOCYTES RELATIVE PERCENT (BEAKER) (test 10 % vemg=272) EOSINOPHILS RELATIVE PERCENT (BEAKER) (test 2 % ugnd=294) BASOPHILS RELATIVE PERCENT (BEAKER) (test 1 % nnck=806) NEUTROPHILS ABSOLUTE COUNT (BEAKER) (test 3.96 K/ L 1.56-6.13 xxdl=188) LYMPHOCYTES ABSOLUTE COUNT (BEAKER) (test 0.80 K/ L 1.18-3.74 owdm=759) MONOCYTES ABSOLUTE COUNT (BEAKER) (test 0.53 K/ L 0.24-0.36 rpnu=809) EOSINOPHILS ABSOLUTE COUNT (BEAKER) (test 0.13 K/ L 0.04-0.36 qhte=816) BASOPHILS ABSOLUTE COUNT (BEAKER) (test 0.04 K/ L 0.01-0.08 qrat=490) IMMATURE GRANULOCYTES-RELATIVE PERCENT (BEAKER) 0 % 0-1 (test enca=7556) CBC W/PLT COUNT & AUTO [id number] 04:59:00 Test Item Value Reference Range Comments WHITE BLOOD CELL COUNT (BEAKER) (test ivxm=035) 6.7 K/ L 3.5-10.5 RED BLOOD CELL COUNT (BEAKER) (test mquv=853) 3.04 M/ L 3.93-5.22 HEMOGLOBIN (BEAKER) (test pgpx=798) 9.3 GM/DL 11.2-15.7 HEMATOCRIT (BEAKER) (test mvgq=909) 29.1 % 34.1-44.9 MEAN CORPUSCULAR VOLUME (BEAKER) (test vuqw=904) 95.7 fL 79.4-94.8 MEAN CORPUSCULAR HEMOGLOBIN (BEAKER) (test 30.6 pg 25.6-32.2 khch=731) MEAN CORPUSCULAR HEMOGLOBIN CONC (BEAKER) (test 32.0 GM/DL 32.2-35.5 lkut=361) RED CELL DISTRIBUTION WIDTH (BEAKER) (test 14.8 % 11.7-14.4 pvlm=911) PLATELET COUNT (BEAKER) (test yrgh=871) 296 K/CU MM 150-450 MEAN PLATELET VOLUME (BEAKER) (test zyco=288) 10.6 fL 9.4-12.3 NUCLEATED RED BLOOD CELLS (BEAKER) (test 0 /100 WBC 0-0 btfv=967) NEUTROPHILS RELATIVE PERCENT (BEAKER) (test 67 % vsxd=248) LYMPHOCYTES RELATIVE PERCENT (BEAKER) (test 19 % iyzy=221) MONOCYTES RELATIVE PERCENT (BEAKER) (test 10 % vdlu=489) EOSINOPHILS RELATIVE PERCENT (BEAKER) (test 3 % yjlw=123) BASOPHILS RELATIVE PERCENT (BEAKER) (test 1 % bpjo=461) NEUTROPHILS ABSOLUTE COUNT (BEAKER) (test 4.49 K/ L 1.56-6.13 nuth=239) LYMPHOCYTES ABSOLUTE COUNT (BEAKER) (test 1.27 K/ L 1.18-3.74 spfr=458) MONOCYTES ABSOLUTE COUNT (BEAKER) (test 0.66 K/ L 0.24-0.36 zkjz=747) EOSINOPHILS ABSOLUTE COUNT (BEAKER) (test 0.22 K/ L 0.04-0.36 qcie=950) BASOPHILS ABSOLUTE COUNT (BEAKER) (test 0.04 K/ L 0.01-0.08 exit=127) IMMATURE GRANULOCYTES-RELATIVE PERCENT (BEAKER) 0 % 0-1 (test need=4136) B-TYPE NATRIURETIC FACTOR (BNP)2018-07-03 12:21:00 Test Item Value Reference Range Comments B-TYPE NATRIURETIC PEPTIDE (BEAKER) (test 385 pg/mL 0-100 wlmd=175) BASIC METABOLIC [id number] 03:44:00 Test Item Value Reference Range Comments SODIUM (BEAKER) (test 133 meq/L 136-145 wspr=622) POTASSIUM (BEAKER) (test 4.1 meq/L 3.5-5.1 ieii=011) CHLORIDE (BEAKER) (test 103 meq/L 98-107 wxfz=627) CO2 (BEAKER) (test 22 meq/L 22-29 guoq=493) BLOOD UREA NITROGEN 12 mg/dL 7-21 (BEAKER) (test zxfu=572) CREATININE (BEAKER) (test 0.62 mg/dL 0.57-1.25 mkwb=936) GLUCOSE RANDOM (BEAKER) 102 mg/dL 70-105 (test kvrr=523) CALCIUM (BEAKER) (test 8.4 mg/dL 8.4-10.2 owem=430) EGFR (BEAKER) (test 93 mL/min/1.73 sq m ESTIMATED GFR IS NOT rxrz=0131) ACCURATE CREATININE CLEARANCE IN PREDICTING GLOMERULAR FILTRATION RATE. ESTIMATED GFR IS NOT APPLICABLE FOR DIALYSIS PATIENTS. LACTIC ACID, [id number] 03:39:00 Test Item Value Reference Range Comments LACTATE BLOOD VENOUS (2) (BEAKER) (test 0.7 mmol/L 0.5-2.2 izml=7323) CBC W/PLT COUNT & AUTO [id number] 03:22:00 Test Item Value Reference Range Comments WHITE BLOOD CELL COUNT (BEAKER) (test ncqs=389) 7.2 K/ L 3.5-10.5 RED BLOOD CELL COUNT (BEAKER) (test puiw=489) 2.87 M/ L 3.93-5.22 HEMOGLOBIN (BEAKER) (test olcs=969) 8.8 GM/DL 11.2-15.7 HEMATOCRIT (BEAKER) (test mlag=415) 27.0 % 34.1-44.9 MEAN CORPUSCULAR VOLUME (BEAKER) (test gcru=520) 94.1 fL 79.4-94.8 MEAN CORPUSCULAR HEMOGLOBIN (BEAKER) (test 30.7 pg 25.6-32.2 yqbr=339) MEAN CORPUSCULAR HEMOGLOBIN CONC (BEAKER) (test 32.6 GM/DL 32.2-35.5 cvwe=616) RED CELL DISTRIBUTION WIDTH (BEAKER) (test 14.6 % 11.7-14.4 dzyb=302) PLATELET COUNT (BEAKER) (test dpvh=575) 224 K/CU MM 150-450 MEAN PLATELET VOLUME (BEAKER) (test fhsi=822) 10.3 fL 9.4-12.3 NUCLEATED RED BLOOD CELLS (BEAKER) (test 0 /100 WBC 0-0 gueh=346) NEUTROPHILS RELATIVE PERCENT (BEAKER) (test 76 % axsx=679) LYMPHOCYTES RELATIVE PERCENT (BEAKER) (test 13 % udzv=808) MONOCYTES RELATIVE PERCENT (BEAKER) (test 9 % yhon=716) EOSINOPHILS RELATIVE PERCENT (BEAKER) (test 1 % wkpa=089) BASOPHILS RELATIVE PERCENT (BEAKER) (test 0 % yppx=648) NEUTROPHILS ABSOLUTE COUNT (BEAKER) (test 5.45 K/ L 1.56-6.13 pgnn=770) LYMPHOCYTES ABSOLUTE COUNT (BEAKER) (test 0.91 K/ L 1.18-3.74 qwts=963) MONOCYTES ABSOLUTE COUNT (BEAKER) (test 0.64 K/ L 0.24-0.36 bqiq=250) EOSINOPHILS ABSOLUTE COUNT (BEAKER) (test 0.08 K/ L 0.04-0.36 znbr=043) BASOPHILS ABSOLUTE COUNT (BEAKER) (test 0.03 K/ L 0.01-0.08 zeut=302) IMMATURE GRANULOCYTES-RELATIVE PERCENT (BEAKER) 1 % 0-1 (test nnfl=4516) RAD, CHEST, 1 VIEW, NON [id number] 00:41:00Reason for exam:->acute hypoxiaShould this be performed [...] MDReport Verified Date/Time: 2018 00:41:40 Reading Location: [address] Reading Room POCT- LACTIC ACID, [id number] 20:45:00 Test Item Value Reference Range Comments POC-LACTIC ACID, ARTERIAL 2.1 mmol/L 0.4-1.[address] ([facility]) (test thhd=9474) [facility] [address] POCT-BLOOD GASES, [id number] 20:45:00 Test Item Value Reference Range Comments TEMP, CELSIUS-POC (BEAKER) 37.0 (test ojxk=0924) FIO2-POC (BEAKER) (test TESTED AT [address] wmla=4853) [place] [id number] PH, ARTERIAL-POC (BEAKER) 7.371 7.350-7.450 (test zyfp=5219) PCO2, ARTERIAL-POC (BEAKER) 37.7 mm Hg 35.0-45.0 (test tslr=9089) PO2, ARTERIAL-POC (BEAKER) 78.0 mm Hg 80.0-90.0 (test fuuz=3621) SO2, ARTERIAL-POC (BEAKER) 95.0 % 96.0-97.0 (test iebs=8468) HCO3, ARTERIAL-POC (BEAKER) 21.9 meq/L 21.0-29.0 (test nbck=4005) BASE EXCESS, ARTERIAL-POC -3.0 meq/L -2.0-3.0 (BEAKER) (test qpqe=6424) [id number] 20:45:00 Test Item Value Reference Range Comments POC-SODIUM (BEAKER) (test 133 meq/L 135-148 TESTED AT [address] fqtr=2676) [place] [address] [id number] 20:45:00 Test Item Value Reference Range Comments POC-POTASSIUM (BEAKER) (test 3.9 meq/L 3.6-5.5 TESTED AT [address] xves=9660) [place] [address] [id number] 20:45:00 Test Item Value Reference Range Comments POC-GLUCOSE (BEAKER) (test 142 mg/dL 70-110 TESTED AT [address] ryzw=8201) [place] [address] POCT-CALCIUM [id number] 20:45:00 Test Item Value Reference Range Comments POC-CALCIUM IONIZED (BEAKER) 1.18 mmol/L 1.12-1.27 TESTED AT [address] (test kuez=3722) [place] [address] [id number] 20:45:00 Test Item Value Reference Range Comments POC-HEMATOCRIT (BEAKER) (test 28 % 36-45 TESTED AT [address] oraj=4183) [place] [address] [id number] 20:45:00 Test Item Value Reference Range Comments POC-HEMOGLOBIN (BEAKER) 9.5 g/dL 12.0-15.0 TESTED AT [address] (test buwt=3164) [place] [address]TESTED AT [place] [address] RESPIRATORY PANEL [id number] 17:58:00 Test Item Value Reference Range Comments HUMAN METAPNEUMOVIRUS (BEAKER) (test Not detected Not detected, Equivocal rzdr=9138) RHINOVIRUS (BEAKER) (test awdg=1054) Not detected Not detected, Equivocal INFLUENZA A (BEAKER) (test fuie=2241) Not detected Not detected, Equivocal INFLUENZA A (NO SUBTYPE) (test Not detected, Equivocal gdza=3411) INFLUENZA A SUBTYPE H1 (BEAKER) (test Not detected, Equivocal vtii=8330) INFLUENZA A SUBTYPE H3 (BEAKER) (test Not detected, Equivocal qlsq=1931) INFLUENZA A SUBTYPE H1-2009 (BEAKER) Not detected, Equivocal (test xzgw=4734) INFLUENZA B (BEAKER) (test ogvk=3114) Not detected Not detected, Equivocal RESPIRATORY SYNCYTIAL VIRUS (BEAKER) Not detected Not detected, Equivocal (test lrrj=6107) PARAINFLUENZA VIRUS 1 (BEAKER) (test Not detected Not detected, Equivocal mfsg=2065) PARAINFLUENZA VIRUS 2 (BEAKER) (test Not detected Not detected, Equivocal bmmk=8084) PARAINFLUENZA VIRUS 3 (BEAKER) (test Not detected Not detected, Equivocal svaq=3065) PARAINFLUENZA VIRUS 4 (BEAKER) (test Not detected Not detected, Equivocal dqpi=0832) ADENOVIRUS (BEAKER) (test xzjx=8643) Not detected Not detected, Equivocal CORONAVIRUS 229E (BEAKER) (test Not detected Not detected, Equivocal gdow=9475) CORONAVIRUS HKU1 (BEAKER) (test Not detected Not detected, Equivocal qsmx=2275) CORONAVIRUS NL63 (BEAKER) (test Not detected Not detected, Equivocal uikl=3963) CORONAVIRUS OC43 (BEAKER) (test Not detected Not detected, Equivocal mdax=4725) BORDETELLA PERTUSSIS (BEAKER) (test Not detected Not detected, Equivocal cxtw=7214) CHLAMYDOPHILA PNEUMONIAE (BEAKER) (test Not detected Not detected, Equivocal embx=0034) MYCOPLASMA PNEUMONIAE (BEAKER) (test Not detected Not detected, Equivocal wpja=9509) Other viruses and bacteria not targeted by this PCR panel cannot be excluded; therefore clinical correlation and follow up of serology, culture results, and other molecular studies is required. The results are not intended to be used as the sole means for clinical diagnosis or patient management decisions. This sample was tested at the [facility] using the [employer] FilmArray Respiratory Panel. It is FDA cleared and has been verified and approved by the [facility] for clinical use on nasal swab specimens. It is not FDA-cleared for use on bronchial wash/lavage samples. However, for this sample type, validation was performed and test characteristics were determined and approved, by [facility] for clinical use under the Clinical Laboratory Improvement Amendments (CLIA) of 1988 requirements. Therefore, FDA clearance isnot required. This laboratory is CLIA-certified and [employer] ([employer])-accredited to perform high complexity testing.RAD, CHEST, 1 VIEW, NON [id number] 15:35:00Reason for exam:->feverShould this be performed at [...] MDReport Verified Date/Time: 07/02/2018 15:35:00 Reading Location: [address] Consult Reading Room HEMOGLOBIN AND [id number] 14:58 :00 Test Item Value Reference Range Comments HEMOGLOBIN (BEAKER) (test cbyt=903) 8.9 GM/DL 11.2-15.7 HEMATOCRIT (BEAKER) (test tvmh=948) 26.5 % 34.1-44.9 RAPID INFLUENZA A&B [id number] 11:44:00 Test Item Value Reference Range Comments RAPID INFLUENZA A AG (BEAKER) (test Negative Negative, Inconclusive kgjc=0424) RAPID INFLUENZA B AG (BEAKER) (test Negative Negative, Inconclusive aqxb=2514) URINALYSIS W/ REFLEX URINE [id number] 11:38:00 Test Item Value Reference Range Comments COLOR (BEAKER) (test mwja=289) Yellow CLARITY (BEAKER) (test lxcx=002) Clear SPECIFIC GRAVITY UA (BEAKER) (test yabe=370) 1.016 1.001-1.035 PH UA (BEAKER) (test xzik=867) 6.0 5.0-8.0 PROTEIN UA (BEAKER) (test yodd=317) Negative Negative GLUCOSE UA (BEAKER) (test bior=696) Negative Negative KETONES UA (BEAKER) (test khbf=351) Negative Negative BILIRUBIN UA (BEAKER) (test hcwf=641) Negative Negative BLOOD UA (BEAKER) (test bzuj=722) Negative Negative NITRITE UA (BEAKER) (test ljxq=908) Negative Negative LEUKOCYTE ESTERASE UA (BEAKER) (test knma=405) Moderate Negative UROBILINOGEN UA (BEAKER) (test bywj=577) 0.2 mg/dL 0.2-1.0 RBC UA (BEAKER) (test jacs=108) 1 /HPF WBC UA (BEAKER) (test cqeo=024) 13 /HPF MUCUS (BEAKER) (test rule=4497) Occasional SQUAMOUS EPITHELIAL (BEAKER) (test nrhl=211) 1 /HPF SOURCE(BEAKER) (test vzqz=5732) BASIC METABOLIC [id number] 06:10:00 Test Item Value Reference Range Comments SODIUM (BEAKER) (test 133 meq/L 136-145 igrl=243) POTASSIUM (BEAKER) (test 4.2 meq/L 3.5-5.1 zipl=946) CHLORIDE (BEAKER) (test 104 meq/L 98-107 eufu=228) CO2 (BEAKER) (test 23 meq/L 22-29 fwxe=120) BLOOD UREA NITROGEN 11 mg/dL 7-21 (BEAKER) (test ivan=344) CREATININE (BEAKER) (test 0.63 mg/dL 0.57-1.25 esub=819) GLUCOSE RANDOM (BEAKER) 94 mg/dL 70-105 (test qqiy=871) CALCIUM (BEAKER) (test 8.5 mg/dL 8.4-10.2 sltc=421) EGFR (BEAKER) (test 91 mL/min/1.73 sq m ESTIMATED GFR IS NOT xklt=1632) ACCURATE CREATININE CLEARANCE IN PREDICTING GLOMERULAR FILTRATION RATE. ESTIMATED GFR IS NOT APPLICABLE FOR DIALYSIS PATIENTS. CBC W/PLT COUNT & AUTO [id number] 05:38:00 Test Item Value Reference Range Comments WHITE BLOOD CELL COUNT (BEAKER) (test zsiw=207) 7.0 K/ L 3.5-10.5 RED BLOOD CELL COUNT (BEAKER) (test dpnd=531) 3.18 M/ L 3.93-5.22 HEMOGLOBIN (BEAKER) (test nvsw=441) 9.6 GM/DL 11.2-15.7 HEMATOCRIT (BEAKER) (test mfdq=287) 29.8 % 34.1-44.9 MEAN CORPUSCULAR VOLUME (BEAKER) (test myol=202) 93.7 fL 79.4-94.8 MEAN CORPUSCULAR HEMOGLOBIN (BEAKER) (test 30.2 pg 25.6-32.2 ecmr=904) MEAN CORPUSCULAR HEMOGLOBIN CONC (BEAKER) (test 32.2 GM/DL 32.2-35.5 mavs=029) RED CELL DISTRIBUTION WIDTH (BEAKER) (test 14.7 % 11.7-14.4 fnjl=397) PLATELET COUNT (BEAKER) (test artp=441) 215 K/CU MM 150-450 MEAN PLATELET VOLUME (BEAKER) (test rrnx=524) 10.3 fL 9.4-12.3 NUCLEATED RED BLOOD CELLS (BEAKER) (test 0 /100 WBC 0-0 khek=424) NEUTROPHILS RELATIVE PERCENT (BEAKER) (test 78 % ghtm=968) LYMPHOCYTES RELATIVE PERCENT (BEAKER) (test 12 % wwyu=915) MONOCYTES RELATIVE PERCENT (BEAKER) (test 8 % khhg=034) EOSINOPHILS RELATIVE PERCENT (BEAKER) (test 2 % jwrf=417) BASOPHILS RELATIVE PERCENT (BEAKER) (test 0 % mryd=612) NEUTROPHILS ABSOLUTE COUNT (BEAKER) (test 5.43 K/ L 1.56-6.13 uvbn=487) LYMPHOCYTES ABSOLUTE COUNT (BEAKER) (test 0.81 K/ L 1.18-3.74 lvjz=978) MONOCYTES ABSOLUTE COUNT (BEAKER) (test 0.56 K/ L 0.24-0.36 fcsb=854) EOSINOPHILS ABSOLUTE COUNT (BEAKER) (test 0.11 K/ L 0.04-0.36 fpqs=008) BASOPHILS ABSOLUTE COUNT (BEAKER) (test 0.02 K/ L 0.01-0.08 hioz=601) IMMATURE GRANULOCYTES-RELATIVE PERCENT (BEAKER) 0 % 0-1 (test itlu=9640) HEMOGLOBIN AND [id number] 00:52:00 Test Item Value Reference Range Comments HEMOGLOBIN (BEAKER) (test khuv=929) 9.3 GM/DL 11.2-15.7 HEMATOCRIT (BEAKER) (test ilqu=123) 28.1 % 34.1-44.9 U/S, [id number] 11:14:00Reason for exam:->?stenosis of Aortic branches noted [...] [place] Verified Date/Time: 07/01/2018 11:14:28 Reading Location: [address] Ultrasound Reading Room HEMOGLOBIN AND [id number] 10:42:00 Test Item Value Reference Range Comments HEMOGLOBIN (BEAKER) (test tkzy=533) 7.4 GM/DL 11.2-15.7 HEMATOCRIT (BEAKER) (test bspf=736) 22.7 % 34.1-44.9 HEMOGLOBIN AND [id number] 22:49:00 Test Item Value Reference Range Comments HEMOGLOBIN (BEAKER) (test abwn=872) 7.2 GM/DL 11.2-15.7 HEMATOCRIT (BEAKER) (test qlhp=149) 23.0 % 34.1-44.9 HEMOGLOBIN AND [id number] 11:52:00 Test Item Value Reference Range Comments HEMOGLOBIN (BEAKER) (test kmaf=155) 8.4 GM/DL 11.2-15.7 HEMATOCRIT (BEAKER) (test qskv=534) 28.5 % 34.1-44.9 BASIC METABOLIC [id number] 05:57:00 Test Item Value Reference Range Comments SODIUM (BEAKER) (test 136 meq/L 136-145 hkdv=615) POTASSIUM (BEAKER) (test 3.9 meq/L 3.5-5.1 syhk=507) CHLORIDE (BEAKER) (test 105 meq/L 98-107 jxgu=649) CO2 (BEAKER) (test 25 meq/L 22-29 mfen=038) BLOOD UREA NITROGEN 15 mg/dL 7-21 (BEAKER) (test cqrk=336) CREATININE (BEAKER) (test 0.73 mg/dL 0.57-1.25 amux=130) GLUCOSE RANDOM (BEAKER) 107 mg/dL 70-105 (test tfri=514) CALCIUM (BEAKER) (test 8.2 mg/dL 8.4-10.2 dzzu=200) EGFR (BEAKER) (test 77 mL/min/1.73 sq m ESTIMATED GFR IS NOT kwxs=0873) ACCURATE CREATININE CLEARANCE IN PREDICTING GLOMERULAR FILTRATION RATE. ESTIMATED GFR IS NOT APPLICABLE FOR DIALYSIS PATIENTS. CBC (HEMOGRAM ONLY)2018-06-30 05:18:00 Test Item Value Reference Range Comments WHITE BLOOD CELL COUNT (BEAKER) (test qcvp=864) 5.6 K/ L 3.5-10.5 RED BLOOD CELL COUNT (BEAKER) (test rrrz=397) 2.62 M/ L 3.93-5.22 HEMOGLOBIN (BEAKER) (test dypy=025) 8.1 GM/DL 11.2-15.7 HEMATOCRIT (BEAKER) (test zqvh=188) 25.0 % 34.1-44.9 MEAN CORPUSCULAR VOLUME (BEAKER) (test rzdf=970) 95.4 fL 79.4-94.8 MEAN CORPUSCULAR HEMOGLOBIN (BEAKER) (test 30.9 pg 25.6-32.2 juji=282) MEAN CORPUSCULAR HEMOGLOBIN CONC (BEAKER) (test 32.4 GM/DL 32.2-35.5 mbjq=219) RED CELL DISTRIBUTION WIDTH (BEAKER) (test 14.8 % 11.7-14.4 jksn=233) PLATELET COUNT (BEAKER) (test pqls=882) 208 K/CU MM 150-450 MEAN PLATELET VOLUME (BEAKER) (test flte=344) 10.4 fL 9.4-12.3 NUCLEATED RED BLOOD CELLS (BEAKER) (test 0 /100 WBC 0-0 azlk=309) [id number] 06:00:00 Test Item Value Reference Range Comments MAGNESIUM (BEAKER) (test iztr=689) 2.0 mg/dL 1.6-2.6 BASIC METABOLIC [id number] 06:00:00 Test Item Value Reference Range Comments SODIUM (BEAKER) (test 141 meq/L 136-145 nego=337) POTASSIUM (BEAKER) (test 3.7 meq/L 3.5-5.1 xtud=785) CHLORIDE (BEAKER) (test 110 meq/L 98-107 klir=714) CO2 (BEAKER) (test 24 meq/L 22-29 dpdc=260) BLOOD UREA NITROGEN 8 mg/dL 7-21 (BEAKER) (test mkhp=311) CREATININE (BEAKER) (test 0.70 mg/dL 0.57-1.25 yaid=556) GLUCOSE RANDOM (BEAKER) 93 mg/dL 70-105 (test hkly=524) CALCIUM (BEAKER) (test 8.5 mg/dL 8.4-10.2 zeft=814) EGFR (BEAKER) (test 81 mL/min/1.73 sq m ESTIMATED GFR IS NOT gjkn=7383) ACCURATE CREATININE CLEARANCE IN PREDICTING GLOMERULAR FILTRATION RATE. ESTIMATED GFR IS NOT APPLICABLE FOR DIALYSIS PATIENTS. CBC (HEMOGRAM ONLY)2018-06-29 05:27:00 Test Item Value Reference Range Comments WHITE BLOOD CELL COUNT (BEAKER) (test qsdr=467) 4.5 K/ L 3.5-10.5 RED BLOOD CELL COUNT (BEAKER) (test afhy=608) 3.09 M/ L 3.93-5.22 HEMOGLOBIN (BEAKER) (test koty=013) 9.4 GM/DL 11.2-15.7 HEMATOCRIT (BEAKER) (test xjcf=667) 28.8 % 34.1-44.9 MEAN CORPUSCULAR VOLUME (BEAKER) (test uewd=938) 93.2 fL 79.4-94.8 MEAN CORPUSCULAR HEMOGLOBIN (BEAKER) (test 30.4 pg 25.6-32.2 puxd=268) MEAN CORPUSCULAR HEMOGLOBIN CONC (BEAKER) (test 32.6 GM/DL 32.2-35.5 wyml=761) RED CELL DISTRIBUTION WIDTH (BEAKER) (test 14.9 % 11.7-14.4 huef=252) PLATELET COUNT (BEAKER) (test enys=245) 205 K/CU MM 150-450 MEAN PLATELET VOLUME (BEAKER) (test jzdy=226) 10.7 fL 9.4-12.3 NUCLEATED RED BLOOD CELLS (BEAKER) (test 0 /100 WBC 0-0 znai=663) RAD, ABDOMEN/KUB, 1 VIEW [id number] 23:50:00Reason for exam:->evaluate for obstruction; acute onset abdominal pain with decreased flatusFINAL REPORT CLINICAL HISTORY: [place] pain with decreased flatus, concern for bowel [...] Verified Date/Time: 06/28/2018 23:50:09 Reading Location : [address] Reading Room Electronically signedby: LIANE ARORA M.D. on 06/28/2018 11:50 PMHEMOGLOBIN AND [id number] 13:24:00 Test Item Value Reference Range Comments HEMOGLOBIN (BEAKER) (test juqi=065) 9.6 GM/DL 11.2-15.7 HEMATOCRIT (BEAKER) (test lsij=218) 29.3 % 34.1-44.9 BASIC METABOLIC [id number] 05:37:00 Test Item Value Reference Range Comments SODIUM (BEAKER) (test 141 meq/L 136-145 gcxp=152) POTASSIUM (BEAKER) (test 4.0 meq/L 3.5-5.1 opgp=957) CHLORIDE (BEAKER) (test 110 meq/L 98-107 agzf=090) CO2 (BEAKER) (test 23 meq/L 22-29 kuig=103) BLOOD UREA NITROGEN 13 mg/dL 7-21 (BEAKER) (test fxop=744) CREATININE (BEAKER) (test 0.73 mg/dL 0.57-1.25 xvoi=336) GLUCOSE RANDOM (BEAKER) 100 mg/dL 70-105 (test ippx=754) CALCIUM (BEAKER) (test 8.4 mg/dL 8.4-10.2 kbxz=297) EGFR (BEAKER) (test 77 mL/min/1.73 sq m ESTIMATED GFR IS NOT ejfg=4731) ACCURATE CREATININE CLEARANCE IN PREDICTING GLOMERULAR FILTRATION RATE. ESTIMATED GFR IS NOT APPLICABLE FOR DIALYSIS PATIENTS. B-TYPE NATRIURETIC FACTOR (BNP)2018-06-28 04:57:00 Test Item Value Reference Range Comments B-TYPE NATRIURETIC PEPTIDE (BEAKER) (test 291 pg/mL 0-100 ixtr=351) [id number] 04:52:00 Test Item Value Reference Range Comments MAGNESIUM (BEAKER) (test ngrz=076) 2.3 mg/dL 1.6-2.6 CBC (HEMOGRAM ONLY)2018-06-28 04:37:00 Test Item Value Reference Range Comments WHITE BLOOD CELL COUNT 6.2 K/ L 3.5-10.5 (BEAKER) (test jcsp=403) RED BLOOD CELL COUNT (BEAKER) 3.36 M/ L 3.93-5.22 (test wjfp=982) HEMOGLOBIN (BEAKER) (test 10.2 GM/DL 11.2-15.7 omjb=036) HEMATOCRIT (BEAKER) (test 31.1 % 34.1-44.9 xich=128) MEAN CORPUSCULAR VOLUME 92.6 fL 79.4-94.8 Discordant MCV results (BEAKER) (test gpek=410) compared to previous results; clinical correlation required. MEAN CORPUSCULAR HEMOGLOBIN 30.4 pg 25.6-32.2 (BEAKER) (test myfg=074) MEAN CORPUSCULAR HEMOGLOBIN 32.8 GM/DL 32.2-35.5 CONC (BEAKER) (test aeqy=773) RED CELL DISTRIBUTION WIDTH 15.4 % 11.7-14.4 (BEAKER) (test uipx=224) PLATELET COUNT (BEAKER) (test 198 K/CU MM 150-450 xlhk=181) MEAN PLATELET VOLUME (BEAKER) 10.8 fL 9.4-12.3 (test vdkx=167) NUCLEATED RED BLOOD CELLS 0 /100 WBC 0-0 (BEAKER) (test gluf=167) HEMOGLOBIN AND [id number] 20:46:00 Test Item Value Reference Range Comments HEMOGLOBIN (BEAKER) (test tclr=753) 10.5 GM/DL 11.2-15.7 HEMATOCRIT (BEAKER) (test qcbf=472) 31.5 % 34.1-44.9 RAD, CHEST, 1 VIEW, NON [id number] 15:18:00Reason for exam:-> dyspneaShould this be performed at the bedside?->YesFINAL REPORT CLINICAL HISTORY: dyspnea TECHNIQUE: 1 view of the chest. COMPARISON: None IMPRESSION: There are no focal infiltrates or effusions. The cardiomediastinal silhouetteis magnified by technique. The osseous structures appear intact. Signed: Ashleigh Aburto MDReport Verified Date/Time: 06/27/2018 15 :18:20 Reading Location: [facility] C0W Consult Reading Room HEMOGLOBIN AND [id number] 14:44:00 Test Item Value Reference Range Comments HEMOGLOBIN (BEAKER) (test gnmo=014) 8.6 GM/DL 11.2-15.7 HEMATOCRIT (BEAKER) (test uqkd=874) 26.5 % 34.1-44.9 POCT-LACTIC ACID, [id number] 13:49:00 Test Item Value Reference Range Comments POC-LACTIC ACID, VENOUS 0.7 mmol/L 0.9-1.7 TESTED AT [facility] [address] (BEAKER) (test bddn=4696) [place] [address] [id number] 10:25:00 Test Item Value Reference Range Comments PROTIME (BEAKER) (test qkwb=168) 14.0 seconds 11.7-14.7 INR (BEAKER) (test edut=520) 1.1 <=5.9 PARTIAL THROMBOPLASTIN TIME (BEAKER) (test 24.6 seconds 22.5-36.0 lzwb=047) RECOMMENDED COUMADIN/WARFARIN INR THERAPY RANGESSTANDARD DOSE: 2.0 - 3.0 Includes: PROPHYLAXIS forvenous thrombosis, systemic embolization; TREATMENT for venous thrombosis and/or pulmonary embolus.HIGH RISK: Target INR is 2.5-3.5 for patients with mechanical heart valves.HEMOGLOBIN AND [id number] 09 :55:00 Test Item Value Reference Range Comments HEMOGLOBIN (BEAKER) (test demg=545) 7.1 GM/DL 11.2-15.7 HEMATOCRIT (BEAKER) (test iyff=844) 22.4 % 34.1-44.9 CBC (HEMOGRAM ONLY)2018-06-27 06:28:00 Test Item Value Reference Range Comments WHITE BLOOD CELL COUNT (BEAKER) (test wvae=614) 6.2 K/ L 3.5-10.5 RED BLOOD CELL COUNT (BEAKER) (test lsfd=241) 2.21 M/ L 3.93-5.22 HEMOGLOBIN (BEAKER) (test oail=987) 6.7 GM/DL 11.2-15.7 HEMATOCRIT (BEAKER) (test hbhm=271) 23.4 % 34.1-44.9 MEAN CORPUSCULAR VOLUME (BEAKER) (test xhes=077) 105.9 fL 79.4-94.8 MEAN CORPUSCULAR HEMOGLOBIN (BEAKER) (test 30.3 pg 25.6-32.2 mrik=800) MEAN CORPUSCULAR HEMOGLOBIN CONC (BEAKER) (test 28.6 GM/DL 32.2-35.5 ekkc=728) RED CELL DISTRIBUTION WIDTH (BEAKER) (test 14.1 % 11.7-14.4 nztc=891) PLATELET COUNT (BEAKER) (test ypys=198) 180 K/CU MM 150-450 MEAN PLATELET VOLUME (BEAKER) (test dmbu=767) 10.9 fL 9.4-12.3 NUCLEATED RED BLOOD CELLS (BEAKER) (test 0 /100 WBC 0-0 wfbt=767) BASIC METABOLIC [id number] 06:28:00 Test Item Value Reference Range Comments SODIUM (BEAKER) (test 137 meq/L 136-145 jnkb=117) POTASSIUM (BEAKER) (test 4.3 meq/L 3.5-5.1 bcsa=738) CHLORIDE (BEAKER) (test 110 meq/L 98-107 xmek=685) CO2 (BEAKER) (test 20 meq/L 22-29 oyxm=502) BLOOD UREA NITROGEN 31 mg/dL 7-21 (BEAKER) (test pjbe=326) CREATININE (BEAKER) (test 0.72 mg/dL 0.57-1.25 cbjc=454) GLUCOSE RANDOM (BEAKER) 130 mg/dL 70-105 (test qunx=893) CALCIUM (BEAKER) (test 7.3 mg/dL 8.4-10.2 wdah=421) EGFR (BEAKER) (test 78 mL/min/1.73 sq m ESTIMATED GFR IS NOT cfat=0880) ACCURATE CREATININE CLEARANCE IN PREDICTING GLOMERULAR FILTRATION RATE. ESTIMATED GFR IS NOT APPLICABLE FOR DIALYSIS PATIENTS. HEPATIC FUNCTION [id number] 06:28:00 Test Item Value Reference Range Comments TOTAL PROTEIN (BEAKER) (test asyz=303) 4.4 gm/dL 6.0-8.3 ALBUMIN (BEAKER) (test kkjc=0669) 2.8 g/dL 3.5-5.0 BILIRUBIN TOTAL (BEAKER) (test jtqm=932) 0.2 mg/dL 0.2-1.2 BILIRUBIN DIRECT (BEAKER) (test zxcf=371) 0.1 mg/dL 0.1-0.5 ALKALINE PHOSPHATASE (BEAKER) (test mcqx=844) 15 U/L 40-150 AST (SGOT) (BEAKER) (test tuts=299) 14 U/L 5-34 ALT (SGPT) (BEAKER) (test qzkl=943) 12 U/L 6-55 [id number] 06:27:00 Test Item Value Reference Range Comments MAGNESIUM (BEAKER) (test nrbo=429) 1.8 mg/dL 1.6-2.6
[2019-03-24] MEDS ORDERED: NA CHLORIDE 0.9% 500 ML ONE (07:28)
[2019-03-24] MEDS ORDERED: FLUMAZENIL 0.1 MG/ML (5 mL VIAL) IV ONE (07:48)
[2019-03-24] MEDS ORDERED: ATROPINE SULF 1 MG/10 ML SYR IV ONE (07:48)
[2019-03-24] MEDS ORDERED: MIDAZOLAM HCL 5 MG/5 ML INJ ONE ×2 (07:48→07:49)
[2019-03-24 08:40] VITALS: TEMP 97
[2019-03-24 10:19] VITALS: BP 129/65; O2SAT 97
--- NOTE | 2019-03-24 10:34 | EKG ---
Test Date: 2019-03-24 Test Time: 09:08:18 [employer] Officer: JACQUIE MEASUREMENT RESULTS: Intervals: Rate: 57 SC: 196 QRSD: 84 QT: 492 QTc: 478 Mikana: P: 90 SC: 196 QRS: 9 T: 138 INTERPRETIVE STATEMENTS: Sinus bradycardia with occasional premature ventricular complexes ST & T wave abnormality, consider inferior ischemia ST & T wave abnormality, consider anterolateral ischemia Prolonged QT Abnormal ECG Compared to ECG 02/23/2019 12:14:32 Ventricular premature complex(es) now present ST (T wave) deviation now present Possible ischemia now present Prolonged QT interval now present Atrial flutter no longer present Myocardial infarct finding no longer present Electronically Signed On 03-24-19 10:33:28 PEDORTHIST by Thuan Carpenter
--- NOTE | 2019-03-24 19:02 | OP ---
Surgeon: Thuan Carpenter MD The patient was admitted to my service as an outpatient on 03/24/2019. She was admitted to the chemistry laboratory technician for a direct current cardioversion. Indication: Atrial fibrillation with rapid ventricular response with symptoms that has failed medica l therapy. The patient was prepped and draped in the routine sterile fashion. She was given a total of 7 mg of Versed IV push for total sedation. She received 1 shock, 100 joules, and converted from atrial fibrillation to sinus rhythm with occasional PVC. There were no complications or blood loss. Postoperative Diagnosis: Successful cardioversion of atrial fibrillation to sinus rhythm. The patie nt will go home on her home medication, which include Sotalol 80 b.i.d., Cartia 240 mg daily, as well as Eliquis. She will see me in 2 weeks. She will go home after she wakes up. MARCIA/JADE Voice ID: [id number] Report ID: [id number]
== END 2019-03-24 09:58 | disposition home health service (06) ==
LOC: CCL 06:39
DX: I48.19 Other persistent atrial fibrillation (principal); I11.0 Hypertensive heart disease with heart failure; I50.32 Chronic diastolic (congestive) heart failure; E78.5 Hyperlipidemia, unspecified; J44.9 Chronic obstructive pulmonary disease, unspecified
CPT/HCPCS: 93005; 85025; 80048; 36415; 85610; 85730; 92960; J2250 ×2; J7040

== ENCOUNTER 2020-01-28 08:01 | Day surgery (SDC) | payer OTHER, MEDICARE ==
[2020-01-26 16:31] LABS: Protime INR 1.19
[2020-01-26 16:32] LABS: Absolute Lymphocytes (CBC) 1.5 K/uL (0.7-4.9); Basophils % 1.2 % (0-1.3); Hematocrit 40.8 % (36.0-45.0); Lymphocytes % 26.8 % (15.3-44.8); MPV 9.7 fL (7.6-11.3); RBC Red Blood Cell Count 4.39 M/uL (3.86-4.86)
--- NOTE | 2020-01-26 16:46 | RAD REPORT ---
EXAM DESCRIPTION: RAD - Chest Pa And Lat (2 Views) - 01/26/2020 4:14 pm CLINICAL HISTORY: pre op, pending cardiac catheterization COMPARISON: February 2019 TECHNIQUE: Frontal and lateral views of the chest were obtained. FINDINGS: The lungs are clear. Interstitial pattern matches comparison. Heart size is normal, decre ased from comparison. Vasculature within normal limits. No pleural effusion or pneumothorax seen. No acute bony finding noted. No acute aortic finding. Tortuosity is similar to comparison. IMPRESSION: No acute cardiopulmonary process. Cardiac size has decreased from February 2019.
[~2020-01-28 08:01] MED LIST: NA CHLORIDE 0.9% 500 ML ONE
--- OUTSIDE RECORDS SUMMARY | 2020-01-28 08:20 | XMS REPORT | Clinical Summary ---
:1940 Author Organization [facility] Address [address] [place] [address] Care Team Providers Name Role Phone System, Not In Primary Care Provider Unavailable Allergies No Known Allergies Medications Medication Sig Dispensed Refills Start Date End Date Status dilTIAZem (CARDIZEM CD) Take 240 mg by 0 Active 240 MG 24 hr capsule mouth daily. fenofibrate (TRICOR) 145 Take 145 mg by 0 Active MG tablet mouth daily. lisinopril Take 20 mg by 0 Activ e (PRINIVIL,ZESTRIL) 20 MG mouth 2 (two) tablet times daily. multivitamin capsule Take 1 capsule by 0 Active mouth daily. cholecalciferol (VITAMIN Take 1,000 Units 0 Active D3) 1,000 unit tablet by mouth daily. omega-3 fatty acids-fish Take 1 g by mouth 0 Active oil 340-1,000 mg Cap per daily. capsule tiotropium (SPIRIVA) 18 Inhale by mouth 0 Active mcg inhalation capsule via inhaler daily. fluticasone-salmeterol Inhale 1 puff by 0 Active (ADVAIR) 500-50 mcg/dose mouth via inhaler diskus inhaler 2 (two) times daily. albuterol (PROVENTIL) Take 2.5 mg by 0 Active 2.5 mg /3 mL (0.083 %) nebulization as nebulizer solution needed for Wheezing. hydroCHLOROthiazide Take 12.5 mg by 0 Active (MICROZIDE) 12.5 mg mouth daily. capsule rosuvastatin (CRESTOR) Take 10 mg by 0 Active 10 MG tablet mouth daily. pantoprazole (PROTONIX) Take 1 tablet (40 30 tablet 0 07/12/19 19 Active 40 MG tablet mg total) by mouth daily. 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 Monthly or less 06/27/2018 How many drinks containing alcohol do you have on a 1 or 2 06/27/2018 typical day when you are drinking? How often do you have six or more drinks on one Not asked occasion? Sex Assigned at Date Recorded Not on file Last Filed Vital Signs Not on file Plan of Treatment Not on file Results Not on fileafter 01/27/2019 Insurance Payer Benefit Plan / Subscriber ID Effective Dates Phone Addre ss Type Group MEDICARE MEDICARE A B [id number] 2003-Presen Medicare t MCR [employer]/[place] [id number] 2018-Present Medigap SUPPLEMENT/[employer] Advance Directives For more information, please contact: [phone] Code Status Date Activated Date Inactivated Comments Partial Code 06/28/2018 7:44 AM 07/10/2018 5:33 PM This code status was determined by: Patient Drug Protocol After Arrest Occurs? Yes Mechanical Ventilation with Intubation? No Bag/Mask? No Internal/External Pacemaker? No Transfer to Critical Care? No Chest Compressions? No Defibrillation/Cardioversion? No Full Code 06/27/2018 1:38 AM 06/28/2018 7:44 AM This code status was determined by: Patient
--- OUTSIDE RECORDS SUMMARY | 2020-01-28 08:21 | XMS REPORT | Continuity of Care Document ---
:1940 Author Organization [facility] t Address [facility]3 [address] [place] [address] Care Team Providers Name Role Phone System, Not In Primary Care Physician Unavailable MANOLO Attending Clinician Unavailable MANOLO Admitting Clinician Unavailable Advance Directives Directive Decision Effective Date Termination Date Comments Sour ce Partial Code This Yes 2018-06-28 2018-07-10 [facility] - code status was 00:00:00 00:00:00 Medical C enter determined by: Patient Drug Protocol After Arrest Occurs? Yes Mechanical Ventilation with Intubation? No Bag/Mask? No Internal/External Pacemaker? No Transfer to Critical Care? No Chest Compressions? No Defibrillation/Card ioversion? 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 Social History Social Habit Start Date Stop Date Quantity Comments Source History of tobacco Cigarette Smoker [facility] - use [facility] History SDOH [facility] - Alcohol Binge [facility] Sex Assigned At [facility] Cigarettes smoked 2018-07-03 2018-07-[address] [facility] - current (pack per 00:00:00 00:00:00 Medical Center day) - Reported Cigarette 2018-07-03 2018-07-[address] [facility] - pack-years 00:00:00 00:00:00 Medical Center Alcohol intake 2018-07-03 2018-07-03 Current drinker CARISA marinelli Luniesha - 00:00:00 00:00:00 of alcohol Medical Center (finding) History [facility] 2018-06-27 2018-06-[address] [facility] - Alcohol Frequency 00:00:00 00:00:00 Medical Center History [facility] 2018-06-27 2018-06-27 1 [facility] - Alcohol Std Drinks 00:00:00 00:00:00 [facility] Smoking Status Start Date Stop Date Source Former smoker 2018-07-03 00:00:00 2018-07-03 00:00:00 [facility] Medications Ordered Filled Start Stop Current Ordering Indication Dosage Frequency Signature Comments Components Source Medication Medication Date Date Medication? Clinician (SIG) Name Name pantoprazol Yes 40mg QD Take [address] [facility] 3-29 tablet (40 [facility] - (PROTONIX) 00:00: mg total) Me dical 40 MG 00 by mouth Center tablet daily. dilTIAZem Yes 240mg QD Take [address] (CARDIZEM 3-28 mg by [facility] - CD) 240 MG 15:33: mouth Medica l 24 hr 25 daily. Center capsule fenofibrate Yes 145mg QD Take [address] (TRICOR) 3-28 mg by [facility] - 145 MG 15:33: mouth Medical tablet 25 daily. [place] lisinopril Yes 20mg Q.5D Take [address] (PRINIVIL,Z 3-28 by mouth 2 Samantha kes - ESTRIL) 20 15:33: (two) Medica l MG tablet 25 times Center daily. multivitami Yes 1{capsu QD Take [address] n capsule 3-28 le} capsule by Luke s - 15:33: mouth Medical 25 daily. Center cholecalcif Yes 1000U QD Take 1,[address] cameron 3-28 Units by LuEachpal - (VITAMIN 15:33: mouth Medical D3) 1,000 25 daily. Center unit tablet omega-3 Yes 1g QD Take [address] fatty 3-28 by mouth [facility]ukes - acids-fish 15:33: daily. Medic al oil 25 Center 340-1,000 mg Cap per capsule tiotropium 0 Yes QD Inhale by [facility] (SPIRIVA) 3-28 mouth via [facility]ukes - 18 mcg 15:33: inhaler Medical inhalation 25 daily. Center capsule fluticasone Yes 1{puff} Q.5D Inhale [address] -salmeterol 3-28 puff by [facility]ukes - (ADVAIR) 15:33: mouth via Medi jose 500-50 25 inhaler 2 Center mcg/dose (two) diskus times inhaler daily. albuterol Yes 2.5mg Take 2.[address] (PROVENTIL) 3-28 mg by [facility]ukes - 2.5 mg /3 15:33: nebulizati Me dical mL (0.083 25 on as Center %) needed for nebulizer Wheezing. solution hydroCHLORO Yes 12.5mg QD Take 12.[address] thiazide 3-28 mg by [facility]ukes - (MICROZIDE) 15:33: mouth Medic al 12.5 mg 25 daily. Center capsule rosuvastati Yes 10mg QD Take [address] n (CRESTOR) 3-28 by mouth Luke s - 10 MG 15:33: daily. Medical tablet 25 Center Procedures This patient has no known procedures. Results Test Description Test Time Test Comments Results Result Comments Source BLOOD CULTURE 2018-07-10 20:01:00 Test Item Value Reference Range Interpretation Comme nts CULTURE (BEAKER) (test code = 1095) No growth in 5 days BLOOD [id number] 20:01:00 Test Item Value Reference Range Interpretation Comments CULTURE (BEAKER) (test No growth in 5 days code = 1095) BASIC METABOLIC [id number] 07:48:00 Test Item Value Reference Range Interpretation Comments SODIUM (BEAKER) 134 meq/L 136-145 L (test code = 381) POTASSIUM (BEAKER) 4.9 meq/L 3.5-5.1 (test code = 379) CHLORIDE (BEAKER) 101 meq/L 98-107 (test code = 382) CO2 (BEAKER) (test 26 meq/L 22-29 code = 355) BLOOD UREA NITROGEN 27 mg/dL 7-21 H (BEAKER) (test code = 354) CREATININE (BEAKER) 0.67 mg/dL 0.57-1.25 (test code = 358) GLUCOSE RANDOM 161 mg/dL 70-105 H (BEAKER) (test code = 652) CALCIUM (BEAKER) 9.1 mg/dL 8.4-10.2 (test code = 697) EGFR (BEAKER) (test 85 mL/min/1.73 ESTIMA YANELI GFR IS code = 1092) sq m NOT ACCURATE CREATININE CLEARANCE IN PREDICTING GLOMERULAR FILTRATION RATE . ESTIMATED GFR I S NOT APPLICABLE FOR DIALYSIS PATIEN TS. CBC (HEMOGRAM ONLY)2018-07-09 06:36:00 Test Item Value Reference Range Interpretation Comments WHITE BLOOD CELL COUNT (BEAKER) 5.9 K/ L 3.5-10.5 (test code = 775) RED BLOOD CELL COUNT (BEAKER) 3.11 M/ L 3.93-5.22 L (test code = 761) HEMOGLOBIN (BEAKER) (test code = 9.7 GM/DL 11.2-15.7 L 410) HEMATOCRIT (BEAKER) (test code = 29.9 % 34.1-44.9 L 411) MEAN CORPUSCULAR VOLUME (BEAKER) 96.1 fL 79.4-94.8 H (test code = 753) MEAN CORPUSCULAR HEMOGLOBIN 31.2 pg 25.6-32.2 (BEAKER) (test code = 751) MEAN CORPUSCULAR HEMOGLOBIN CONC 32.4 GM/DL 32.2-35.5 (BEAKER) (test code = 752) RED CELL DISTRIBUTION WIDTH 14.9 % 11.7-14.4 H (BEAKER) (test code = 412) PLATELET COUNT (BEAKER) (test 422 K/CU MM 150-450 code = 756) MEAN PLATELET VOLUME (BEAKER) 10.4 fL 9.4-12.3 (test code = 754) NUCLEATED RED BLOOD CELLS 0 /100 WBC 0-0 (BEAKER) (test code = 413) BASIC METABOLIC [id number] 05:52:00 Test Item Value Reference Range Interpretation Comments SODIUM (BEAKER) 134 meq/L 136-145 L (test code = 381) POTASSIUM (BEAKER) 4.3 meq/L 3.5-5.1 (test code = 379) CHLORIDE (BEAKER) 100 meq/L 98-107 (test code = 382) CO2 (BEAKER) (test 25 meq/L 22-29 code = 355) BLOOD UREA NITROGEN 21 mg/dL 7-21 (BEAKER) (test code = 354) CREATININE (BEAKER) 0.74 mg/dL 0.57-1.25 (test code = 358) GLUCOSE RANDOM 176 mg/dL 70-105 H (BEAKER) (test code = 652) CALCIUM (BEAKER) 9.2 mg/dL 8.4-10.2 (test code = 697) EGFR (BEAKER) (test 76 mL/min/1.73 ESTIMA YANELI GFR IS code = 1092) sq m NOT ACCURATE CREATININE CLEARANCE IN PREDICTING GLOMERULAR FILTRATION RATE . ESTIMATED GFR I S NOT APPLICABLE FOR DIALYSIS PATIEN TS. CBC (HEMOGRAM ONLY)2018-07-08 05:16:00 Test Item Value Reference Range Interpretation Comments WHITE BLOOD CELL COUNT (BEAKER) 5.7 K/ L 3.5-10.5 (test code = 775) RED BLOOD CELL COUNT (BEAKER) 3.26 M/ L 3.93-5.22 L (test code = 761) HEMOGLOBIN (BEAKER) (test code = 10.1 GM/DL 11.2-15.7 L 410) HEMATOCRIT (BEAKER) (test code = 31.5 % 34.1-44.9 L 411) MEAN CORPUSCULAR VOLUME (BEAKER) 96.6 fL 79.4-94.8 H (test code = 753) MEAN CORPUSCULAR HEMOGLOBIN 31.0 pg 25.6-32.2 (BEAKER) (test code = 751) MEAN CORPUSCULAR HEMOGLOBIN CONC 32.1 GM/DL 32.2-35.5 L (BEAKER) (test code = 752) RED CELL DISTRIBUTION WIDTH 14.7 % 11.7-14.4 H (BEAKER) (test code = 412) PLATELET COUNT (BEAKER) (test 386 K/CU MM 150-450 code = 756) MEAN PLATELET VOLUME (BEAKER) 10.7 fL 9.4-12.3 (test code = 754) NUCLEATED RED BLOOD CELLS 0 /100 WBC 0-0 (BEAKER) (test code = 413) BLOOD GAS, [id number] 18:38:00 Test Item Value Reference Range Interpretation Comments PH ARTERIAL (BEAKER) (test code = 7.49 7.35-7.45 H 383) PCO2 ARTERIAL (BEAKER) (test code 37 mmHg 35-45 = 384) PO2 ARTERIAL (BEAKER) (test code = 76 mmHg 80-90 L 385) O2 SATURATION ARTERIAL (BEAKER) 95.8 % 96.0-97.0 L (test code = 386) HCO3 ARTERIAL (BEAKER) (test code 27 mmol/L 21-29 = 388) BASE EXCESS ARTERIAL (BEAKER) 3.8 mmol/L -2.0-3.0 H (test code = 387) PATIENT TEMPERATURE (BEAKER) (test 37.7 C code = 1818) FIO2 (BEAKER) (test code = 1819) 28.0 % B-TYPE NATRIURETIC FACTOR (BNP)2018-07-06 18:34:00 Test Item Value Reference Range Interpretation Comments B-TYPE NATRIURETIC PEPTIDE (BEAKER) 248 pg/mL 0-100 H (test code = 700) RAD, CHEST, 1 VIEW, NON [id number] 17:51:00Reason for exam:->SOBShould this be performed at [...] pulmonary edema or acute bony abnormality. Signed: Deuce Arora MDReport Verified Date/Time: 07/06/2018 17:51:18 Reading Location: [address] Reading Room BASI METABOLIC [id number] 06:27:00 Test Item Value Reference Range Interpretation Comments SODIUM (BEAKER) 133 meq/L 136-145 L (test code = 381) POTASSIUM (BEAKER) 3.4 meq/L 3.5-5.1 L Specimen slightly (test code = 379) hemolyzed CHLORIDE (BEAKER) 97 meq/L 98-107 L (test code = 382) CO2 (BEAKER) (test 25 meq/L 22-29 code = 355) BLOOD UREA NITROGEN 14 mg/dL 7-21 (BEAKER) (test code = 354) CREATININE (BEAKER) 0.70 mg/dL 0.57-1.25 Specimen slightly (test code = 358) hemolyzed GLUCOSE RANDOM 100 mg/dL 70-105 (BEAKER) (test code = 652) CALCIUM (BEAKER) 9.0 mg/dL 8.4-10.2 (test code = 697) EGFR (BEAKER) (test 81 mL/min/1.73 ESTIMA YANELI GFR IS code = 1092) sq m NOT ACCURATE CREATININE CLEARANCE IN PREDICTING GLOMERULAR FILTRATION RATE . ESTIMATED GFR I S NOT APPLICABLE FOR DIALYSIS PATIEN TS. CBC W/PLT COUNT & AUTO [id number] 05:54:00 Test Item Value Reference Range Interpretation Comments WHITE BLOOD CELL COUNT (BEAKER) 6.9 K/ L 3.5-10.5 (test code = 775) RED BLOOD CELL COUNT (BEAKER) 3.18 M/ L 3.93-5.22 L (test code = 761) HEMOGLOBIN (BEAKER) (test code = 9.7 GM/DL 11.2-15.7 L 410) HEMATOCRIT (BEAKER) (test code = 30.2 % 34.1-44.9 L 411) MEAN CORPUSCULAR VOLUME (BEAKER) 95.0 fL 79.4-94.8 H (test code = 753) MEAN CORPUSCULAR HEMOGLOBIN 30.5 pg 25.6-32.2 (BEAKER) (test code = 751) MEAN CORPUSCULAR HEMOGLOBIN CONC 32.1 GM/DL 32.2-35.5 L (BEAKER) (test code = 752) RED CELL DISTRIBUTION WIDTH 14.3 % 11.7-14.4 (BEAKER) (test code = 412) PLATELET COUNT (BEAKER) (test 327 K/CU MM 150-450 code = 756) MEAN PLATELET VOLUME (BEAKER) 10.5 fL 9.4-12.3 (test code = 754) NUCLEATED RED BLOOD CELLS 0 /100 WBC 0-0 (BEAKER) (test code = 413) NEUTROPHILS RELATIVE PERCENT 74 % (BEAKER) (test code = 429) LYMPHOCYTES RELATIVE PERCENT 15 % (BEAKER) (test code = 430) MONOCYTES RELATIVE PERCENT 8 % (BEAKER) (test code = 431) EOSINOPHILS RELATIVE PERCENT 2 % (BEAKER) (test code = 432) BASOPHILS RELATIVE PERCENT 1 % (BEAKER) (test code = 437) NEUTROPHILS ABSOLUTE COUNT 5.06 K/ L 1.56-6.13 (BEAKER) (test code = 670) LYMPHOCYTES ABSOLUTE COUNT 1.04 K/ L 1.18-3.74 L (BEAKER) (test code = 414) MONOCYTES ABSOLUTE COUNT (BEAKER) 0.58 K/ L 0.24-0.36 H (test code = 415) EOSINOPHILS ABSOLUTE COUNT 0.12 K/ L 0.04-0.36 (BEAKER) (test code = 416) BASOPHILS ABSOLUTE COUNT (BEAKER) 0.04 K/ L 0.01-0.08 (test code = 417) IMMATURE GRANULOCYTES-RELATIVE 0 % 0-1 PERCENT (BEAKER) (test code = 2801) [id number] 09:53:00 Test Item Value Reference Range Interpretation Comments PROCALCITONIN (BEAKER) (test code 0.12 ng/mL <0.05 H = 3036) SEPSIS RISK (ng/mL)Low: 0.05-0.50Intermediate: 0.51-2.00High: >=2.01CBC W/PLT COUNT & AUTO [id number] 06:33:00 Test Item Value Reference Range Interpretation Comments WHITE BLOOD CELL COUNT (BEAKER) 5.5 K/ L 3.5-10.5 (test code = 775) RED BLOOD CELL COUNT (BEAKER) 2.85 M/ L 3.93-5.22 L (test code = 761) HEMOGLOBIN (BEAKER) (test code = 8.7 GM/DL 11.2-15.7 L 410) HEMATOCRIT (BEAKER) (test code = 26.8 % 34.1-44.9 L 411) MEAN CORPUSCULAR VOLUME (BEAKER) 94.0 fL 79.4-94.8 (test code = 753) MEAN CORPUSCULAR HEMOGLOBIN 30.5 pg 25.6-32.2 (BEAKER) (test code = 751) MEAN CORPUSCULAR HEMOGLOBIN CONC 32.5 GM/DL 32.2-35.5 (BEAKER) (test code = 752) RED CELL DISTRIBUTION WIDTH 14.5 % 11.7-14.4 H (BEAKER) (test code = 412) PLATELET COUNT (BEAKER) (test 292 K/CU MM 150-450 code = 756) MEAN PLATELET VOLUME (BEAKER) 10.6 fL 9.4-12.3 (test code = 754) NUCLEATED RED BLOOD CELLS 0 /100 WBC 0-0 (BEAKER) (test code = 413) NEUTROPHILS RELATIVE PERCENT 72 % (BEAKER) (test code = 429) LYMPHOCYTES RELATIVE PERCENT 15 % (BEAKER) (test code = 430) MONOCYTES RELATIVE PERCENT 10 % (BEAKER) (test code = 431) EOSINOPHILS RELATIVE PERCENT 2 % (BEAKER) (test code = 432) BASOPHILS RELATIVE PERCENT 1 % (BEAKER) (test code = 437) NEUTROPHILS ABSOLUTE COUNT 3.96 K/ L 1.56-6.13 (BEAKER) (test code = 670) LYMPHOCYTES ABSOLUTE COUNT 0.80 K/ L 1.18-3.74 L (BEAKER) (test code = 414) MONOCYTES ABSOLUTE COUNT (BEAKER) 0.53 K/ L 0.24-0.36 H (test code = 415) EOSINOPHILS ABSOLUTE COUNT 0.13 K/ L 0.04-0.36 (BEAKER) (test code = 416) BASOPHILS ABSOLUTE COUNT (BEAKER) 0.04 K/ L 0.01-0.08 (test code = 417) IMMATURE GRANULOCYTES-RELATIVE 0 % 0-1 PERCENT (BEAKER) (test code = 2801) CBC W/PLT COUNT & AUTO [id number] 04:59:00 Test Item Value Reference Range Interpretation Comments WHITE BLOOD CELL COUNT (BEAKER) 6.7 K/ L 3.5-10.5 (test code = 775) RED BLOOD CELL COUNT (BEAKER) 3.04 M/ L 3.93-5.22 L (test code = 761) HEMOGLOBIN (BEAKER) (test code = 9.3 GM/DL 11.2-15.7 L 410) HEMATOCRIT (BEAKER) (test code = 29.1 % 34.1-44.9 L 411) MEAN CORPUSCULAR VOLUME (BEAKER) 95.7 fL 79.4-94.8 H (test code = 753) MEAN CORPUSCULAR HEMOGLOBIN 30.6 pg 25.6-32.2 (BEAKER) (test code = 751) MEAN CORPUSCULAR HEMOGLOBIN CONC 32.0 GM/DL 32.2-35.5 L (BEAKER) (test code = 752) RED CELL DISTRIBUTION WIDTH 14.8 % 11.7-14.4 H (BEAKER) (test code = 412) PLATELET COUNT (BEAKER) (test 296 K/CU MM 150-450 code = 756) MEAN PLATELET VOLUME (BEAKER) 10.6 fL 9.4-12.3 (test code = 754) NUCLEATED RED BLOOD CELLS 0 /100 WBC 0-0 (BEAKER) (test code = 413) NEUTROPHILS RELATIVE PERCENT 67 % (BEAKER) (test code = 429) LYMPHOCYTES RELATIVE PERCENT 19 % (BEAKER) (test code = 430) MONOCYTES RELATIVE PERCENT 10 % (BEAKER) (test code = 431) EOSINOPHILS RELATIVE PERCENT 3 % (BEAKER) (test code = 432) BASOPHILS RELATIVE PERCENT 1 % (BEAKER) (test code = 437) NEUTROPHILS ABSOLUTE COUNT 4.49 K/ L 1.56-6.13 (BEAKER) (test code = 670) LYMPHOCYTES ABSOLUTE COUNT 1.27 K/ L 1.18-3.74 (BEAKER) (test code = 414) MONOCYTES ABSOLUTE COUNT (BEAKER) 0.66 K/ L 0.24-0.36 H (test code = 415) EOSINOPHILS ABSOLUTE COUNT 0.22 K/ L 0.04-0.36 (BEAKER) (test code = 416) BASOPHILS ABSOLUTE COUNT (BEAKER) 0.04 K/ L 0.01-0.08 (test code = 417) IMMATURE GRANULOCYTES-RELATIVE 0 % 0-1 PERCENT (BEAKER) (test code = 2801) B-TYPE NATRIURETIC FACTOR (BNP)2018-07-03 12:21:00 Test Item Value Reference Range Interpretation Comments B-TYPE NATRIURETIC PEPTIDE (BEAKER) 385 pg/mL 0-100 H (test code = 700) BASIC METABOLIC [id number] 03:44:00 Test Item Value Reference Range Interpretation Comments SODIUM (BEAKER) 133 meq/L 136-145 L (test code = 381) POTASSIUM (BEAKER) 4.1 meq/L 3.5-5.1 (test code = 379) CHLORIDE (BEAKER) 103 meq/L 98-107 (test code = 382) CO2 (BEAKER) (test 22 meq/L 22-29 code = 355) BLOOD UREA NITROGEN 12 mg/dL 7-21 (BEAKER) (test code = 354) CREATININE (BEAKER) 0.62 mg/dL 0.57-1.25 (test code = 358) GLUCOSE RANDOM 102 mg/dL 70-105 (BEAKER) (test code = 652) CALCIUM (BEAKER) 8.4 mg/dL 8.4-10.2 (test code = 697) EGFR (BEAKER) (test 93 mL/min/1.73 ESTIMA YANELI GFR IS code = 1092) sq m NOT ACCURATE CREATININE CLEARANCE IN PREDICTING GLOMERULAR FILTRATION RATE . ESTIMATED GFR I S NOT APPLICABLE FOR DIALYSIS PATIEN TS. LACTIC ACID, [id number] 03:39:00 Test Item Value Reference Range Interpretation Comments LACTATE BLOOD VENOUS (2) (BEAKER) 0.7 mmol/L 0.5-2.2 (test code = 2872) CBC W/PLT COUNT & AUTO [id number] 03:22:00 Test Item Value Reference Range Interpretation Comments WHITE BLOOD CELL COUNT (BEAKER) 7.2 K/ L 3.5-10.5 (test code = 775) RED BLOOD CELL COUNT (BEAKER) 2.87 M/ L 3.93-5.22 L (test code = 761) HEMOGLOBIN (BEAKER) (test code = 8.8 GM/DL 11.2-15.7 L 410) HEMATOCRIT (BEAKER) (test code = 27.0 % 34.1-44.9 L 411) MEAN CORPUSCULAR VOLUME (BEAKER) 94.1 fL 79.4-94.8 (test code = 753) MEAN CORPUSCULAR HEMOGLOBIN 30.7 pg 25.6-32.2 (BEAKER) (test code = 751) MEAN CORPUSCULAR HEMOGLOBIN CONC 32.6 GM/DL 32.2-35.5 (BEAKER) (test code = 752) RED CELL DISTRIBUTION WIDTH 14.6 % 11.7-14.4 H (BEAKER) (test code = 412) PLATELET COUNT (BEAKER) (test 224 K/CU MM 150-450 code = 756) MEAN PLATELET VOLUME (BEAKER) 10.3 fL 9.4-12.3 (test code = 754) NUCLEATED RED BLOOD CELLS 0 /100 WBC 0-0 (BEAKER) (test code = 413) NEUTROPHILS RELATIVE PERCENT 76 % (BEAKER) (test code = 429) LYMPHOCYTES RELATIVE PERCENT 13 % (BEAKER) (test code = 430) MONOCYTES RELATIVE PERCENT 9 % (BEAKER) (test code = 431) EOSINOPHILS RELATIVE PERCENT 1 % (BEAKER) (test code = 432) BASOPHILS RELATIVE PERCENT 0 % (BEAKER) (test code = 437) NEUTROPHILS ABSOLUTE COUNT 5.45 K/ L 1.56-6.13 (BEAKER) (test code = 670) LYMPHOCYTES ABSOLUTE COUNT 0.91 K/ L 1.18-3.74 L (BEAKER) (test code = 414) MONOCYTES ABSOLUTE COUNT (BEAKER) 0.64 K/ L 0.24-0.36 H (test code = 415) EOSINOPHILS ABSOLUTE COUNT 0.08 K/ L 0.04-0.36 (BEAKER) (test code = 416) BASOPHILS ABSOLUTE COUNT (BEAKER) 0.03 K/ L 0.01-0.08 (test code = 417) IMMATURE GRANULOCYTES-RELATIVE 1 % 0-1 PERCENT (BEAKER) (test code = 2801) RAD, CHEST, 1 VIEW, NON [id number] 00:41:00Reason for exam:->acute hypoxiaShould this be performed [...] no pneumothorax or acute bony abnormality. Signed: Deuce Arora MDReport Verified Date/Time: 07/03/2018 00:41:40 Reading Location: [address] Reading Room [facility] signed by: DEUCE ARORA M.D. on 07/03/2018 12:41 AMPOCT-LACTIC ACID, [id number] 20:45:00 Test Item Value Reference Range Interpretation Comments POC-LACTIC ACID, 2.1 mmol/L 0.4-1.3 H TESTED AT [facility] [address] ARTERIAL (BEAKER) [place] (test code = 2804) [address] POCT-BLOOD GASES, [id number] 20:45:00 Test Item Value Reference Range Interpretation Comments TEMP, CELSIUS-POC 37.0 (BEAKER) (test code = 1834) FIO2-POC (BEAKER) TESTED AT [place] [address] (test code = 1835) [place] [facility] [address] PH, ARTERIAL-POC 7.371 7.350-7.450 (BEAKER) (test code = 1836) PCO2, ARTERIAL-POC 37.7 mm Hg 35.0-45.0 (BEAKER) (test code = 1837) PO2, ARTERIAL-POC 78.0 mm Hg 80.0-90.0 L (BEAKER) (test code = 1838) SO2, ARTERIAL-POC 95.0 % 96.0-97.0 L (BEAKER) (test code = 1839) HCO3, ARTERIAL-POC 21.9 meq/L 21.0-29.0 (BEAKER) (test code = 1840) BASE EXCESS, -3.0 meq/L -2.0-3.0 L ARTERIAL-POC (BEAKER) (test code = 1841) [id number] 20:45:00 Test Item Value Reference Range Interpretation Comments POC-SODIUM (BEAKER) 133 meq/L 135-148 L TESTED A T [place] [address] (test code = 1542) [place] [facility] [address] [id number] 20:45:00 Test Item Value Reference Range Interpretation Comments POC-POTASSIUM 3.9 meq/L 3.6-5.5 TESTED AT [facility] 6720 (BEAKER) (test code [facility] [address] = 1540) [id number] 20:45:00 Test Item Value Reference Range Interpretation Comments POC-GLUCOSE (BEAKER) 142 mg/dL 70-110 H TESTED AT [facility] 67 (test code = 1855) [place] [facility] [place] [address] POCT-CALCIUM [id number] 20:45:00 Test Item Value Reference Range Interpretation Comments POC-CALCIUM IONIZED 1.18 mmol/L 1.12-1.27 TESTED A T [place] [address] (BEAKER) (test code = [facility] [place] [facility] 1536) [address] [id number] 20:45:00 Test Item Value Reference Range Interpretation Comments POC-HEMATOCRIT 28 % 36-45 L TESTED AT [place] [address] (BEAKER) (test code = [facility] [place] [facility] [address]678) [id number] 20:45:00 Test Item Value Reference Range Interpretation Comments POC-HEMOGLOBIN 9.5 g/dL 12.0-15.0 L TESTED AT [place] [address] (BEAKER) (test code = [facility] [place] [facility] 1852) [id number] AT [place] [address] [address] [facility] [place] [address] RESPIRATORY PANEL [id number] 17:58:00 Test Item Value Reference Range Interpretation Comments HUMAN METAPNEUMOVIRUS Not detected Not detected, (BEAKER) (test code = 2683) Equivocal RHINOVIRUS (BEAKER) (test Not detected Not detected, code = 2684) Equivocal INFLUENZA A (BEAKER) (test Not detected Not detected, code = 2685) Equivocal INFLUENZA A (NO SUBTYPE) Not detected, (test code = 3606) Equivocal INFLUENZA A SUBTYPE H1 Not detected, (BEAKER) (test code = 2686) Equivocal INFLUENZA A SUBTYPE H3 Not detected, (BEAKER) (test code = 2687) Equivocal INFLUENZA A SUBTYPE H1-2009 Not detected, (BEAKER) (test code = 3198) Equivocal INFLUENZA B (BEAKER) (test Not detected Not detected, code = 2688) Equivocal RESPIRATORY SYNCYTIAL VIRUS Not detected Not detected, (BEAKER) (test code = 3199) Equivocal PARAINFLUENZA VIRUS 1 Not detected Not detected, (BEAKER) (test code = 2691) Equivocal PARAINFLUENZA VIRUS 2 Not detected Not detected, (BEAKER) (test code = 2692) Equivocal PARAINFLUENZA VIRUS 3 Not detected Not detected, (BEAKER) (test code = 2693) Equivocal PARAINFLUENZA VIRUS 4 Not detected Not detected, (BEAKER) (test code = 3200) Equivocal ADENOVIRUS (BEAKER) (test Not detected Not detected, code = 2694) Equivocal CORONAVIRUS 229E (BEAKER) Not detected Not detected, (test code = 3201) Equivocal CORONAVIRUS HKU1 (BEAKER) Not detected Not detected, (test code = 3202) Equivocal CORONAVIRUS NL63 (BEAKER) Not detected Not detected, (test code = 3203) Equivocal CORONAVIRUS OC43 (BEAKER) Not detected Not detected, (test code = 3204) Equivocal BORDETELLA PERTUSSIS Not detected Not detected, (BEAKER) (test code = 3205) Equivocal CHLAMYDOPHILA PNEUMONIAE Not detected Not detected, (BEAKER) (test code = 3206) Equivocal MYCOPLASMA PNEUMONIAE Not detected Not detected, (BEAKER) (test code = 3207) Equivocal Other viruses and bacteria not targeted by this PCR panel cannot be excluded; therefore clinical correlation and follow up of serology, culture results, and other molecular studies is required. The results are not intended to be used as the sole means for clinical diagnosis or patient management decisions. This sample was tested at the [facility] using the [employer] Respiratory Panel. It is FDA cleared and has been verified and approved by the [facility] for clinical use on nasal swab specimens. It is not FDA-cleared for use on bronchial wash/lavage samples. However, for this sample type, validation was performed and test characteristics were determined and approved, by [facility] for clinical use under the Clinical Laboratory Improvement Amendments (CLIA) of 1988 requirements. Therefore, FDA clearance isnot required. This laboratory is CLIA- certified and [employer] [place] [employer] ([employer])-accredited to perform high complexity testing.RAD, CHEST, 1 VIEW, NON [id number] 15:35:00Reason for exam:->feverShould this be performed at [...] MDReport Verified Date/Time: 07/02/2018 15:35:00 Reading Location: [address] Consult Reading Room HEMOGLOBIN AND [id number] 14:58:00 Test Item Value Reference Range Interpretation Comments HEMOGLOBIN (BEAKER) (test code = 8.9 GM/DL 11.2-15.7 L 410) HEMATOCRIT (BEAKER) (test code = 26.5 % 34.1-44.9 L 411) RAPID INFLUENZA A&B [id number] 11:44:00 Test Item Value Reference Range Interpretation Comments RAPID INFLUENZA A AG (BEAKER) Negative Negative, Inconclusive (test code = 1622) RAPID INFLUENZA B AG (BEAKER) Negative Negative, Inconclusive (test code = 1623) URINALYSIS W/ REFLEX URINE [id number] 11:38:00 Test Item Value Reference Range Interpretation Comments COLOR (BEAKER) (test code = 470) Yellow CLARITY (BEAKER) (test code = 469) Clear SPECIFIC GRAVITY UA (BEAKER) (test 1.016 1.001-1.035 code = 468) PH UA (BEAKER) (test code = 467) 6.0 5.0-8.0 PROTEIN UA (BEAKER) (test code = Negative Negative 464) GLUCOSE UA (BEAKER) (test code = Negative Negative 365) KETONES UA (BEAKER) (test code = Negative Negative 371) BILIRUBIN UA (BEAKER) (test code = Negative Negative 462) BLOOD UA (BEAKER) (test code = Negative Negative 461) NITRITE UA (BEAKER) (test code = Negative Negative 465) LEUKOCYTE ESTERASE UA (BEAKER) Moderate Negative A (test code = 466) UROBILINOGEN UA (BEAKER) (test 0.2 mg/dL 0.2-1.0 code = 463) RBC UA (BEAKER) (test code = 519) 1 /HPF WBC UA (BEAKER) (test code = 520) 13 /HPF MUCUS (BEAKER) (test code = 1574) Occasional SQUAMOUS EPITHELIAL (BEAKER) (test 1 /HPF code = 516) SOURCE(BEAKER) (test code = 2795) BASIC METABOLIC [id number] 06:10:00 Test Item Value Reference Range Interpretation Comments SODIUM (BEAKER) 133 meq/L 136-145 L (test code = 381) POTASSIUM (BEAKER) 4.2 meq/L 3.5-5.1 (test code = 379) CHLORIDE (BEAKER) 104 meq/L 98-107 (test code = 382) CO2 (BEAKER) (test 23 meq/L 22-29 code = 355) BLOOD UREA NITROGEN 11 mg/dL 7-21 (BEAKER) (test code = 354) CREATININE (BEAKER) 0.63 mg/dL 0.57-1.25 (test code = 358) GLUCOSE RANDOM 94 mg/dL 70-105 (BEAKER) (test code = 652) CALCIUM (BEAKER) 8.5 mg/dL 8.4-10.2 (test code = 697) EGFR (BEAKER) (test 91 mL/min/1.73 ESTIMA YANELI GFR IS code = 1092) sq m NOT ACCURATE CREATININE CLEARANCE IN PREDICTING GLOMERULAR FILTRATION RATE . ESTIMATED GFR I S NOT APPLICABLE FOR DIALYSIS PATIEN TS. CBC W/PLT COUNT & AUTO [id number] 05:38:00 Test Item Value Reference Range Interpretation Comments WHITE BLOOD CELL COUNT (BEAKER) 7.0 K/ L 3.5-10.5 (test code = 775) RED BLOOD CELL COUNT (BEAKER) 3.18 M/ L 3.93-5.22 L (test code = 761) HEMOGLOBIN (BEAKER) (test code = 9.6 GM/DL 11.2-15.7 L 410) HEMATOCRIT (BEAKER) (test code = 29.8 % 34.1-44.9 L 411) MEAN CORPUSCULAR VOLUME (BEAKER) 93.7 fL 79.4-94.8 (test code = 753) MEAN CORPUSCULAR HEMOGLOBIN 30.2 pg 25.6-32.2 (BEAKER) (test code = 751) MEAN CORPUSCULAR HEMOGLOBIN CONC 32.2 GM/DL 32.2-35.5 (BEAKER) (test code = 752) RED CELL DISTRIBUTION WIDTH 14.7 % 11.7-14.4 H (BEAKER) (test code = 412) PLATELET COUNT (BEAKER) (test 215 K/CU MM 150-450 code = 756) MEAN PLATELET VOLUME (BEAKER) 10.3 fL 9.4-12.3 (test code = 754) NUCLEATED RED BLOOD CELLS 0 /100 WBC 0-0 (BEAKER) (test code = 413) NEUTROPHILS RELATIVE PERCENT 78 % (BEAKER) (test code = 429) LYMPHOCYTES RELATIVE PERCENT 12 % (BEAKER) (test code = 430) MONOCYTES RELATIVE PERCENT 8 % (BEAKER) (test code = 431) EOSINOPHILS RELATIVE PERCENT 2 % (BEAKER) (test code = 432) BASOPHILS RELATIVE PERCENT 0 % (BEAKER) (test code = 437) NEUTROPHILS ABSOLUTE COUNT 5.43 K/ L 1.56-6.13 (BEAKER) (test code = 670) LYMPHOCYTES ABSOLUTE COUNT 0.81 K/ L 1.18-3.74 L (BEAKER) (test code = 414) MONOCYTES ABSOLUTE COUNT (BEAKER) 0.56 K/ L 0.24-0.36 H (test code = 415) EOSINOPHILS ABSOLUTE COUNT 0.11 K/ L 0.04-0.36 (BEAKER) (test code = 416) BASOPHILS ABSOLUTE COUNT (BEAKER) 0.02 K/ L 0.01-0.08 (test code = 417) IMMATURE GRANULOCYTES-RELATIVE 0 % 0-1 PERCENT (BEAKER) (test code = 2801) HEMOGLOBIN AND [id number] 00:52:00 Test Item Value Reference Range Interpretation Comments HEMOGLOBIN (BEAKER) (test code = 9.3 GM/DL 11.2-15.7 L 410) HEMATOCRIT (BEAKER) (test code = 28.1 % 34.1-44.9 L 411) U/S, [id number] 11:14:00Reason for exam:->?stenosis of Aortic branches noted [...] angiogram is recommended if clinically appropriate. Signed: Yudith Lucero Verified Date/Time: 07/01/2018 11:14:28 Reading Location: [address] Ultrasound Reading Room HEMOGLOBIN AND [id number] 10:42:00 Test Item Value Reference Range Interpretation Comments HEMOGLOBIN (BEAKER) (test code = 7.4 GM/DL 11.2-15.7 L 410) HEMATOCRIT (BEAKER) (test code = 22.7 % 34.1-44.9 L 411) HEMOGLOBIN AND [id number] 22:49:00 Test Item Value Reference Range Interpretation Comments HEMOGLOBIN (BEAKER) (test code = 7.2 GM/DL 11.2-15.7 L 410) HEMATOCRIT (BEAKER) (test code = 23.0 % 34.1-44.9 L 411) HEMOGLOBIN AND [id number] 11:52:00 Test Item Value Reference Range Interpretation Comments HEMOGLOBIN (BEAKER) (test code = 8.4 GM/DL 11.2-15.7 L 410) HEMATOCRIT (BEAKER) (test code = 28.5 % 34.1-44.9 L 411) BASIC METABOLIC [id number] 05:57:00 Test Item Value Reference Range Interpretation Comments SODIUM (BEAKER) 136 meq/L 136-145 (test code = 381) POTASSIUM (BEAKER) 3.9 meq/L 3.5-5.1 (test code = 379) CHLORIDE (BEAKER) 105 meq/L 98-107 (test code = 382) CO2 (BEAKER) (test 25 meq/L 22-29 code = 355) BLOOD UREA NITROGEN 15 mg/dL 7-21 (BEAKER) (test code = 354) CREATININE (BEAKER) 0.73 mg/dL 0.57-1.25 (test code = 358) GLUCOSE RANDOM 107 mg/dL 70-105 H (BEAKER) (test code = 652) CALCIUM (BEAKER) 8.2 mg/dL 8.4-10.2 L (test code = 697) EGFR (BEAKER) (test 77 mL/min/1.73 ESTIMA YANELI GFR IS code = 1092) sq m NOT ACCURATE CREATININE CLEARANCE IN PREDICTING GLOMERULAR FILTRATION RATE . ESTIMATED GFR I S NOT APPLICABLE FOR DIALYSIS PATIEN TS. CBC (HEMOGRAM ONLY)2018-06-30 05:18:00 Test Item Value Reference Range Interpretation Comments WHITE BLOOD CELL COUNT (BEAKER) 5.6 K/ L 3.5-10.5 (test code = 775) RED BLOOD CELL COUNT (BEAKER) 2.62 M/ L 3.93-5.22 L (test code = 761) HEMOGLOBIN (BEAKER) (test code = 8.1 GM/DL 11.2-15.7 L 410) HEMATOCRIT (BEAKER) (test code = 25.0 % 34.1-44.9 L 411) MEAN CORPUSCULAR VOLUME (BEAKER) 95.4 fL 79.4-94.8 H (test code = 753) MEAN CORPUSCULAR HEMOGLOBIN 30.9 pg 25.6-32.2 (BEAKER) (test code = 751) MEAN CORPUSCULAR HEMOGLOBIN CONC 32.4 GM/DL 32.2-35.5 (BEAKER) (test code = 752) RED CELL DISTRIBUTION WIDTH 14.8 % 11.7-14.4 H (BEAKER) (test code = 412) PLATELET COUNT (BEAKER) (test 208 K/CU MM 150-450 code = 756) MEAN PLATELET VOLUME (BEAKER) 10.4 fL 9.4-12.3 (test code = 754) NUCLEATED RED BLOOD CELLS 0 /100 WBC 0-0 (BEAKER) (test code = 413) [id number] 06:00:00 Test Item Value Reference Range Interpretation Comments MAGNESIUM (BEAKER) (test code = 2.0 mg/dL 1.6-2.6 627) BASIC METABOLIC [id number] 06:00:00 Test Item Value Reference Range Interpretation Comments SODIUM (BEAKER) 141 meq/L 136-145 (test code = 381) POTASSIUM (BEAKER) 3.7 meq/L 3.5-5.1 (test code = 379) CHLORIDE (BEAKER) 110 meq/L 98-107 H (test code = 382) CO2 (BEAKER) (test 24 meq/L 22-29 code = 355) BLOOD UREA NITROGEN 8 mg/dL 7-21 (BEAKER) (test code = 354) CREATININE (BEAKER) 0.70 mg/dL 0.57-1.25 (test code = 358) GLUCOSE RANDOM 93 mg/dL 70-105 (BEAKER) (test code = 652) CALCIUM (BEAKER) 8.5 mg/dL 8.4-10.2 (test code = 697) EGFR (BEAKER) (test 81 mL/min/1.73 ESTIMA YANELI GFR IS code = 1092) sq m NOT ACCURATE CREATININE CLEARANCE IN PREDICTING GLOMERULAR FILTRATION RATE . ESTIMATED GFR I S NOT APPLICABLE FOR DIALYSIS PATIEN TS. CBC (HEMOGRAM ONLY)2018-06-29 05:27:00 Test Item Value Reference Range Interpretation Comments WHITE BLOOD CELL COUNT (BEAKER) 4.5 K/ L 3.5-10.5 (test code = 775) RED BLOOD CELL COUNT (BEAKER) 3.09 M/ L 3.93-5.22 L (test code = 761) HEMOGLOBIN (BEAKER) (test code = 9.4 GM/DL 11.2-15.7 L 410) HEMATOCRIT (BEAKER) (test code = 28.8 % 34.1-44.9 L 411) MEAN CORPUSCULAR VOLUME (BEAKER) 93.2 fL 79.4-94.8 (test code = 753) MEAN CORPUSCULAR HEMOGLOBIN 30.4 pg 25.6-32.2 (BEAKER) (test code = 751) MEAN CORPUSCULAR HEMOGLOBIN CONC 32.6 GM/DL 32.2-35.5 (BEAKER) (test code = 752) RED CELL DISTRIBUTION WIDTH 14.9 % 11.7-14.4 H (BEAKER) (test code = 412) PLATELET COUNT (BEAKER) (test 205 K/CU MM 150-450 code = 756) MEAN PLATELET VOLUME (BEAKER) 10.7 fL 9.4-12.3 (test code = 754) NUCLEATED RED BLOOD CELLS 0 /100 WBC 0-0 (BEAKER) (test code = 413) RAD, ABDOMEN/KUB, 1 VIEW [id number] 23:50:00Reason for exam:->evaluate for obstruction; acute onset [...] There is no acute bony abnormality. Signed: Deuce Arora MDReport Verified Date/Time: 06/28/2018 23:50:09 Reading Location: [address] Reading Room Electronically signedby: DEUCE ARORA M.D. on 06/28/2018 11:50 PMHEMOGLOBIN AND [id number] 13:24:00 Test Item Value Reference Range Interpretation Comments HEMOGLOBIN (BEAKER) (test code = 9.6 GM/DL 11.2-15.7 L 410) HEMATOCRIT (BEAKER) (test code = 29.3 % 34.1-44.9 L 411) BASIC METABOLIC [id number] 05:37:00 Test Item Value Reference Range Interpretation Comments SODIUM (BEAKER) 141 meq/L 136-145 (test code = 381) POTASSIUM (BEAKER) 4.0 meq/L 3.5-5.1 (test code = 379) CHLORIDE (BEAKER) 110 meq/L 98-107 H (test code = 382) CO2 (BEAKER) (test 23 meq/L 22-29 code = 355) BLOOD UREA NITROGEN 13 mg/dL 7-21 (BEAKER) (test code = 354) CREATININE (BEAKER) 0.73 mg/dL 0.57-1.25 (test code = 358) GLUCOSE RANDOM 100 mg/dL 70-105 (BEAKER) (test code = 652) CALCIUM (BEAKER) 8.4 mg/dL 8.4-10.2 (test code = 697) EGFR (BEAKER) (test 77 mL/min/1.73 ESTIMA YANELI GFR IS code = 1092) sq m NOT ACCURATE CREATININE CLEARANCE IN PREDICTING GLOMERULAR FILTRATION RATE . ESTIMATED GFR I S NOT APPLICABLE FOR DIALYSIS PATIEN TS. B-TYPE NATRIURETIC FACTOR (BNP)2018-06-28 04:57:00 Test Item Value Reference Range Interpretation Comments B-TYPE NATRIURETIC PEPTIDE (BEAKER) 291 pg/mL 0-100 H (test code = 700) [id number] 04:52:00 Test Item Value Reference Range Interpretation Comments MAGNESIUM (BEAKER) (test code = 2.3 mg/dL 1.6-2.6 627) CBC (HEMOGRAM ONLY)2018-06-28 04:37:00 Test Item Value Reference Range Interpretation Comments WHITE BLOOD CELL COUNT 6.2 K/ L 3.5-10.5 (BEAKER) (test code = 775) RED BLOOD CELL COUNT 3.36 M/ L 3.93-5.22 L (BEAKER) (test code = 761) HEMOGLOBIN (BEAKER) 10.2 GM/DL 11.2-15.7 L (test code = 410) HEMATOCRIT (BEAKER) 31.1 % 34.1-44.9 L (test code = 411) MEAN CORPUSCULAR 92.6 fL 79.4-94.8 Discordant MCV VOLUME (BEAKER) (test result s compared to code = 753) previous result s; clinical correl ation required. MEAN CORPUSCULAR 30.4 pg 25.6-32.2 HEMOGLOBIN (BEAKER) (test code = 751) MEAN CORPUSCULAR 32.8 GM/DL 32.2-35.5 HEMOGLOBIN CONC (BEAKER) (test code = 752) RED CELL DISTRIBUTION 15.4 % 11.7-14.4 H WIDTH (BEAKER) (test code = 412) PLATELET COUNT 198 K/CU MM 150-450 (BEAKER) (test code = 756) MEAN PLATELET VOLUME 10.8 fL 9.4-12.3 (BEAKER) (test code = 754) NUCLEATED RED BLOOD 0 /100 WBC 0-0 CELLS (BEAKER) (test code = 413) HEMOGLOBIN AND [id number] 20:46:00 Test Item Value Reference Range Interpretation Comments HEMOGLOBIN (BEAKER) (test code = 10.5 GM/DL 11.2-15.7 L 410) HEMATOCRIT (BEAKER) (test code = 31.5 % 34.1-44.9 L 411) RAD, CHEST, 1 VIEW, NON [id number] 15:18:00Reason for exam:- >dyspneaShould this be performed at the bedside?->YesFINAL REPORT CLINICAL HISTORY: dyspnea TECHNIQUE: 1 view of the chest. COMPAR ASHA: None IMPRESSION: There are no focal infiltrates or effusions. The cardiomediastinal silhouetteis magnified by technique. The osseous structures appear intact. Signed: Ashleigh Aburto MDReport Verified Date/Time: 06/27/2018 15:18:20 Reading Location: [address] Consult Reading Room HEMOGLOBIN AND HEMATOCRIT 2018-06-27 14:44:00 Test Item Value Reference Range Interpretation Comments HEMOGLOBIN (BEAKER) (test code = 8.6 GM/DL 11.2-15.7 L 410) HEMATOCRIT (BEAKER) (test code = 26.5 % 34.1-44.9 L 411) POCT-LACTIC ACID, [id number] 13:49:00 Test Item Value Reference Range Interpretation Comments POC-LACTIC ACID, 0.7 mmol/L 0.9-1.7 L TESTED AT [facility] [address] (BEAKER) (test [place] code = 2805) [address] [id number] 10:25:00 Test Item Value Reference Range Interpretation Comments PROTIME (BEAKER) (test code = 14.0 seconds 11.7-14.7 759) INR (BEAKER) (test code = 370) 1.1 <=5.9 PARTIAL THROMBOPLASTIN TIME 24.6 seconds 22.5-36.0 (BEAKER) (test code = 760) RECOMMENDED COUMADIN/WARFARIN INR THERAPY RANGESSTANDARD DOSE: 2.0 - 3.0 Includes: PROPHYLAXIS forvenous thrombosis, systemic embolization; TREATMENT for venous thrombosis and/or pulmonary embolus.HIGH RISK: Target INR is 2.5-3.5 for patients with mechanical heart valves.HEMOGLOBIN AND [id number] 09:55:00 Test Item Value Reference Range Interpretation Comments HEMOGLOBIN (BEAKER) (test code = 7.1 GM/DL 11.2-15.7 L 410) HEMATOCRIT (BEAKER) (test code = 22.4 % 34.1-44.9 L 411) CBC (HEMOGRAM ONLY)2018-06-27 06:28:00 Test Item Value Reference Range Interpretation Comments WHITE BLOOD CELL COUNT (BEAKER) 6.2 K/ L 3.5-10.5 (test code = 775) RED BLOOD CELL COUNT (BEAKER) 2.21 M/ L 3.93-5.22 L (test code = 761) HEMOGLOBIN (BEAKER) (test code = 6.7 GM/DL 11.2-15.7 L 410) HEMATOCRIT (BEAKER) (test code = 23.4 % 34.1-44.9 L 411) MEAN CORPUSCULAR VOLUME (BEAKER) 105.9 fL 79.4-94.8 H (test code = 753) MEAN CORPUSCULAR HEMOGLOBIN 30.3 pg 25.6-32.2 (BEAKER) (test code = 751) MEAN CORPUSCULAR HEMOGLOBIN CONC 28.6 GM/DL 32.2-35.5 L (BEAKER) (test code = 752) RED CELL DISTRIBUTION WIDTH 14.1 % 11.7-14.4 (BEAKER) (test code = 412) PLATELET COUNT (BEAKER) (test 180 K/CU MM 150-450 code = 756) MEAN PLATELET VOLUME (BEAKER) 10.9 fL 9.4-12.3 (test code = 754) NUCLEATED RED BLOOD CELLS 0 /100 WBC 0-0 (BEAKER) (test code = 413) BASIC METABOLIC [id number] 06:28:00 Test Item Value Reference Range Interpretation Comments SODIUM (BEAKER) 137 meq/L 136-145 (test code = 381) POTASSIUM (BEAKER) 4.3 meq/L 3.5-5.1 (test code = 379) CHLORIDE (BEAKER) 110 meq/L 98-107 H (test code = 382) CO2 (BEAKER) (test 20 meq/L 22-29 L code = 355) BLOOD UREA NITROGEN 31 mg/dL 7-21 H (BEAKER) (test code = 354) CREATININE (BEAKER) 0.72 mg/dL 0.57-1.25 (test code = 358) GLUCOSE RANDOM 130 mg/dL 70-105 H (BEAKER) (test code = 652) CALCIUM (BEAKER) 7.3 mg/dL 8.4-10.2 L (test code = 697) EGFR (BEAKER) (test 78 mL/min/1.73 ESTIMA YANELI GFR IS code = 1092) sq m NOT ACCURATE CREATININE CLEARANCE IN PREDICTING GLOMERULAR FILTRATION RATE . ESTIMATED GFR I S NOT APPLICABLE FOR DIALYSIS PATIEN TS. HEPATIC FUNCTION [id number] 06:28:00 Test Item Value Reference Range Interpretation Comments TOTAL PROTEIN (BEAKER) (test code = 4.4 gm/dL 6.0-8.3 L 770) ALBUMIN (BEAKER) (test code = 1145) 2.8 g/dL 3.5-5.0 L BILIRUBIN TOTAL (BEAKER) (test code 0.2 mg/dL 0.2-1.2 = 377) BILIRUBIN DIRECT (BEAKER) (test 0.1 mg/dL 0.1-0.5 code = 706) ALKALINE PHOSPHATASE (BEAKER) (test 15 U/L 40-150 L code = 346) AST (SGOT) (BEAKER) (test code = 14 U/L 5-34 353) ALT (SGPT) (BEAKER) (test code = 12 U/L 6-55 347) [id number] 06:27:00 Test Item Value Reference Range Interpretation Comments MAGNESIUM (BEAKER) (test code = 1.8 mg/dL 1.6-2.6 627)
[2020-01-28] MEDS ORDERED: HEPA 1000U/500MLS 1,000 UNIT/500 ML BAG IV ONE (08:45)
[2020-01-28] MEDS ORDERED: MIDAZOLAM HCL 2 MG/2 ML INJ ONE (09:59)
[2020-01-28] MEDS ORDERED: NA CHLORIDE 0.9% 0 ML ONE (10:00)
[2020-01-28] MEDS ORDERED: FENTANYL CITR 100 MCG/2 ML ONE (10:00)
[2020-01-28] MEDS ORDERED: ATROPINE SULF 1 MG/10 ML SYR IV ONE (10:00)
--- NOTE | 2020-01-28 11:30 | OP ---
Surgeon: Thuan Carpenter MD Digital Sales Executive: Amy Kang. Reason For Admission: Selective left heart catheterization and selective coronary arteriogram. Indication: Positive stress test. History Of Present Illness: Ms. Corcoran is 79, has had a history of atrial fibrillation, hypertension, dyslipidemia, chronic diastolic congestive heart failure, dyspnea on exertion, positive stress test. Description Of Procedure: Brought into the physical laboratory assistant today as an outpatient, prepped and draped in th e routine sterile fashion. Given Versed for sedation. Using the Seldinger technique, we used 10 cc of xylocaine, introduced a 6-Serbian sheath in the right common femoral artery successfully. Angiogra phy there was normal. Angio-Seal was used to close the case. A Nabila catheter left and right were used to cannulate the left main and right main respectively. She has a left dominant system. She h ad minimal plaquing throughout the LAD circumflex and RCA with a very short left main, but no focal s tenosis. A 6-Serbian sheath and catheters were used. No complications. Estimated Blood Loss: 5 mL. Anesthesia: Total conscious sedation was 30 minutes. Postoperative Diagnosis: Minimal coronary artery disease, very tortuous vessels in the iliacs, dista l aorta as well as the coronaries. Plan: To continue medical therapy. The patient will resume her Eliquis tomorrow. She is also on so talol. MARCIA/JADE Voice ID: [id number] Report ID: [id number]
[2020-01-28 12:42] VITALS: TEMP 97
[2020-01-28 13:34] VITALS: BP 166/74; O2SAT 96
== END 2020-01-28 13:29 | disposition home health service (06) ==
LOC: CCL 08:01
DX: I25.10 Atherosclerotic heart disease of native coronary artery without angina pectoris (principal); I11.0 Hypertensive heart disease with heart failure; I50.32 Chronic diastolic (congestive) heart failure; I77.1 Stricture of artery; I34.0 Nonrheumatic mitral (valve) insufficiency; I48.0 Paroxysmal atrial fibrillation; J44.1 Chronic obstructive pulmonary disease with (acute) exacerbation; E78.2 Mixed hyperlipidemia; Z20.828 Contact with and (suspected) exposure to other viral communicable diseases
CPT/HCPCS: 85025; 80048; 36415; 85610; 85730; 71046; 93454; U0002; C1893; C1760; J2250; J3010; J7040; J1644; J0583

== ENCOUNTER 2022-03-26 21:55 | Inpatient (IN) | payer OTHER, MEDICARE ==
--- OUTSIDE RECORDS SUMMARY | 2022-03-26 22:00 | XMS REPORT | Continuity of Care Document ---
:1940 Author Organization [facility] t Address [address] [place] [address] Care Team Providers Name Role Phone System, Provider Not In Primary Care Physician Unavailable CHITRA FRENCH Attending Clinician Unavailable CHITRA FRENCH Admitting Clinician Unavailable Problems Condition Condition Condition Status Onset Resolution Last Treating Co mments Source Name Details Category Date Date Treatment Clinician Date GIB GIB Disease Active [facility] 3-15 Samantha kes estinal estinal 00:00: Medical bleeding) bleeding) 00 Cent er Acute Acute Disease Active [facility] blood loss blood loss Samantha kes anemia anemia [facility] Coronary Coronary Disease [facility] disease disease Medical due to due to Center lipid rich lipid rich plaque plaque Allergies, Adverse Reactions, Alerts This patient has no known allergies or adverse reactions. Social History Social Habit Start Date Stop Date Quantity Comments Source History SDOH [facility] Alcohol Comment Medical C enter History of tobacco Cigarette Smoker [facility] use [facility] History SDOH [facility] Alcohol Binge Medical [facility] Alcohol intake 2018-07-03 2018-07-03 [facility]00 [facility] (finding) Cigarettes smoked 2018-06-27 2018-06-[address] [facility] current (pack per 00:00:00 00:00:00 Medical Center day) - Reported Cigarette 2018-06-27 2018-06-[address] [facility] pack-years 00:00:00 00:00:00 Medical Center History [facility] 2018-06-27 2018-06-27 2 [facility] Frequency 00:00:00 00:00:00 Medical Center History [facility] 2018-06-27 2018-06-27 1 CARISA Wilson Alcohol Std Drinks 00:00:00 00:00:00 [facility] Sex Ass[birth year] At [birth year] [facility] 00:00:00 00:00:00 Medical Center Smoking Status Start Date Stop Date Source Former smoker 2018-06-27 00:00:00 2018-06-27 00:00:00 [facility] Medications Ordered Filled Start Stop Current Ordering Indication Dosage Frequency Signature Comments Components Source Medication Medication Date Date Medication? Clinician (SIG) Name Name pantoprazol Yes 40mg QD Take [address] 3-29 tablet (40 [facility] (PROTONIX) 00:00: mg total) Me dical 40 MG 00 by mouth Center tablet daily. dilTIAZem Yes 240mg QD Take [address] (CARDIZEM 3-28 mg by LuOSIX CD) 240 MG 15:33: mouth Medica l 24 hr 25 daily. [place] capsule fenofibrate Yes 145mg QD Take [address] (TRICOR) 3-28 mg by Madan 145 MG 15:33: mouth Medical tablet 25 daily. [place] lisinopril Yes 20mg Q.5D Take [address] (PRINIVIL,Z 3-28 by mouth 2 Samantha kes ESTRIL) 20 15:33: (two) Medica l MG tablet 25 times Center daily. multivitami Yes 1{capsu QD Take [address] n capsule 3-28 le} capsule by Panda s 15:33: mouth Medical 25 daily. [place] cholecalcif Yes 1000U QD Take 1,[address] cameron 3-28 Units by Madan (VITAMIN 15:33: mouth Medical D3) 1,000 25 daily. Center unit tablet omega-3 Yes 1g QD Take [address] fatty 3-28 by mouth SamanthaOSIX acids-fish 15:33: daily. Medic al oil 25 [place] 340-1,000 mg Cap per capsule tiotropium Yes QD Inhale by [facility] (SPIRIVA) 3-28 mouth via [facility] 18 mcg 15:33: inhaler Medical inhalation 25 daily. Center capsule fluticasone Yes 1{puff} Q.5D Inhale [address] -salmeterol 3-28 puff by [facility] (ADVAIR) 15:33: mouth via Medi jose 500-50 25 inhaler 2 Center mcg/dose (two) diskus times inhaler daily. albuterol Yes 2.5mg Take 2.[address] (PROVENTIL) 3-28 mg by [facility] 2.5 mg /3 15:33: nebulizati Me dical mL (0.083 25 on as Center %) needed for nebulizer Wheezing. solution hydroCHLORO Yes 12.5mg QD Take 12.[address] thiazide 3-28 mg by [facility] (MICROZIDE) 15:33: mouth Medic al 12.5 mg 25 daily. Center capsule rosuvastati Yes 10mg QD Take [address] n (CRESTOR) - by mouth Luke s 10 MG 15:33: daily. Medical tablet 25 [place] Procedures This patient has no known procedures. Results Test Description Test Time Test Comments Results Result Comments Source BLOOD CULTURE 2018-07-10 20:01:00 Test Item Value Reference Range Interpretation Comme nts CULTURE (BEAKER) (test code = 1095) No growth in 5 days BLOOD [id number] 20:01:00 Test Item Value Reference Range Interpretation Comments CULTURE (BEAKER) (test No growth in 5 days code = 1095) BASIC METABOLIC [id number] 07:48:00 Test Item Value Reference Range Interpretation [...] (BEAKER) (test code = 413) BASIC METABOLIC [id number] 05:52:00 Test Item Value Reference Range Interpretation [...] (BEAKER) (test code = 413) BLOOD GAS, [id number] 18:38:00 Test Item Value Reference Range Interpretation [...] = 700) RAD, CHEST, 1 VIEW, NON [id number] 17:51:00Reason for exam:->SOBShould this be performed at the bedside?->YesFINAL REPORT History: Shortness of breath. Comparison: 07/02/2018 Findings: A single view of the chest is submitted. The patient is rotated to the right. The cardiac silhouette is within normal limits for size. There is atherosclerotic calcification of the elongated aorta. Bluntingof the right costophrenic sulcus is similar to previous and suggests a small effusion versus pleuralthickening. Adjacent opacity may reflect atelectasis but pneumonitis should be excluded clinically. There is no pneumothorax, evidence of overt pulmonary edema or acute bony abnormality. Signed: Deuce Kothari MDReport Verified Date/Time: 07/06/2018 17:51:18 Reading Location: [address] Reading Room [facility] METABOLIC PANEL 2018-07-06 06:27:00 Test Item Value Reference Range Interpretation [...] PATIEN TS. CBC W/PLT COUNT & AUTO [id number] 05:54:00 Test Item Value Reference Range Interpretation [...] 0-1 PERCENT (BEAKER) (test code = 2801) [id number] 09:53:00 Test Item Value Reference Range Interpretation Comments PROCALCITONIN (BEAKER) (test code 0.12 ng/mL <0.05 H = 3036) SEPSIS RISK (ng/mL)Low: 0.05-0.50Intermediate: 0.51-2.00High: >=2.01CBC W/PLT COUNT & AUTO [id number] 06:33:00 Test Item Value Reference Range Interpretation [...] = 2801) CBC W/PLT COUNT & AUTO [id number] 04:59:00 Test Item Value Reference Range Interpretation [...] H (test code = 700) BASIC METABOLIC [id number] 03:44:00 Test Item Value Reference Range Interpretation [...] APPLICABLE FOR DIALYSIS PATIEN TS. LACTIC ACID, [id number] 03:39:00 Test Item Value Reference Range Interpretation Comments LACTATE BLOOD VENOUS (2) (BEAKER) 0.7 mmol/L 0.5-2.2 (test code = 2872) CBC W/PLT COUNT & AUTO [id number] 03:22:00 Test Item Value Reference Range Interpretation [...] = 2801) RAD, CHEST, 1 VIEW, NON [id number] 00:41:00Reason for exam:->acute hypoxiaShould this be performed at the bedside?->YesFINAL REPORT History: Hypoxia. Comparison: Same date at 1300 hours Findings: A s sirisha view of the chest is submitted. The examination is limited by low lung volumes and rotation tothe left. The cardiac silhouette is within normal [...] pneumothorax or acute bony abnormality. Signed: Deuce Kothari MDReport Verified Date/Time: 07/03/2018 00:41:40 Reading Location: [address] Reading Room POCT-LACTIC ACID, ARTERIAL 2018-07-02 20:45:00 Test Item Value Reference Range Interpretation Comments POC-LACTIC ACID, 2.1 mmol/L 0.4-1.3 H TESTED AT [facility] 67[address] ARTERIAL (BEAKER) [place] (test code = 2804) [address] POCT-BLOOD GASES, [id number] 20:45:00 Test Item Value Reference Range Interpretation Comments TEMP, CELSIUS-POC 37.0 (BEAKER) (test code = 1834) FIO2-POC (BEAKER) TESTED AT [place] [address] (test code = 1835) NAKIA [facility] [address] PH, ARTERIAL-POC 7.371 7.350-7.450 (BEAKER) (test code [...] L ARTERIAL-POC (BEAKER) (test code = 1841) [id number] 20:45:00 Test Item Value Reference Range Interpretation Comments POC-SODIUM (BEAKER) 133 meq/L 135-148 L TESTED A T [place] [address] (test code = 1542) NAKIA [facility] [address] [id number] 20:45:00 Test Item Value Reference Range Interpretation Comments POC-POTASSIUM 3.9 meq/L 3.6-5.5 TESTED AT [place] [address] (BEAKER) (test code [facility] [address] = 1540) [id number] 20:45:00 Test Item Value Reference Range Interpretation Comments POC-GLUCOSE (BEAKER) 142 mg/dL 70-110 H TESTED AT [place] [address] (test code = 1855) [facility] [address] POCT-CALCIUM [id number] 20:45:00 Test Item Value Reference Range Interpretation Comments POC-CALCIUM IONIZED 1.18 mmol/L 1.12-1.27 TESTED A T [facility] 67 (BEAKER) (test code = [place] [address]) [address] [id number] 20:45:00 Test Item Value Reference Range Interpretation Comments POC-HEMATOCRIT 28 % 36-45 L TESTED AT [place] [id number] (BEAKER) (test code = HO Burris [facility] [address]) [id number] 20:45:00 Test Item Value Reference Range Interpretation Comments POC-HEMOGLOBIN 9.5 g/dL 12.0-15.0 L TESTED AT [place] [address] (BEAKER) (test code = HO [place] [facility] [address]) [address]UFCPUA AT [facility] [address] [facility] [address] RESPIRATORY PANEL [id number] 17:58:00 Test Item Value Reference Range Interpretation [...] detected Not detected, (BEAKER) (test code = 0320) Equivocal ADENOVIRUS (BEAKER) (test Not detected Not [...] decisions. This sample was tested at the [facility] Molecular Diagnostics Laboratory using the girnarsoftArray Respiratory Panel. It is FDA cleared and has been verified and approved by the [facility] Molecular [facility]ostics Laboratory for clinical use on nasal swab specimens. It is not FDA-cleared for use on bronchial wash/lavage samples. However, for this sample type, validation was performed and test characteristics were determined and approved, by [facility] [employer] laboratory for clinical use under the Clinical Laboratory Improvement Amendments (CLIA) of 1988 requirements. Therefore, FDA clearance isnot required. This laboratory is CLIA- certified and [employer] (CAP)-accredited to perform high complexity testing.RAD, CHEST, 1 VIEW, NON [id number] 15:35:00Reason for exam:->feverShould this be performed at the bedside?->YesFINAL REPORT Portable chest. CLINICAL HISTORY: fever. COMPARISON STUDY: June 27, 2018. FINDINGS: The cardiac silhouette is enlarged. The pulmonary parenchyma demonstrates bibasilar atelectasis or consolidation with costophrenic angle blunting. No pneumothorax is seen. Degenerative changes are noted. IMPRESSION: Bibasilar atelectasis or consolidation with costophrenic angle blunt ing, slightly more pronounced on the right side than on previous. In the right clinical setting, a superimposed infection would be difficult to exclude. Clinical correlation and short term imaging follow-up could be made to exclude other etiologies. Signed: Zen Aguilar MDReport Verified Date/Time:07/02/2018 15:35:00 Reading Location: [address] Consult Reading Room HEMOGLOBIN AND HEMATOCRIT 2018-07-02 14:58:00 Test Item Value Reference Range Interpretation Comments HEMOGLOBIN (BEAKER) (test code = 8.9 GM/DL 11.2-15.7 L 410) HEMATOCRIT (BEAKER) (test code = 26.5 % 34.1-44.9 L 411) RAPID INFLUENZA A&B [id number] 11:44:00 Test Item Value Reference Range Interpretation Comments RAPID INFLUENZA A AG (BEAKER) Negative Negative, Inconclusive (test code = 1622) RAPID INFLUENZA B AG (BEAKER) Negative Negative, Inconclusive (test code = 1623) URINALYSIS W/ REFLEX URINE [id number] 11:38:00 Test Item Value Reference Range Interpretation [...] SOURCE(BEAKER) (test code = 2795) BASIC METABOLIC [id number] 06:10:00 Test Item Value Reference Range Interpretation [...] PATIEN TS. 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 Spectral and colorflow Doppler images were submitted for interpretation. 56 images were submitted for interpretation. Proximal aorta (at celiac axis): AP measurement 1.9 cm Transverse measurement 2.2 cm Mid aorta (at renal arteries): AP measurement 1.6 cm Transverse measurement 1.9 cm Distal aorta (above iliac bifurcation): AP m easurement 1.6 cm Transverse measurement 1.6cm Right Common Iliac Artery: 1.0 cmLeft Common Iliac Artery: 0.9 cm Aorta Color Doppler: Within normal limitsArterial Waveform: NormalPeriaortic Fluid: NegativeAscites: Negative Impression:There no evidence of an aortic aneurysm. There no evidence of a commo n iliac artery aneurysm. The origins of the celiac axis, superior mesenteric artery and inferior mesenteric artery are not adequately evaluated. If a hemodynamically significant stenosis is suspected correlation with a CTA or angiogram is recommended if clinically appropriate. Signed: Yudith Lucero MDReport Verified Date/Time: 07/01/2018 11:14:28 Reading Location: [facility] P006J Ultrasound Reading Room HEMOGLOBIN AND [id number] 10:42:00 Test Item Value Reference Range Interpretation Comments HEMOGLOBIN (BEAKER) (test code = 7.4 GM/DL 11.2-15.7 L 410) HEMATOCRIT (BEAKER) (test code = 22.7 % 34.1-44.9 L 411) HEMOGLOBIN AND [id number] 22:49:00 Test Item Value Reference Range Interpretation Comments HEMOGLOBIN (BEAKER) (test code = 7.2 GM/DL 11.2-15.7 L 410) HEMATOCRIT (BEAKER) (test code = 23.0 % 34.1-44.9 L 411) HEMOGLOBIN AND [id number] 11:52:00 Test Item Value Reference Range Interpretation Comments HEMOGLOBIN (BEAKER) (test code = 8.4 GM/DL 11.2-15.7 L 410) HEMATOCRIT (BEAKER) (test code = 28.5 % 34.1-44.9 L 411) BASIC METABOLIC [id number] 05:57:00 Test Item Value Reference Range Interpretation [...] WBC 0-0 (BEAKER) (test code = 413) [id number] 06:00:00 Test Item Value Reference Range Interpretation Comments MAGNESIUM (BEAKER) (test code = 2.0 mg/dL 1.6-2.6 627) BASIC METABOLIC [id number] 06:00:00 Test Item Value Reference Range Interpretation [...] code = 413) RAD, ABDOMEN/KUB, 1 VIEW [id number] 23:50:00Reason for exam:->evaluate for obstruction; acute onset abdominal pain with decreased flatusFINAL REPORT CLINICAL HISTORY: [place] pain with decreased flatus, concern for bowel obstruction COMPARISON: None. FINDINGS: A single supine view of the abdomen is submitted. The abdominal bowel gas pattern is nonspecific but grossly unobstructed. There is gas and enteric contrast in normal caliber large intestine, which extends to the rectum. No focus of gas dilated small bowel is identified. There is no evidence of organomegaly or significant ascites. No abnormal calcification is noted. There is no acute bony abnormality. Signed: Deuce Kotharieport Verified Date/Time: 06/28/2018 23:50:09 Reading Location: [address] Reading Room HEMOGLOBIN AND [id number] 13:24:00 Test Item Value Reference Range Interpretation Comments HEMOGLOBIN (BEAKER) (test code = 9.6 GM/DL 11.2-15.7 L 410) HEMATOCRIT (BEAKER) (test code = 29.3 % 34.1-44.9 L 411) BASIC METABOLIC [id number] 05:37:00 Test Item Value Reference Range Interpretation [...] pg/mL 0-100 H (test code = 700) [id number] 04:52:00 Test Item Value Reference Range Interpretation [...] (BEAKER) (test code = 413) HEMOGLOBIN AND [id number] 20:46:00 Test Item Value Reference Range Interpretation Comments HEMOGLOBIN (BEAKER) (test code = 10.5 GM/DL 11.2-15.7 L 410) HEMATOCRIT (BEAKER) (test code = 31.5 % 34.1-44.9 L 411) RAD, CHEST, 1 VIEW, NON [id number] 15:18:00Reason for exam:- >dyspneaShould this be performed at the bedside?->YesFINAL REPORT CLINICAL HISTORY: dyspnea TECHNIQUE: 1 view of the chest. COMPARISO N: None IMPRESSION: There are no focal infiltrates or effusions. The cardiomediastinal silhouette ismagnified by technique. The osseous structures appear intact. Signed: Ashleigh Chilel MDReport Verified Date/Time: 06/27/2018 15:18:20 Reading Location: [facility] C0[facility] Consult Reading Room Electronically si gned by: ASHLEIGH CHILEL M.D. on 06/27/2018 03:18 PMHEMOGLOBIN AND HEMATOCRIT 2018-06-27 14:44:00 Test Item Value Reference Range Interpretation Comments HEMOGLOBIN (BEAKER) (test code = 8.6 GM/DL 11.2-15.7 L 410) HEMATOCRIT (BEAKER) (test code = 26.5 % 34.1-44.9 L 411) POCT-LACTIC ACID, [id number] 13:49:00 Test Item Value Reference Range Interpretation Comments POC-LACTIC ACID, 0.7 mmol/L 0.9-1.7 L TESTED AT [facility] [address] (BEAKER) (test [facility] [place] code = 2805) [address] [id number] 10:25:00 Test Item Value Reference Range Interpretation Comments PROTIME (BEAKER) (test code = 14.0 seconds 11.7-14.7 759) INR (BEAKER) (test code = 370) 1.1 <=5.9 PARTIAL THROMBOPLASTIN TIME 24.6 seconds 22.5-36.0 (BEAKER) (test code = 760) RECOMMENDED COUMADIN/WARFARIN INR THERAPY RANGESSTANDARD DOSE: 2.0 - 3.0 Includes: PROPHYLAXIS for venous thrombosis, systemic embolization; TREATMENT for venous thrombosis and/or pulmonary embolus.HIGH RISK: Target INR is 2.5-3.5 for patients with mechanical heart valves.HEMOGLOBIN AND [id number] 09:55:00 Test Item Value Reference Range Interpretation [...] (BEAKER) (test code = 413) BASIC METABOLIC [id number] 06:28:00 Test Item Value Reference Range Interpretation [...] APPLICABLE FOR DIALYSIS PATIEN TS. HEPATIC FUNCTION [id number] 06:28:00 Test Item Value Reference Range Interpretation [...] (test code = 12 U/L 6-55 347) [id number] 06:27:00 Test Item Value Reference Range Interpretation Comments MAGNESIUM (BEAKER) (test code = 1.8 mg/dL 1.6-2.6 627)
[2022-03-26 22:35] LABS: Arterial Blood Carboxyhemoglob 0.8 % (0-1.5); Blood Gas Oxyhemoglobin 97.2 % (94-97)
[2022-03-26 22:44] LABS: Absolute Lymphocytes (CBC) 1.4 K/uL (0.7-4.9); Hematocrit 39.2 % (36.0-45.0); Lymphocytes % 16.3 % (15.3-44.8); MCV 92.9 fL (80-100); MPV 9.4 fL (7.6-11.3); RBC Red Blood Cell Count 4.22 M/uL (3.86-4.86)
[2022-03-26 22:55] LABS: Protime INR 1.34
[2022-03-26 23:07] LABS: Albumin 3.2 g/dL (3.4-5.0); Bilirubin Direct 0.1 mg/dL (0-0.2); Bilirubin Total 0.4 mg/dL (0.2-1.0); Magnesium 2.3 mg/dL (1.6-2.4); Potassium 4.5 mmol/L (3.5-5.1); Protein, Total 6.8 g/dL (6.4-8.2)
[2022-03-26 23:10] LABS: Troponin High Sensitivity 62.3 pg/mL (<58.9)
[2022-03-26 23:30] LABS: SARS-COV-2 RT PCR NEGATIVE (NEGATIVE)
--- NOTE | 2022-03-27 00:12 | EDPHYS ---
Physician Documentation [facility] Name: Radha Corcoran Age: 81 yrs Sex: Female : 1940 Arrival Date: 03/26/2022 Time: 21:56 Bed 3 Private MD: ED Physician Jamison Cano HPI: 03/26 22:05 This 81 yrs old Female presents to ER via EMS with complaints of Shortness of Breath. cp 22:05 The patient has shortness of breath at rest. cp 22:05 Onset: The symptoms/episode began/occurred 2 day(s) ago, and became worse today. cp Duration: The symptoms are continuous, and are steadily getting worse. 22:05 Associated signs and symptoms: Pertinent negatives: chest pain, diaphoresis, fever, cp vomiting. Severity of symptoms: in the emergency department the symptoms are unchanged despite home interventions. Historical: - Allergies: 22:01 No Known Allergies; jb4 - Home Meds: 22:01 Albuterol Inhl [Active]; jb4 - PMHx: 22:01 Asthma; Hypertension; COPD; jb4 - PSHx: 22:01 hysterectomy; jb4 ROS: 22:10 Constitutional: Negative for fever, poor PO intake. cp 22:10 Eyes: Negative for injury, pain, redness, and discharge. cp 22:10 ENT: Negative for drainage from ear(s), ear pain, sore throat, difficulty swallowing, difficulty handling secretions. 22:10 Cardiovascular: Negative for chest pain. 22:10 Respiratory: Positive for shortness of breath, at rest. wheezing. 22:10 Abdomen/GI: Negative for abdominal pain, vomiting, diarrhea, constipation. 22:10 Neuro: Negative for altered mental status, headache. 22:10 All other systems are negative. Exam: 22:15 Constitutional: The patient appears alert, awake, non-diaphoretic, non-toxic, well cp developed, well nourished, in obvious distress, mildly distressed. 22:15 Head/Face: Normocephalic, atraumatic. cp 22:15 Eyes: Periorbital structures: appear normal, Conjunctiva: normal, no exudate, no injection, Sclera: no appreciated abnormality, Lids and lashes: appear normal, bilaterally. 22:15 ENT: External ear(s): are unremarkable, Nose: is normal, Mouth: Lips: moist, Oral mucosa: moist, Posterior pharynx: Airway: no evidence of obstruction, patent, swelling, is not appreciated, erythema, is not appreciated, exudate, is not appreciated. 22:15 Neck: ROM/movement: is normal, is supple, without pain, no range of motions limitations, no meningismus. 22:15 Chest/axilla: Inspection: normal. 22:15 Cardiovascular: Rate: normal, Rhythm: regular, Edema: ankle edema, that is mild, JVD: is not appreciated. 22:15 Respiratory: mild respiratory distress is noted, Respirations: labored breathing, that is mild, Breath sounds: decreased breath sounds, that are moderate, throughout, stridor, is not appreciated. 22:15 Abdomen/GI: Inspection: abdomen appears normal, Palpation: abdomen is soft and non-tender, in all quadrants. 22:15 Neuro: Orientation: to person, place \T\ time. Mentation: is normal, Motor: moves all fours, strength is normal, Sensation: no obvious gross deficits. 23:10 ECG was reviewed by the Attending Physician. cp Vital Signs: 21:56 BP 150 / 113; Pulse 73; Resp 30; Temp 99.3(O); Pulse Ox 98% on Nebulizer Mask; Weight jb4 62.6 kg (R); Height 5 ft. 2 in. (157.48 cm); 23:00 BP 134 / 93; Pulse 113; Resp 19; Pulse Ox 95% on BiPAP; ll3 03/27 00:00 BP 90 / 56; Pulse 96; Resp 18; Pulse Ox 99% on BiPAP; ll3 01:00 BP 123 / 92; Pulse 70; Resp 14; Pulse Ox 99% on BiPAP; ll3 02:53 BP 123 / 96; Pulse 64; Resp 19; Pulse Ox 98% on BiPAP; ll3 08:00 BP 134 / 88; Pulse 72; Resp 20; Temp 98.2(TE); Pulse Ox 98% on BiPAP; aa5 03/26 21:56 Body Mass Index 25.24 (62.60 kg, 157.48 cm) jb4 MDM: 03/26 22:02 Patient medically screened. cp 23:00 Differential diagnosis: Chronic Obstructive Pulmonary Disease Myocardial Infarction cp pneumonia, Pneumothorax pulmonary edema, Pulmonary Embolism Sepsis. 12/13 00:15 Data reviewed: vital signs, nurses notes, lab test result(s), EKG, radiologic studies, cp plain films. 00:15 Test interpretation: by ED physician or midlevel provider: ECG, plain radiologic cp studies. Counseling: I had a detailed discussion with the patient and/or guardian regarding: the historical points, exam findings, and any diagnostic results supporting the discharge/admit diagnosis, lab results, radiology results, the need for further work-up and treatment in the hospital. 03/26 22:01 Order name: Basic Metabolic Panel; Complete Time: 00:06 cp 03/27 00:06 Interpretation: Normal except: CL 109; GLUC 135; BUN 28; CRE 1.15; GFR 47. 03/26 22:01 Order name: CBC with Diff; Complete Time: 00:06 03/27 00:07 Interpretation: Normal except: RASHAUN% 74.1. 03/26 22:01 Order name: LFT's; Complete Time: 00:06 03/27 00:07 Interpretation: Normal except: ALB 3.2; GLOB 3.6; A/G 0.9. 03/26 22:01 Order name: Magnesium; Complete Time: 00:06 03/26 22:01 Order name: NT PRO-BNP; Complete Time: 00:06 03/27 00:08 Interpretation: Abnormal: NT PRO-BNP 3592. 03/26 22:01 Order name: PT-INR; Complete Time: 00:06 03/26 22:01 Order name: Troponin HS; Complete Time: 00:06 03/26 22:01 Order name: COVID-19/FLU A+B; Complete Time: 00:06 03/26 22:01 Order name: ABG; Complete Time: 00:06 03/26 22:01 Order name: Lactate w/ 2H reflex if indic.; Complete Time: 00:06 03/26 22:01 Order name: Procalcitonin; Complete Time: 00:06 03/26 22:01 Order name: Blood Culture Adult (2) cp 03/26 22:02 Order name: Urine Microscopic Only cp 03/27 00:27 Order name: Basic Metabolic Panel EDMS 03/26 22:01 Order name: XRAY Chest (1 view) cp 03/26 22:01 Order name: EKG; Complete Time: 22:02 03/26 22:01 Order name: Cardiac monitoring; Complete Time: 22:06 cp 03/26 22:01 Order name: EKG - Nurse/Tech; Complete Time: 23:46 cp 03/26 22:01 Order name: IV Saline Lock; Complete Time: 22:06 cp 03/26 22:01 Order name: Labs collected and sent; Complete Time: 22:44 cp 03/26 22:01 Order name: O2 Per Protocol; Complete Time: 22:05 cp 03/26 22: Order name: BIPAP cp 03/27 00:27 Order name: Regular EDMS 03/27 00:27 Order name: Basic Metabolic Panel EDMS 03/27 00:27 Order name: CBC with Automated Diff EDMS 03/27 00:27 Order name: CBC with Automated Diff EDMS 03/27 00:27 Order name: NT PRO-BNP EDMS 03/27 00:27 Order name: NT PRO-BNP EDMS 03/26 22: Order name: O2 Sat Monitoring; Complete Time: 22:05 cp EC/12 23:10 Rate is 61 beats/min. Rhythm is regular. NH interval is normal. QRS interval is normal. cp QT interval is normal. T waves are Inverted in leads aVL, aVR, V2. Interpreted by me. Reviewed by me. Administered Medications: 03/27 01:20 Drug: Zithromax (azithromycin) 500 mg Route: IVPB; Infused Over: 1 hrs; Site: left ll3 antecubital; 01:20 Drug: Rocephin (cefTRIAXone) 1 grams Route: IV; Rate: calculated rate; Site: left ll3 antecubital; Disposition: 20:01 Co-signature as Attending Physician, Jamison Cano MD. rn Disposition Summary: 03/27/22 00:11 Hospitalization Ordered Hospitalization Status: Inpatient Admission cp Condition: Stable cp Problem: new cp Symptoms: have improved cp Bed/Room Type: Standard cp Provider: Olamide Hameed(03/27/22 00:17) cp Location: Telemetry/MedSurg (Inpatient)(03/27/22 07:20) calvin Room Assignment: 409(03/27/22 07:20) ja1 Diagnosis - Pneumonia in diseases classified elsewhere cp - COPD/ Chronic obstructive pulmonary disease with (acute) exacerbation cp Forms: - Medication Reconciliation Form cp - SBAR form cp Signatures: Dispatcher [employer] Jamison Page MD MD rn Page, Corey, PA PA cp Esthela Barroso, Ozzie Reyes RN, RN RN jb4 Dannie Diamond RN RN ja1 Ricardo Allen RN RN ll3 Corrections: (The following items were deleted from the chart) 00:17 00:11 Orville Benjamin cp cp 00:24 00:11 Telemetry/MedSurg (Inpatient) cp cg 00:24 00:11 cp cg 07:20 00:24 [facility] ER HOLD cg ja1 07:20 00:24 ERHOLD- cg ja1 03/28 05:04 03/26 22:15 Cardiovascular: Rate: normal, Rhythm: regular, Edema: is not appreciated, cp JVD: is not appreciated, cp
--- NOTE | 2022-03-27 00:12 | ER ---
Nurse's Notes [facility] Name: Radha Corcoran Age: 81 yrs Sex: Female : 1940 Arrival Date: 03/26/2022 Time: 21:56 Bed 3 Private MD: Diagnosis: Pneumonia in diseases classified elsewhere;COPD/ Chronic obstructive pulmonary disease with (acute) exacerbation Presentation: 03/26 21:56 Chief complaint: EMS states: Pt reports worsening SOB x2 days. Her normal albuterol at [facility] home is not helping. She was 88% on RA. She is receiving 2:1 albuterol and Atrovent, was given 125 mg of Solu-Medrol, and 150 ml of NS. She had wheezes in the lung bases, initial b/p was 200/150. Coronavirus screen: Client presents with at least one sign or symptom that may indicate coronavirus-19. Provider contacted for isolation considerations. Ebola Screen: No symptoms or risks identified at this time. Initial Sepsis Screen: Does the patient meet any 2 criteria? RR > 20 per min. Yes Does the patient have a suspected source of infection? No. Patient's initial sepsis screen is negative. Risk Assessment: Do you want to hurt yourself or someone else? Patient reports no desire to harm self or others. Onset of symptoms was March 24, 2022. Transition of care: patient was not received from another setting of care. 21:56 Method Of Arrival: EMS: [place] [id number] 21:56 Acuity: [facility] 2 jb4 Historical: - Allergies: 22:01 No Known Allergies; jb4 - Home Meds: 22:01 Albuterol Inhl [Active]; jb4 - PMHx: 22:01 Asthma; Hypertension; COPD; jb4 - PSHx: 22:01 hysterectomy; jb4 Screenin:03 Abuse screen: Denies threats or abuse. Nutritional screening: No deficits noted. jb4 Tuberculosis screening: No symptoms or risk factors identified. Fall Risk IV access (20 points). Total Hager Fall Scale indicates No Risk (0-24 pts). Assessment: 22:03 General: Appears in no apparent distress. uncomfortable, Behavior is cooperative, jb4 anxious. Pain: Denies pain. Neuro: Level of Consciousness is awake, alert, obeys commands, Oriented to person, place, time, situation. Cardiovascular: Patient's skin is warm and dry. Respiratory: Airway is patent Trachea midline Respiratory effort is labored, using tripod position, Respiratory pattern is symmetrical, tachypnea Breath sounds are diminished bilaterally. Breath sounds with wheezes bilaterally. GI: No signs and/or symptoms were reported involving the gastrointestinal system. : No signs and/or symptoms were reported regarding the genitourinary system. EENT: No signs and/or symptoms were reported regarding the EENT system. Derm: Skin is intact, Skin is pink, warm \T\ dry. Musculoskeletal: Circulation, motion, and sensation intact. Range of motion: intact in all extremities. 23:00 Reassessment: Patient appears in no apparent distress at this time. Patient and/or jb4 family updated on plan of care and expected duration. Pain level reassessed. Patient is alert, oriented x 3, equal unlabored respirations, skin warm/dry/pink. 03/27 00:00 Reassessment: Patient appears in no apparent distress at this time. Patient and/or jb4 family updated on plan of care and expected duration. Pain level reassessed. Patient is alert, oriented x 3, equal unlabored respirations, skin warm/dry/pink. 01:00 Reassessment: Patient appears in no apparent distress at this time. Patient and/or jb4 family updated on plan of care and expected duration. Pain level reassessed. Patient is alert, oriented x 3, equal unlabored respirations, skin warm/dry/pink. 02:00 Reassessment: Pt is resting in bed with eyes closed, respirations are even and jb4 unlabored with no s/s of pain or distress noted. 03:00 Reassessment: Patient appears in no apparent distress at this time. No changes from jb4 previously documented assessment. Patient and/or family updated on plan of care and expected duration. Pain level reassessed. 07:00 Reassessment: Pt currently resting with eyes closed, respirations even and unlabored, aa5 tolerating bi-pap well. . 07:38 Reassessment: Unsuccessful attempt to call report. . aa5 08:00 Reassessment: Patient is alert, oriented x 3, equal unlabored respirations, skin aa5 warm/dry/pink. Vital Signs: 03/26 21:56 BP 150 / 113; Pulse 73; Resp 30; Temp 99.3(O); Pulse Ox 98% on Nebulizer Mask; Weight jb4 62.6 kg (R); Height 5 ft. 2 in. (157.48 cm); 23:00 BP 134 / 93; Pulse 113; Resp 19; Pulse Ox 95% on BiPAP; ll3 03/27 00:00 BP 90 / 56; Pulse 96; Resp 18; Pulse Ox 99% on BiPAP; ll3 01:00 BP 123 / 92; Pulse 70; Resp 14; Pulse Ox 99% on BiPAP; ll3 02:53 BP 123 / 96; Pulse 64; Resp 19; Pulse Ox 98% on BiPAP; ll3 08:00 BP 134 / 88; Pulse 72; Resp 20; Temp 98.2(TE); Pulse Ox 98% on BiPAP; aa5 03/26 21:56 Body Mass Index 25.24 (62.60 kg, 157.48 cm) jb4 ED Course: 03/26 21:56 Patient arrived in ED. jb4 22:00 Sam Chavez PA is PHCP. cp 22:00 Jamison Cano MD is Attending Physician. cp 22:01 Triage completed. jb4 22:01 Arm band placed on right wrist. jb4 22:03 Patient has correct armband on for positive identification. Bed in low position. Call jb4 light in reach. Side rails up X 1. Client placed on continuous cardiac and pulse oximetry monitoring. NIBP monitoring applied. quality assurance monitor final on. 22:55 XRAY Chest (1 view) In Process Unspecified. EDMS 23:10 Notified Nurse Practitioner and/or Physician Display Mechanic of a critical lab result(s), bb troponin of 62.3 Sam THAYER notified. 03/27 00:11 Orville Benjamin MD is Hospitalizing Provider. cp 00:17 Olamide Hameed MD is Hospitalizing Provider. cp 03:08 Ozzie Lazo, DAVIDE is Primary Nurse. jb4 08:00 IV 20G to L AC. aa5 08:25 No provider procedures requiring assistance completed. Patient admitted, IV remains in aa5 place. Administered Medications: 01:20 Drug: Zithromax (azithromycin) 500 mg Route: IVPB; Infused Over: 1 hrs; Site: left ll3 antecubital; 01:20 Drug: Rocephin (cefTRIAXone) 1 grams Route: IV; Rate: calculated rate; Site: left ll3 antecubital; Medication: 03/26 22:03 VIS not applicable for this client. jb4 Outcome: 03/27 00:11 Decision to Hospitalize by Provider. cp 08:25 Patient left the ED. aa5 08:25 Admitted to Tele accompanied by nurse, via stretcher, with oxygen, with chart, Report aa5 called to DAVIDE Meneses 08:25 Condition: stable 08:25 Instructed on the need for admit, Demonstrated understanding of instructions. Signatures: Dispatcher [employer] EDMS Jessica Montero RN RN bb Susan Kuo RN RN aa5 Sam Chavez PA PA cp Ozzie Lazo RN RN jb4 Ricardo Allen RN RN ll3 Corrections: (The following items were deleted from the chart) 08:42 08:36 Patient left the ED. aa5 aa5 08:42 08:30 No provider procedures requiring assistance completed. aa5 aa5 08:42 08:30 Patient admitted, IV remains in place. aa5 aa5
[2022-03-27] MEDS ORDERED: ONDANSETRON 4 MG/2 ML VIAL IV PRN (00:23)
[2022-03-27] MEDS ORDERED: ACETAMINOPHEN 500 MG TAB PO PRN (00:23)
[2022-03-27] MEDS ORDERED: CEFTRIAXONE 1000 MG/VIAL ONE (01:00)
[2022-03-27] MEDS ORDERED: AZITHROMYCIN 500 MG INJ IVPB ONE (01:00)
[2022-03-27] MEDS ORDERED: NA CHLORIDE 0.9% 250 ML ONE (01:00)
[2022-03-27] MEDS: IPRATROPIUM BROM 0.5MG/2.5ML NEB SCH ×5 (02:00→20:30)
[2022-03-27] MEDS: ALBUTEROL 2.5 MG/3 ML NEB SOL NEB SCH ×4 (02:10→20:30)
[2022-03-27] MEDS ORDERED: IPRATROPIUM BROM 0.5MG/2.5ML ONE (02:25)
[2022-03-27] MEDS ORDERED: ALBUTEROL 2.5 MG/3 ML NEB SOL ONE (02:26)
[2022-03-27 03:11] VITALS: BMI 25.2
[2022-03-27] MEDS ORDERED: ENOXAPARIN 40 MG/0.4 ML SQ ONE (05:41)
[2022-03-27] MEDS: METHYLPREDNISOLONE 125 MG INJ IV SCH ×3 (06:00→21:23)
[2022-03-27] MEDS: CEFTRIAXONE 1,000 MG in NA CHLORIDE 0.9% 50 ML IVPB SCH ×2 (10:09→20:43)
[2022-03-27] MEDS: AZITHROMYCIN IV 500 MG in NA CHLORIDE 0.9% 250 ML IVPB SCH (10:10)
[2022-03-27] MEDS: ASPIRIN 81 MG CHEWABLE TABLET PO SCH (11:42)
[2022-03-27] MEDS: ENOXAPARIN 60 MG/0.6 ML SQ SCH ×2 (11:42→20:43)
--- NOTE | 2022-03-27 14:35 | EKG ---
Test Date: 2022-03-26 Test Time: 23:05:56 Reducing Salon Attendant: CELESTE MEASUREMENT RESULTS: Intervals: Rate: 61 IN: 194 QRSD: 80 QT: 452 QTc: 455 [place]: P: 75 IN: 194 QRS: 63 T: 72 INTERPRETIVE STATEMENTS: Normal sinus rhythm Septal infarct, age undetermined Abnormal ECG Compared to ECG 03/24/2019 09:08:18 Myocardial infarct finding now present Sinus bradycardia no longer present Ventricular premature complex(es) no longer present ST (T wave) deviation no longer present Possible ischemia no longer present Prolonged QT interval no longer present Electronically Signed On 03-27-22 14:34:05 EMBRYOLOGY TEACHER by Jarret Calhoun
--- NOTE | 2022-03-27 17:03 | RAD REPORT ---
EXAM DESCRIPTION: RAD - Chest Single View - 03/26/2022 10:53 pm CLINICAL HISTORY: 80-year-old female with shortness of breath. TECHNIQUE: Single view, AP portable chest was obtained. COMPARISON: None. FINDINGS: Unremarkable cardiac and mediastinal silhouette. Heart size is normal. Tortuous atheroscle rotic thoracic aorta. Right basilar opacity concerning for consolidation/pneumonia. Blunting of the right costophrenic angl e may reflect associated trace pleural effusion. Lungs are otherwise clear without additional focal opacity, pneumothorax or large pleural effusions. The visualized bones demonstrate deformity of the lower right lateral chest wall raising the possib ility of sequela of prior injury. IMPRESSION: Right basilar opacity concerning for consolidation/pneumonia. Please correlate with kal ent clinical findings and follow-up for resolution. 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 The interpreting radiologist is fully responsible for the content of the report.
--- NOTE | 2022-03-27 21:51 | CON ---
Date of Consultation: 03/27/2022 Reason For Consultation: Elevated troponin. History Of Present Illness: This is an 81-year-old female with no history of COPD and hypertension, presented to the emergency room with worsening shortness of breath for 2 days, kept wheezing all nigh t last night, so she presented to the emergency room. She denied having any chest pain and no known history of cardiac disease. So, by bedside today, she is much more comfortable. Denies any chest pa in. No orthopnea. No lower extremity edema. No nausea or vomiting, diarrhea or diaphoresis. Past Medical History: As outlined above in the HPI. Medications: Refer reconciliation sheet for detailed list. Allergies: NO KNOWN DRUG ALLERGIES. Family History: No premature coronary artery disease or cancer. Past Surgical History: Hysterectomy. Social History: She does not smoke currently. Does not drink or use any drugs. Review of Systems: All systems reviewed are negative except what is mentioned in HPI. Physical Examination: Vital signs: Reviewed. Head and Neck: Pupils are equal, reactive to light. Intact eye movements. No JVD. No cervical lym phadenopathy. Neck: Supple. Thyroid is not enlarged. Lungs: Rhonchi bilaterally with wheezing. No accessory muscle use or muscle retraction. Heart: Regular rate and rhythm. No extra sounds. Abdomen: Soft, nontender. Bowel sounds positive. No organomegaly. No masses or hernia. No rigidi ty or rebound. Extremities: No edema, clubbing, or cyanosis. Intact pulses. SKIN: No rash. Neurologic: Alert, awake, oriented x3. No acute focal deficits appreciated. Investigations: Chest x-ray showed right basilar opacity concerning for pneumonia. Troponin 62, the n 220 and then 222, BUN 28, creatinine 1.15. Assessment And Recommendation: 1.Elevated troponin. This likely represents demand ischemia; however, the patient has risk factors. She used to be a heavy smoker in the past. She apparently had a coronary angiogram done by Dr. Gilmar turner back in January of 2020, which showed that she had minimal plaque in the left anterior descending , left circumflex and right coronary artery, but no significant disease. As such, I recommend to obt ain an echocardiogram and trend the troponin further until it trends down. Further recommendation wi ll follow after the echocardiogram to evaluate for any wall motion abnormalities. 2.Chronic obstructive pulmonary disease exacerbation, getting stabilized. 3.Pneumonia, on antibiotics. SR/MODL Voice ID: [id number] Report ID: [id number]
[2022-03-28] MEDS: ALBUTEROL 2.5 MG/3 ML NEB SOL NEB SCH ×4 (02:50→20:35)
[2022-03-28] MEDS: IPRATROPIUM BROM 0.5MG/2.5ML NEB SCH ×4 (02:50→20:35)
[2022-03-28 04:34] LABS: Potassium 4.7 mmol/L (3.5-5.1)
[2022-03-28] MEDS: PANTOPRAZOLE 40MG TABLET PO SCH ×2 (05:48→09:53)
[2022-03-28] MEDS: METHYLPREDNISOLONE 125 MG INJ IV SCH ×3 (05:48→22:01)
[2022-03-28 06:23] LABS: Absolute Lymphocytes (CBC) 0.6 K/uL (0.7-4.9); Hematocrit 42.8 % (36.0-45.0); Lymphocytes % 6.8 % (15.3-44.8); MCV 92.5 fL (80-100); RBC Red Blood Cell Count 4.63 M/uL (3.86-4.86)
--- NOTE | 2022-03-28 07:13 | HP ---
Date of Admission: 03/27/2022 Chief Complaint: Cough, congestion, shortness of breath. History Of Present Illness: Ms. Corcoran is a very pleasant 81-year-old female patient, who came into em ergency room with cough, congestion, and shortness of breath for last few days. Denies any vomiting or diarrhea. After she came into emergency room, she was evaluated and admitted to the hospital with acute exacerbation of COPD and pneumonia and respiratory failure with hypoxia. When I saw her this morning, she was in the emergency room on BiPAP. Overall, feeling better compared to before. Review of Systems: Respiratory: As mentioned above. All other systems reviewed and negative. Allergies: NO KNOWN ALLERGIES. Medications: Spiriva 1 puff daily, Advair 1 puff 2 times a day, albuterol inhaler as needed, Eliquis 5 mg 2 times a day, sotalol 80 mg 2 times a day, atorvastatin 20 mg daily, vitamin D3 1000 units patsy ly, furosemide 40 mg 2 times a day, lisinopril 20 mg 2 times a day, ibandronate 150 mg daily, lansopr azole 15 mg daily, Claritin 10 mg daily, sertraline 25 mg daily. Past Medical History: Significant for allergic rhinitis, asthma, COPD, hypertension, hyperlipidemia, coronary artery disease, chronic atrial fibrillation, gastroesophageal reflux disease, diverticulosi s, depression, osteoporosis. Past Surgical History: Cataract surgery, hysterectomy. Family History: Father , had unknown type of cancer. Mother , details unknown, but she had motor vehicular accident. Sister had cervical cancer and lung cancer. Social History: Prior history of smoking, not at present time. Use of alcohol occasional. Physical Examination: Vital Signs: This morning when I saw her, temperature 96.9, pulse 69, respiratory rate 19, blood pre ssure 162/103, height 5 feet 2 inches, weight 138 pounds. General: Awake, alert, oriented, not in distress. HEENT: Head atraumatic, normocephalic. Conjunctivae nonerythematous. Sclerae white. Mouth, no thr ush or edema noted. Ears/Nose, no mass, lesion, discharge noted. Neck: Supple. No JVD, lymph nodes, bruit, thyromegaly noted. Lungs: Presence of rales noted in right lower lung field. Not using any accessory muscles for respi ration. Heart: Normal heart sounds, no murmur or gallop. Abdomen: Soft, bowel sounds normal. No guarding, rigidity, tenderness, mass, hepatosplenomegaly, dis tention, or bruit noted. Extremities: No leg edema. No calf tenderness. Skin: No rash, ulcer, cellulitis. Lymphatics: No lymph node enlargement in neck, supraclavicular, infraclavicular region. Neuro: No focal neurological deficit. Chest: Unremarkable. External Genitalia: Deferred. Rectal: Deferred. Laboratory Data: White count 8.4, hemoglobin 13, platelets 216. Blood gas; pH 7.25, pCO2 52.9, pO2 is 230, oxygen saturation 99% on 100% FiO2. Sodium 139, potassium 4.5, chloride 109, bicarb 27, BUN 28, creatinine 1.15, glucose 135. Liver function tests unremarkable. Troponin first set 62.3, secon d set 220, third set 222. Procalcitonin less than 0.05. BNP 3592. Influenza A, B, and COVID-19 mason t negative. Chest x-ray shows right lung base pneumonia. Impression: 1.Pneumonia. 2.Acute exacerbation of chronic obstructive pulmonary disease. 3.Acute respiratory failure with hypoxia. 4.Chronic atrial fibrillation. 5.Chronic anticoagulation therapy. 6.Hypertension. 7.Hyperlipidemia. 8.Depression. 9.Gastroesophageal reflux disease. 10.Diverticulosis. 11.Allergic rhinitis. Plan: We will go ahead and admit the patient to hospital for further evaluation and management of th is problem. Patient is appropriate for inpatient and is expected to spend 2 midnights in hospital. For her pneumonia, I will go ahead and give azithromycin and ceftriaxone per order. For COPD exacerb ation and asthma problem, we will go ahead and give IV steroid and nebulizer treatment per order. We will continue her inhaler. We do not have Advair in the hospital, so we will use Dulera inhaler 2 p uffs 2 times a day. For hypertension, continue her antihypertensive medication, which is lisinopril. For atrial fibrillation, continue sotalol. We will not give any Eliquis at this point considering her troponin was elevated on the second set. The patient was started on Lovenox injection 1 mg/kg rodrigues bcutaneous injection every 12 hours. Cardiology consultation was requested and echocardiogram was or dered. It appears that this is probably more demand ischemia than myocardial infarction at this poin t. I will see her tomorrow for followup. Details and plan of treatment discussed with the patient. EMEKA/JADE Voice ID: [id number]
--- NOTE | 2022-03-28 07:14 | ECHO ---
HEIGHT: 5 ft 2 in WEIGHT: 138 lb 0 oz DATE OF STUDY: 03/27/[address]: Todd Hameed MD 2-DIMENSIONAL: YES M.MODE: YES DOPPLER: YES COLOR FLOW: YES TDS: PORTABLE: YES DEFINITY: BUBBLE STUDY: DIAGNOSIS: INCREASED TROPONIN CARDIAC HISTORY: CATHERIZATION: NO SURGERY: NO PROSTHETIC VALVE: NO PACEMAKER: NO MEASUREMENTS (cm) DIASTOLIC (NORMALS) SYSTOLIC (NORMALS) IVSd 1.0 (0.6-1.2) LA Diam 2.9 (1.9-4.0) LVEF 55-60% LVIDd 4.0 (3.5-5.7) LVIDs 2.9 (2.0-3.5) %FS 27% LVPWd 1.1 (0.6-1.2) Ao Diam 2.5 (2.0-3.7) 2 DIMENSIONAL ASSESSMENT: RIGHT ATRIUM: NORMAL LEFT ATRIUM: NORMAL RIGHT VENTRICLE: NORMAL LEFT VENTRICLE: NORMAL TRICUSPID VALVE: MILD TRICUSPID REGURGITATION MITRAL VALVE: MILD MITRAL REGURGITATION PULMONIC VALVE: NORMAL AORTIC VALVE: MODERATE AORTIC INSUFFICIENCY PERICARDIAL EFFUSION: NONE AORTIC ROOT: NORMAL LEFT VENTRICULAR WALL MOTION: NORMAL DOPPLER/COLOR FLOW: SEE BELOW COMMENTS: 1. NORMAL LEFT VENTRICULAR EJECTION FRACTION 55-60% 2. NORMAL WALL MOTION 3. MILD MITRAL REGURGITATION 4. MILD TRICUSPID REGURGITATION 5. MILD TO MODERATE AORTIC INSUFFICIENCY TECHNOLOGIST: JAYLEEN SCHWARZ
[2022-03-28 08:01] LABS: Blood Morphology Comment NOT SEEN (NOT SEEN); Platelet Estimate DECR; White Blood Cell Scan OK (OK)
[2022-03-28] MEDS: AZITHROMYCIN IV 500 MG in NA CHLORIDE 0.9% 250 ML IVPB SCH (09:49)
[2022-03-28] MEDS: CEFTRIAXONE 1,000 MG in NA CHLORIDE 0.9% 50 ML IVPB SCH ×2 (09:52→22:01)
[2022-03-28] MEDS: lisinopriL 20 MG TAB PO SCH ×2 (09:53→22:03)
[2022-03-28] MEDS: SOTALOL HCL 80 MG TAB PO SCH ×2 (09:53→22:02)
[2022-03-28] MEDS: APIXABAN 5 MG TABLET PO SCH ×2 (09:53→22:02)
[2022-03-28] MEDS: ASPIRIN 81 MG CHEWABLE TABLET PO SCH (09:53)
[2022-03-28] MEDS: FUROSEMIDE 40 MG TABLET PO SCH ×2 (10:03→17:31)
[2022-03-28] MEDS: DULERA 200/5 (MOMETASONE/FORMOTEROL) INHALER IH SCH ×2 (10:03→22:14)
[2022-03-28] MEDS: SERTRALINE HCL 50 MG TAB PO SCH (10:03)
--- NOTE | 2022-03-28 11:24 | RAD REPORT ---
EXAM DESCRIPTION: RAD - Chest Pa And Lat (2 Views) - 03/28/2022 10:58 am CLINICAL HISTORY: pneumonia Chest pain. COMPARISON: Chest Single View dated 03/26/2022; Chest Pa And Lat (2 Views) dated 12/04/2021; Chest Pa And Lat (2 Views) dated 01/26/2020; Chest Pa And Lat (2 Views) dated 02/23/2019 FINDINGS: The lungs are hyperexpanded with small opacity posterior right gutter associated with smal l pleural effusion likely representing pneumonia. Overall, relative to the 03/26/2022 study, this anthony ears mildly improved. The heart is moderately enlarged. Aortic atherosclerosis IMPRESSION: Mild to moderate improvement in posterior right base infiltrate/pneumonia.
[2022-03-28] MEDS: ATORVASTATIN 20 MG TAB PO SCH (22:02)
[2022-03-29] MEDS: IPRATROPIUM BROM 0.5MG/2.5ML NEB SCH ×4 (02:50→20:40)
[2022-03-29] MEDS: ALBUTEROL 2.5 MG/3 ML NEB SOL NEB SCH ×4 (02:50→20:40)
[2022-03-29 04:45] LABS: Absolute Lymphocytes (CBC) 0.5 K/uL (0.7-4.9); Hematocrit 35.1 % (36.0-45.0); Lymphocytes % 5.8 % (15.3-44.8); MCV 92.4 fL (80-100); MPV 9.6 fL (7.6-11.3)
[2022-03-29] MEDS: PANTOPRAZOLE 40MG TABLET PO SCH (05:37)
[2022-03-29] MEDS: METHYLPREDNISOLONE 125 MG INJ IV SCH ×3 (05:39→20:04)
[2022-03-29] MEDS: DULERA 200/5 (MOMETASONE/FORMOTEROL) INHALER IH SCH ×2 (08:17→20:04)
[2022-03-29] MEDS: CEFTRIAXONE 1,000 MG in NA CHLORIDE 0.9% 50 ML IVPB SCH ×2 (08:18→20:03)
[2022-03-29] MEDS: FUROSEMIDE 40 MG TABLET PO SCH ×2 (08:21→16:23)
[2022-03-29] MEDS: lisinopriL 20 MG TAB PO SCH ×2 (08:21→20:04)
[2022-03-29] MEDS: AZITHROMYCIN IV 500 MG in NA CHLORIDE 0.9% 250 ML IVPB SCH (08:21)
[2022-03-29] MEDS: APIXABAN 5 MG TABLET PO SCH ×2 (08:21→20:04)
[2022-03-29] MEDS: ASPIRIN 81 MG CHEWABLE TABLET PO SCH (08:21)
[2022-03-29] MEDS: SERTRALINE HCL 50 MG TAB PO SCH (08:22)
[2022-03-29] MEDS: SOTALOL HCL 80 MG TAB PO SCH ×2 (08:22→20:04)
--- NOTE | 2022-03-29 10:28 | PN ---
Date of Progress Note: 03/28/2022 Subjective: The patient was seen this morning for followup. She was lying in bed, on nasal cannula oxygen. No new complaints or problems reported. Overall, her breathing was better. Denies any new complaints. Objective: Vital Signs: Reviewed. HEENT: Unremarkable. Lungs: Clear to auscultation. No wheezing. No rales. Not in any respiratory distress. Heart: Sounds normal. Abdomen: Soft. Bowel sounds normal. No guarding, rigidity, tenderness, distention. Extremities: No leg edema. Laboratory Data: White count 8.3 today with hemoglobin 13.7, platelets 128. Sodium 137, potassium 4 .7, chloride 111, bicarb 23, BUN 30, creatinine 0.83, glucose 177. ProBNP 14,279. Impression: 1.Pneumonia. 2.Acute exacerbation of chronic obstructive pulmonary disease. 3.Thrombocytopenia. 4.Chronic anticoagulation therapy. 5.Chronic atrial fibrillation. Plan: We will go ahead and stop Lovenox, start the patient on Eliquis 5 mg 2 times a day that she ta kes at home. We will repeat CBC tomorrow morning for followup on thrombocytopenia. For pneumonia, w marco antonio will continue current antibiotic which is ceftriaxone and azithromycin, repeat chest x-ray today. We will go ahead and continue current steroids, nebulizer treatment, and nursing staff to try to wean off oxygen if possible today, provided oxygen saturation, remains more than 90% and depending on her condition we will decide if we can possibly discharge her to go home tomorrow or not. Echocardiogra m has shown ejection fraction 55% to 60%, moderate aortic insufficiency, mild mitral and tricuspid insuffic iency, normal wall motion. EMEKA/MODL Voice ID: [id number] Report ID: [id number]
[2022-03-29] MEDS ORDERED: AMLODIPINE 5 MG TAB PO ONE (16:00)
[2022-03-29] MEDS: ATORVASTATIN 20 MG TAB PO SCH (20:04)
[2022-03-30] MEDS: ALBUTEROL 2.5 MG/3 ML NEB SOL NEB SCH ×3 (01:40→14:06)
[2022-03-30] MEDS: IPRATROPIUM BROM 0.5MG/2.5ML NEB SCH ×3 (01:40→14:06)
[2022-03-30] MEDS: PANTOPRAZOLE 40MG TABLET PO SCH (05:25)
[2022-03-30] MEDS: METHYLPREDNISOLONE 125 MG INJ IV SCH ×2 (05:25→09:25)
[2022-03-30 09:14] VITALS: O2SAT 93
[2022-03-30] MEDS: AZITHROMYCIN IV 500 MG in NA CHLORIDE 0.9% 250 ML IVPB SCH (09:22)
[2022-03-30] MEDS: CEFTRIAXONE 1,000 MG in NA CHLORIDE 0.9% 50 ML IVPB SCH (09:23)
[2022-03-30] MEDS: DULERA 200/5 (MOMETASONE/FORMOTEROL) INHALER IH SCH (09:25)
[2022-03-30] MEDS: ASPIRIN 81 MG CHEWABLE TABLET PO SCH (09:26)
[2022-03-30] MEDS: FUROSEMIDE 40 MG TABLET PO SCH ×2 (09:26→17:00)
[2022-03-30] MEDS: SOTALOL HCL 80 MG TAB PO SCH (09:27)
[2022-03-30] MEDS: APIXABAN 5 MG TABLET PO SCH (09:27)
[2022-03-30] MEDS: SERTRALINE HCL 50 MG TAB PO SCH (09:27)
[2022-03-30] MEDS: lisinopriL 20 MG TAB PO SCH (09:27)
[2022-03-30] MEDS ORDERED: AMLODIPINE 5 MG TAB PO ONE (14:45)
[2022-03-30 16:39] VITALS: BP 150/75; TEMP 97
--- NOTE | 2022-03-30 18:39 | PN ---
Date of Progress Note: 03/29/2022 Subjective: The patient was seen this morning for followup. No new complaints, problems reported. The patient lying in bed, not in distress. Objective: Vital Signs: Reviewed. HEENT: Unremarkable. Lungs: Clear to auscultation. Heart: Sounds normal. Abdomen: Soft. Bowel sounds normal. No guarding, rigidity, tenderness, distention. Extremities: No leg edema. Laboratory Data: White count 9.2, hemoglobin 11.6, platelets 197. Impression: 1.Pneumonia. 2.Acute exacerbation of chronic obstructive pulmonary disease. 3.Hypertension. Plan: We will go ahead and continue current antibiotic, oxygen nebulizer treatment, steroid. Ambula tion was encouraged. Social Service will arrange for home oxygen as the patient's room air oxygen sa turation with ambulation is 86%. Possible discharge tomorrow. EMEKA/MODL Voice ID: [id number] Report ID: [id number]
--- NOTE | 2022-04-01 08:28 | DS ---
Date of Discharge: 03/30/2022 Disposition: Discharged to go home. Discharge Medications And Instructions: 1.Continue prior home medication. 2.Use oxygen 2 L/minute via nasal cannula all night and during daytime, use your oxygen while walkin g or if you have any feeling of shortness of breath. 3.Start following new medications and prescription was sent to her Pharmacy from office. a.Cefuroxime 250 mg, take 1 tablet by mouth 2 times a day with food for 1 week. b.Prednisone 10 mg, take 2 tablets by mouth 2 times a day for 4 days, then 2 tablets daily for 4 day s, then 1 tablet daily for 4 days, then half a tab daily for 4 days, then stop, take it with food. 4.Follow up at my office during first or second week of April 2022. Laboratory Data: Upon admission on 03/26/2022; white count 8.4, hemoglobin 13, platelets 216. Yeste rday; white count 9.2, hemoglobin 11.6 platelets 197. Arterial blood gas upon admission; pH 7.25, pC O2 52.9, pO2 230, oxygen saturation 99% on 100% FiO2. Upon admission chemistry; sodium 139, potassiu m 4.5, chloride 105, bicarb 27, BUN 28, creatinine 1.15, glucose 135. Liver function tests unremarka ble. Initial troponin 62.3, second troponin 220, third troponin 222. Last chemistry; sodium 137, po tassium 4.7, chloride 111, bicarb 23, BUN 30, creatinine 0.83, glucose 177. Hospital Course: This is an 81-year-old pleasant female patient, came into emergency room with cough , congestion, shortness of breath. Please see dictated H and P for more information. After the kal ent was evaluated in the emergency room, she was admitted to the hospital with pneumonia and acute ex acerbation of COPD. The patient was started on oxygen replacement therapy, IV antibiotics, nebulizer treatment, and IV steroid. Her home medications were continued. Over a period of time, her conditi on improved and her shortness of breath improved. Her room air oxygen saturation at rest was more th an 90%, but with any attempt to ambulate, it would drop down to 86% to 87% so the patient does qualif y for home oxygen and Social Service was requested to make arrangements for home oxygen and once it w as arranged, the patient was discharged to go home. Overall, she feels better compared to before. T he patient's elevated cardiac enzymes were thought to be due to demand ischemia and not myocardial in farction. Final Diagnoses: 1.Pneumonia. 2.Acute exacerbation of chronic obstructive pulmonary disease. 3.Acute respiratory failure with hypoxia. 4.Chronic atrial fibrillation. 5.Chronic anticoagulation therapy. 6.Hypertension. 7.Hyperlipidemia. 8.Depression. 9.Gastroesophageal reflux disease. 10.Diverticulosis. 11.Allergic rhinitis. EMEKA/MODL Voice ID: [id number] Report ID: [id number]
== END 2022-03-30 17:58 | disposition home or self-care (01) | DRG 193 ==
LOC: ER 21:55 → ERHOLD 03-27 00:20 → 4TH 03-27 07:59
PROVIDERS: ADMIT Internal Medicine; ATTEND Internal Medicine
PROC: 5A09357 Assistance with Respiratory Ventilation, Less than 24 Consecutive Hours, Continuous Positive Airway Pressure (ICD-10-PCS; principal; 2022-03-26)
DX: J18.9 Pneumonia, unspecified organism (principal); J96.01 Acute respiratory failure with hypoxia; I48.20 Chronic atrial fibrillation, unspecified; J44.0 Chronic obstructive pulmonary disease with (acute) lower respiratory infection; J44.1 Chronic obstructive pulmonary disease with (acute) exacerbation; I24.8 Other forms of acute ischemic heart disease; F32.A Depression, unspecified; I10 Essential (primary) hypertension; J30.9 Allergic rhinitis, unspecified; D69.6 Thrombocytopenia, unspecified; K21.9 Gastro-esophageal reflux disease without esophagitis; I25.10 Atherosclerotic heart disease of native coronary artery without angina pectoris; I08.3 Combined rheumatic disorders of mitral, aortic and tricuspid valves; K57.90 Diverticulosis of intestine, part unspecified, without perforation or abscess without bleeding; Z79.01 Long term (current) use of anticoagulants; Z90.710 Acquired absence of both cervix and uterus; Z79.899 Other long term (current) drug therapy; Z87.891 Personal history of nicotine dependence; Z20.822 Contact with and (suspected) exposure to COVID-19
CPT/HCPCS: 0240U; 36415; 71045; 71046; 80048; 80076; 82805; 83605; 83735; 83880; 84145; 84484; 85025; 85610; 87040; 93005; 93306; 94660; 94760; 96374; 96375; 99285; J0456; J1650; J2930; J3535; J7050; J7613; J7644